=== PATIENT | female | born 1960 | race Caucasian/White ===

== ENCOUNTER 2017-10-10 13:52 | Emergency (ER) | payer OTHER, SELFPAY ==
[2017-10-10 13:53] VITALS: BP 174/110; PULSE 125; RESP 18; TEMP 36.8; O2SAT 98; BMI 30.2
--- NOTE | 2017-10-10 14:25 | RAD_ITS ---
STUDY: X-RAY CHEST REASON FOR EXAM: Female, 57 years old. Cough and chest pain. TECHNIQUE: Single AP portable view. COMPARISON: None available. FINDINGS: EKG wires overlie upper chest. The lungs appear well ventilated but show patchy ill-defined opacity in the right lung base, atelectasis versus pneumonia. Mild elevation right diaphragm seen. There is no demonstrated pleural abnormality. No large gross pneumothorax suggested. Normal size heart. Trachea near midline. Normal mediastinum and ladonna. Normal visualized pulmonary arteries. Normal visualized aortic arch and descending thoracic aorta. Normal visualized thoracic spine, ribs, clavicles and shoulders. There is no demonstrated abnormality of the visualized soft tissue structures of the upper abdomen. No subdiaphragmatic free air seen grossly. RAD/Chest 1 View (Portable) IMPRESSION: Right lung base heterogeneous opacity, atelectasis versus pneumonia. Clinical correlation follow-up recommended with repeat chest in 4-6 weeks after treatment to demonstrate complete clearing to exclude low probability neoplasm. Electronically Signed: Javed Aquino, at 15:48 EDT Tel , Service support ,
[2017-10-10] MEDS: LORazepam 2 MG/ML Syringe IV (14:34)
[2017-10-10] MEDS: 0.9% Normal Saline 1,000 ML 1000 ML IV (14:34)
[2017-10-10 14:41] LABS: Amphetamine Urine VISTA NEGATIVE (<1000 ng/mL); Barbiturate Urine VISTA NEGATIVE (< 200 ng/mL); Benzodiazepine Urine VISTA NEGATIVE (< 200 ng/mL); Cocaine Urine VISTA NEGATIVE (< 300 ng/mL); Ecstacy Urine VISTA NEGATIVE (< 500 ng/mL); Methadone Urine VISTA NEGATIVE (< 300 ng/mL); PCP Urine VISTA NEGATIVE (< 25 ng/mL); THC Urine VISTA NEGATIVE (< 50 ng/mL); Vista UDS pH Range 5
[2017-10-10 14:46] LABS: BUN 23 mg/dL (7-18); Creatinine, Serum 1.05 mg/dL (0.55-1.02); Glucose 93 mg/dL (74-106)
[2017-10-10 14:47] LABS: ALB/GLOB Ratio 1.1 RATIO (0.9-2.4); AST(SGOT) 37 U/L (15-37); Alanine Aminotransfer ALT/SGPT 39 U/L (13-56); Albumin, Serum 4.8 g/dL (3.2-5.0); Alkaline Phosphatase 77 U/L (45-117); Anion Gap 18 (5-15); BUN/Creat Ratio 21.9 RATIO (10-20); Calcium,Total 9.7 mg/dL (8.5-10.1); Chloride 103 mmol/L (98-107); EST Glomerular Filtration Rate 57 mL/min (>60); Est Glom Filt Rate - Afr Amer 69 mL/min (>60); Estimated Creatinine Clearance 46.19 ml/min; Globulin 4.3 g/dL (2.2-4.2); Lipase 220 U/L (73-393); Potassium 4.2 mmol/L (3.5-5.1); Protein, Total 9.1 g/dL (6.4-8.2); Sodium Level 138 mmol/L (136-145)
--- NOTE | 2017-10-10 15:39 | ED.DCSUM_ITS ---
- ER Visit Summary Date of Service: 10/10/17 Chief Complaint: [alcohol abuse] History of Present Illness: The patient is a 57 F [that presents following drinking for the last 4 days. She states she drinks a pint of vodka a day. Initially she stated she drank every day and then she later stated she does not drink every day. Her last drink was last evening. She does not appear intoxicated. She is mildly tachycardic. She does not appear altered or delirious. She is not currently having any hallucinations or tremors. She appears well and nontoxic. She has no other complaints.] Physical Examination: [General: The patient appears well and in no apparent distress. Patient is resting comfortably on cart. Skin: Warm, dry, no pallor noted. No rash. Head: Normocephalic, atraumatic Neck: Supple, nontender. Eye: PERRLA, EOMI ENT: Moist mucus membranes, pharynx within normal limits. Cardiovascular: Tachycardic rate and regular rhythm, no gallups or rubs Respiratory: Patient is in no distress, no accessory muscle use, lungs are clear to auscultation, no wheezing, rales or rhonchi Musculoskeletal: normal ROM, no deformity, no tenderness, no swelling. 2+ radial and DP pulses symmetric. GI: No tenderness to palpation, no masses appreciated. No rebound, guarding, or rigidity noted. Neurological: A&O, normal strength and sensation. GCS 15 Psychiatric: Cooperative] Test Results: [CMP within normal limits other than CO2 of 17. Liver enzymes and lipase within normal limits. Alcohol level was 89. Urine drug screen was negative. Chest x-ray shows no acute process in my evaluation.] Emergency Department Course and Treatment: [She was given IV fluids and IV Ativan with improvement of symptoms. On reevaluation at 1530 her vitals are stable, heart rate in the 90s and blood pressure is improved. She feels overall improved. She was given 50 mg of p.o. Librium. Initially I requested to admit the patient to the hospitalist for further treatment. Dr. Crowley evaluated the patient in the emergency department and does not feel she requires admission at this time. I spoke with patient again and at this time she is requesting discharge. Patient has changed her initial story somewhat now stating that she does not drink every day. She has no symptoms of DTs at this time. She will be given follow-up with the counseling center. She does not currently want detox. She understands to return with any new or worsening symptoms. Patient discharged home in improved condition.] Treatment Plan: [see above] Disposition: [discharge home, stable condition] Impression: [Alcohol Abuse] This note was generated with [employer] dictation software. It may contain incorrect words, spelling, and punctuation that were not noted in review of the chart prior to signing ED Disposition - Plan for ED Patient: Disposition: Home or Assisted Living Chief Complaint: Substance Abuse Instructions: ED Alcohol Abuse Referrals: Juan Jose Calix MD [STAFF PHYSICIAN] - Counseling,Center [GROUP OF PHYSICIANS] -
[2017-10-10] MEDS: chlordiazePOXIDE 25 MG Capsule 50 MG PO (15:50)
[2017-10-10 15:55] VITALS: BP 144/83; PULSE 100; RESP 17; O2SAT 100
--- NOTE | 2017-10-10 16:03 | PCM.CONS.GEN ---
Problem List (1) Alcohol abuse Status: Acute Reason for Consult Date of Consultation: 10/10/17 Reason for Consultation: alcohol abuse History of Present Illness: The patient is a 57 year old F who has been drinking a pint of vodka daily for the past 4 days. Patient states that she normally drinks 2 or 3 times per week. Patient states that days that she typically does not drink she feels okay. Patient has been sober in the past for about a month without any issues. Patient was just concerned because she drank for those 4 consecutive days and sought to seek treatment. Patient did receive Ativan in the emergency room the patient for potential admission. [] Past Medical History Medical History: Medical History (Last Updated 10/10/17 @ 16:05 by Jose Crowley DO) CAD (coronary artery disease) I25.10 Depression F32.9 HTN (hypertension) I10 Allergies sulfamethoxazole [From Bactrim] Allergy (Verified 10/10/17 13:55) Rash trimethoprim [From Bactrim] Allergy (Verified 10/10/17 13:55) Rash Home Medications: Ambulatory Orders Medication Instructions Recorded Atorvastatin Calcium [Atorvastatin 80 mg PO QHS 10/10/17 Calcium] Clopidogrel Bisulfate [Plavix] 75 mg PO DAILY 10/10/17 Lisinopril [Lisinopril] 20 mg PO DAILY 10/10/17 Sertraline HCl [Zoloft] 100 mg PO DAILY 10/10/17 Lives: Alone Smoking Status: Heavy Smoker (>10/day) Tobacco Use: Cigarettes Alcohol: Heavy Drugs: None - *Family History Maternal History Items: - - no CAD Review of Systems Constitutional: Denies: Chills, Fever, Weight Change Eyes: Reports: - - Sees spots but has been ongoing long time according the patient.. Denies: Blurred vision, Double vision HEENT: Denies: Head Aches, Sinus Congestion, Sinus Drainage Cardiovascular: Denies: Chest Pain, Palpitations Respiratory: Denies: Cough, Shortness of breath at rest, Sputum production Gastrointestinal: Denies: Abdominal Pain, Nausea, Vomiting Genitourinary: Denies: Dysuria Musculoskeletal: Denies: Joint Pain, Joint Tenderness Skin: Denies: Rash, Wounds Neurological: Denies: Numbness, Tingling, Focal weakness Psychiatric: Reports: Depression. Denies: Anxiety Hematologic/ Lymphatic: Denies: Easy Bruising, Easy Bleeding, Hx of blood clot Comment: All review of systems are negative except as mentioned in the history of present illness and the other review of systems. - Physical Exam General: Alert, Cooperative, No apparent distress HEENT: Atraumatic, Normocephalic Oral: Moist Mucosa, No Gingival or Mucosal Lesions/ Ulcerations Neck: No Nodes, Thyroid Normal Size and Texture Lungs: Clear to auscultation, Normal air movement, No rhonchi, No wheeze Cardiovascular: Regular rate, Regular Rhythm, Normal S1, Normal S2 Abdomen: Bowel Sounds Present, Soft, Non Tender, Non-Distended Extremities: No edema, No Calf Tenderness Skin: No rashes, No breakdown Psych/Mental Status: Normal Affect, Appropriate Vital Signs Temp Pulse Resp BP Pulse Ox 36.8 C 100 17 144/83 H 100 10/10/17 13:53 10/10/17 15:55 10/10/17 15:55 10/10/17 15:55 10/10/17 15:55 Oxygen Delivery Method Room Air Weight: 74.843 kg Body Mass Index (BMI) 30.2 Laboratory Tests Past 24 Hrs 10/10/17 10/10/17 10/10/17 14:20 14:20 14:20 Sodium 138 Potassium 4.2 Chloride 103 Carbon Dioxide 17.0 L Anion Gap 18 H BUN 23 H Creatinine 1.05 H Estim Creat Clear Calc 46.19 Est GFR (MDRD) Af Amer 69 Est GFR (MDRD) Non-Af 57 L BUN/Creatinine Ratio 21.9 H Glucose 93 Calcium 9.7 Total Bilirubin 0.40 AST 37 ALT 39 Alkaline Phosphatase 77 Total Protein 9.1 H Albumin 4.8 Globulin 4.3 H Albumin/Globulin Ratio 1.1 Lipase 220 Urine Opiates Screen NEGATIVE Urine Methadone Screen NEGATIVE Ur Barbiturates Screen NEGATIVE Ur Phencyclidine Scrn NEGATIVE Ur Amphetamines Screen NEGATIVE U Methamphetamin-MDMA NEGATIVE U Benzodiazepines Scrn NEGATIVE Urine Cocaine Screen NEGATIVE U Cannabinoids Screen NEGATIVE Ur Drug Screen Comment Ethyl Alcohol 89.0 Assessment/Plan All Active Problems Alcohol abuse (Acute) 1. Alcohol abuse Patient's last drink was last night Current calculated CIWA is 5 and therefore does not require inpatient treatment at this time. The patient did receive Ativan before this. Additionally make my decision with exception of these past 4 days. I do not feel that an of itself is a requirement for the patient be admitted for acute alcohol withdrawal Certainly the patient's symptoms were to get worse and she concerned for admission. Patient is not telling us in the truth about her actual alcohol consumption but I did ask the patient on several occasions that and had her clarify that she only drinks 2-3 times per week usually. Patient already has outpatient establishment with the counselors as well as AA. Patient encouraged to continue with those or restart this at her earliest convenience. Overall, the patient is stable and does not require inpatient hospitalization at this time. Thank you for the consult. Code Visit Office Visits / Consults: [id number] OP Consult L4
--- NOTE | 2017-10-10 16:09 | CON.PCM_ITS ---
Problem List (1) Alcohol abuse Status: Acute Reason for Consult Date of Consultation: 10/10/17 Reason for Consultation: alcohol abuse History of Present Illness: The patient is a 57 year old F who has been drinking a pint of vodka daily for the past 4 days. Patient states that she normally drinks 2 or 3 times per week. Patient states that days that she typically does not drink she feels okay. Patient has been sober in the past for about a month without any issues. Patient was just concerned because she drank for those 4 consecutive days and sought to seek treatment. Patient did receive Ativan in the emergency room the patient for potential admission. [] Past Medical History Medical History: Medical History (Last Updated 10/10/17 @ 16:05 by Jose Crowley DO) CAD (coronary artery disease) I25.10 Depression F32.9 HTN (hypertension) I10 Allergies sulfamethoxazole [From Bactrim] Allergy (Verified 10/10/17 13:55) Rash trimethoprim [From Bactrim] Allergy (Verified 10/10/17 13:55) Rash Home Medications: Ambulatory Orders Medication Instructions Recorded Atorvastatin Calcium [Atorvastatin 80 mg PO QHS 10/10/17 Calcium] Clopidogrel Bisulfate [Plavix] 75 mg PO DAILY 10/10/17 Lisinopril [Lisinopril] 20 mg PO DAILY 10/10/17 Sertraline HCl [Zoloft] 100 mg PO DAILY 10/10/17 Lives: Alone Smoking Status: Heavy Smoker (>10/day) Tobacco Use: Cigarettes Alcohol: Heavy Drugs: None - *Family History Maternal History Items: - - no CAD Review of Systems Constitutional: Denies: Chills, Fever, Weight Change Eyes: Reports: - - Sees spots but has been ongoing long time according the patient.. Denies: Blurred vision, Double vision HEENT: Denies: Head Aches, Sinus Congestion, Sinus Drainage Cardiovascular: Denies: Chest Pain, Palpitations Respiratory: Denies: Cough, Shortness of breath at rest, Sputum production Gastrointestinal: Denies: Abdominal Pain, Nausea, Vomiting Genitourinary: Denies: Dysuria Musculoskeletal: Denies: Joint Pain, Joint Tenderness Skin: Denies: Rash, Wounds Neurological: Denies: Numbness, Tingling, Focal weakness Psychiatric: Reports: Depression. Denies: Anxiety Hematologic/ Lymphatic: Denies: Easy Bruising, Easy Bleeding, Hx of blood clot Comment: All review of systems are negative except as mentioned in the history of present illness and the other review of systems. - Physical Exam General: Alert, Cooperative, No apparent distress HEENT: Atraumatic, Normocephalic Oral: Moist Mucosa, No Gingival or Mucosal Lesions/ Ulcerations Neck: No Nodes, Thyroid Normal Size and Texture Lungs: Clear to auscultation, Normal air movement, No rhonchi, No wheeze Cardiovascular: Regular rate, Regular Rhythm, Normal S1, Normal S2 Abdomen: Bowel Sounds Present, Soft, Non Tender, Non-Distended Extremities: No edema, No Calf Tenderness Skin: No rashes, No breakdown Psych/Mental Status: Normal Affect, Appropriate Vital Signs Temp Pulse Resp BP Pulse Ox 36.8 C 100 17 144/83 H 100 10/10/17 13:53 10/10/17 15:55 10/10/17 15:55 10/10/17 15:55 10/10/17 15:55 Oxygen Delivery Method Room Air Weight: 74.843 kg Body Mass Index (BMI) 30.2 Laboratory Tests Past 24 Hrs 10/10/17 10/10/17 10/10/17 14:20 14:20 14:20 Sodium 138 Potassium 4.2 Chloride 103 Carbon Dioxide 17.0 L Anion Gap 18 H BUN 23 H Creatinine 1.05 H Estim Creat Clear Calc 46.19 Est GFR (MDRD) Af Amer 69 Est GFR (MDRD) Non-Af 57 L BUN/Creatinine Ratio 21.9 H Glucose 93 Calcium 9.7 Total Bilirubin 0.40 AST 37 ALT 39 Alkaline Phosphatase 77 Total Protein 9.1 H Albumin 4.8 Globulin 4.3 H Albumin/Globulin Ratio 1.1 Lipase 220 Urine Opiates Screen NEGATIVE Urine Methadone Screen NEGATIVE Ur Barbiturates Screen NEGATIVE Ur Phencyclidine Scrn NEGATIVE Ur Amphetamines Screen NEGATIVE U Methamphetamin-MDMA NEGATIVE U Benzodiazepines Scrn NEGATIVE Urine Cocaine Screen NEGATIVE U Cannabinoids Screen NEGATIVE Ur Drug Screen Comment Ethyl Alcohol 89.0 Assessment/Plan All Active Problems Alcohol abuse (Acute) 1. Alcohol abuse * Patient's last drink was last night * Current calculated CIWA is 5 and therefore does not require inpatient treatment at this time. The patient did receive Ativan before this. Additionally make my decision with exception of these past 4 days. I do not feel that an of itself is a requirement for the patient be admitted for acute alcohol withdrawal * Certainly the patient's symptoms were to get worse and she concerned for admission. Patient is not telling us in the truth about her actual alcohol consumption but I did ask the patient on several occasions that and had her clarify that she only drinks 2-3 times per week usually. * Patient already has outpatient establishment with the counselors as well as AA. Patient encouraged to continue with those or restart this at her earliest convenience. Overall, the patient is stable and does not require inpatient hospitalization at this time. Thank you for the consult. Code Visit Office Visits / Consults: [id number] OP Consult L4
== END 2017-10-10 15:56 | disposition home or self-care (01) ==
PROVIDERS: Emergency Provider Emergency Medicine
DX: F10.10 Alcohol abuse, uncomplicated (principal); Y90.4 Blood alcohol level of 80-99 mg/100 ml; I25.10 Atherosclerotic heart disease of native coronary artery without angina pectoris; I10 Essential (primary) hypertension; F17.210 Nicotine dependence, cigarettes, uncomplicated; F32.9 Major depressive disorder, single episode, unspecified; I25.2 Old myocardial infarction; Z79.02 Long term (current) use of antithrombotics/antiplatelets; Z79.899 Other long term (current) drug therapy
CPT/HCPCS: 71045; 80053; 80307; 80320; 83690; 93005; 96361; 96374; 99285; J7030; A4216; G0480

== ENCOUNTER 2017-10-11 11:51 | Emergency (ER) | payer OTHER, SELFPAY ==
[2017-10-11 11:51] VITALS: BP 125/99; PULSE 120; RESP 20; TEMP 37.2; O2SAT 96; BMI 30.3
[2017-10-11 12:30] LABS: Absolute Lymphocyte Count 1.17 X10^3/ul (0.83-4.51); Absolute Neutrophil Count 4.9 X10^3/uL (2.0-7.7); Basophil# 0.04 X10^3/uL; Basophil% 0.6 % (0-1); Eosinophil# 0.05 X10^3/uL; Eosinophils% 0.8 % (0-5); Hematocrit 36.4 % (37-47); Hemoglobin 12.1 g/dl (12.0-15.0); Lymphocyte # 1.17 X10^3/ul (4.0); Lymphocyte % 18.2 % (19-41); Mean Corp Hgb Conc 33.2 g/gl (32-36); Mean Corpuscular Hgb 32.1 pg (27.0-32.0); Mean Corpuscular Volume 96.6 fL (81-99); Monocyte# 0.26 X10^3/uL; Neutrophil % 76.1 % (47-70); Platelet Count 141 K/mm3 (150-450); RBC Distribution Width CV 15.1 % (11.6-14.6); RBC Distribution Width SD 53.6 fl (35.1-43.9); Red Blood Count 3.77 M/mm3 (4.2-5.4); White Blood Count 6.4 K/mm3 (4.4-11.0)
[2017-10-11 12:31] LABS: POSITIVE COUNT NO; POSITIVE DIFFERENTIAL NO; POSITIVE MORPHOLOGY NO
[2017-10-11 12:47] LABS: Anion Gap 8 (5-15); BUN 16 mg/dL (7-18); BUN/Creat Ratio 21.8 RATIO (10-20); Chloride 105 mmol/L (98-107); Creatinine, Serum 0.73 mg/dL (0.55-1.02); EST Glomerular Filtration Rate 87 mL/min (>60); Est Glom Filt Rate - Afr Amer 105 mL/min (>60); Estimated Creatinine Clearance 66.44 ml/min; Glucose 147 mg/dL (74-106); Potassium 3.3 mmol/L (3.5-5.1); Sodium Level 139 mmol/L (136-145)
--- NOTE | 2017-10-11 13:15 | ED.VISSUMM ---
- ER Visit Summary Date of Service: 10/11/17 Chief Complaint: Palpitations, alcohol withdrawal History of Present Illness: The patient is a 57 F who presents with the above symptoms. She was seen here last night requesting alcohol withdrawal detoxification and admission to the hospital. She met no criteria last night. She comes back today with similar symptoms. She feels like her heart is racing. No chest pain. She did not drink anything last night. She states that she was drinking about a pint of liquor per day. Her last drink was 2 days ago. Physical Examination: Vital signs reviewed. HEENT exam unremarkable. Heart is tachycardic and regular rhythm without murmurs. Lungs are clear to auscultation. Abdomen is soft and nontender. Extremities reveal no edema. Skin exam normal. Neurologic exam normal. Test Results: EKG is sinus rhythm with rate of 107. No ST changes. Labs reveal platelet count of 141, potassium 3.3, glucose 147. Troponin normal Emergency Department Course and Treatment: Repeat heart rate of the patient is 85. Her heart rate is likely due to a little bit of withdrawal. I had [facility] come down and evaluate the patient. Her Ciwa score is a 4 which does not qualify her for admission. Patient will be discharged to manage as an outpatient. Treatment Plan: [] Disposition: Discharge Impression: Alcohol withdrawal This note was generated with [employer] dictation software. It may contain incorrect words, spelling, and punctuation that were not noted in review of the chart prior to signing ED Disposition - Plan for ED Patient: Chief Complaint: Chest Pain Referrals: Care Physician,No Primary [Primary Care Provider] -
--- NOTE | 2017-10-11 13:17 | ED.DEP ---
ED Disposition - Plan for ED Patient: Disposition: Home or Assisted Living Chief Complaint: Chest Pain Instructions: ED Withdrawal Alcohol Referrals: Care Physician,No Primary [Primary Care Provider] -
[2017-10-11 13:23] VITALS: BP 152/83; PULSE 108; RESP 21; O2SAT 96
[2017-10-11] MEDS: 0.9% Normal Saline 1,000 ML 1000 ML IV (13:23)
[2017-10-11 13:26] VITALS: BP 152/83; PULSE 97; RESP 13; O2SAT 97
== END 2017-10-11 13:36 | disposition home or self-care (01) ==
PROVIDERS: Emergency Provider Emergency Medicine
DX: F10.239 Alcohol dependence with withdrawal, unspecified (principal); I25.10 Atherosclerotic heart disease of native coronary artery without angina pectoris; Z79.02 Long term (current) use of antithrombotics/antiplatelets; Z79.899 Other long term (current) drug therapy; Z95.5 Presence of coronary angioplasty implant and graft
CPT/HCPCS: 80048; 84484; 85025; 93005; 99284; J7030

== ENCOUNTER 2018-01-30 22:55 | Emergency (ER) | payer OTHER, SELFPAY ==
[2018-01-30 22:57] VITALS: BP 143/74; PULSE 110; RESP 17; TEMP 35.8; O2SAT 94; BMI 39.6
--- NOTE | 2018-01-30 23:19 | EKG12_ITS ---
Test Reason : [facility] [place] Blood Pressure : / mmHG Vent. Rate : 094 BPM Atrial Rate : 094 BPM P-R Int : 160 ms QRS Dur : 086 ms QT Int : 402 ms P-R-T Axes : 036 078 082 degrees QTc Int : 502 ms Normal sinus rhythm Possible Inferior infarct , age undetermined Cannot rule out Anterior infarct , age undetermined Prolonged QT Abnormal ECG Confirmed by SALLY CARSON, JAE ([id number]), medical editor ABIMAEL CLARK ([id number]) on 02/04/2018 3:42:26 PM Referred By: MARY Confirmed By:JAE ZAVALA MD
--- NOTE | 2018-01-30 23:30 | ED.RN ---
bedside one on one observation started.
[2018-01-30 23:39] LABS: Absolute Lymphocyte Count 3.08 X10^3/ul (0.83-4.51); Absolute Neutrophil Count 3.1 X10^3/uL (2.0-7.7); Basophil# 0.11 X10^3/uL; Basophil% 1.6 % (0-1); Eosinophil# 0.22 X10^3/uL; Eosinophils% 3.1 % (0-5); Hematocrit 39.6 % (37-47); Hemoglobin 12.2 g/dl (12.0-15.0); Lymphocyte # 3.08 X10^3/ul (4.0); Lymphocyte % 43.6 % (19-41); Mean Corp Hgb Conc 30.8 g/gl (32-36); Mean Corpuscular Hgb 25.8 pg (27.0-32.0); Mean Corpuscular Volume 83.9 fL (81-99); Mean Platelet Vol. 9.1 fl (6.2-12.0); Monocyte# 0.52 X10^3/uL; Monocyte% 7.4 % (0-10); Neutrophil # 3.08 X10^3/uL (2.7-7.7); Neutrophil % 43.6 % (47-70); Platelet Count 297 K/mm3 (150-450); RBC Distribution Width SD 51.9 fl (35.1-43.9); Red Blood Count 4.72 M/mm3 (4.2-5.4); White Blood Count 7.1 K/mm3 (4.4-11.0)
[2018-01-30 23:40] LABS: POSITIVE COUNT NO; POSITIVE DIFFERENTIAL NO; POSITIVE MORPHOLOGY NO
[2018-01-30 23:56] LABS: ALB/GLOB Ratio 0.8 RATIO (0.9-2.4); AST(SGOT) 24 U/L (15-37); Alanine Aminotransfer ALT/SGPT 25 U/L (13-56); Albumin, Serum 3.8 g/dL (3.2-5.0); Alkaline Phosphatase 121 U/L (45-117); Anion Gap 10 (5-15); BUN 19 mg/dL (7-18); BUN/Creat Ratio 25.2 RATIO (10-20); Calcium,Total 8.6 mg/dL (8.5-10.1); Chloride 109 mmol/L (98-107); Creatinine, Serum 0.76 mg/dL (0.55-1.02); EST Glomerular Filtration Rate 84 mL/min (>60); Est Glom Filt Rate - Afr Amer 101 mL/min (>60); Estimated Creatinine Clearance 63.82 ml/min; Globulin 4.5 g/dL (2.2-4.2); Glucose 114 mg/dL (74-106); Potassium 3.6 mmol/L (3.5-5.1); Protein, Total 8.3 g/dL (6.4-8.2); Sodium Level 143 mmol/L (136-145)
[2018-01-31] VITALS (9 sets, daily range): BP systolic 106–154; BP diastolic 63–79; PULSE 78–100; RESP 15–19; O2SAT 88–95
--- NOTE | 2018-01-31 00:21 | ED.RN ---
CRITICAL ETOH OF [address] HERNANDEZ NOTIFIED. NO NEW ORDERS.
[2018-01-31] MEDS: LORazepam 1 MG Tablet PO (00:30)
--- NOTE | 2018-01-31 00:30 | ED.RN ---
PATIENT VERY ANXIOUS AND DEPRESSED. 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 PT ASKING TO LEAVE AND ALLOW STAFF TO LET HER . PT CONTINOUSLY STATES SHE WANTS TO AND IS VERY TEARFUL. PT AT DESK FOR 15MIN AND EVENTUALLY AGREED TO GO BACK INTO ROOM AFTER THERAPEUTIC CONVERSATION AND LISTENING TO HER. PT REMAINED VERY TEARFUL, UPSET, AND ANXIOUS BUT DID TAKE ATIVAN PO.
--- NOTE | 2018-01-31 01:30 | ED.RN ---
PATIENT APPEARS TO BE SLEEPING AND IS RESTING QUIETLY. SITTER AT BEDSIDE
--- NOTE | 2018-01-31 03:18 | ED.DCSUM_ITS ---
- ER Visit Summary Date of Service: 01/31/18 Chief Complaint: Suicidal ideation History of Present Illness: The patient is a 57 F who presents stating that she does not want to live anymore. No suicidal plan. She states her brother killed himself earlier this year in October via a gunshot wound. No recent medical illness such as fever chest pain shortness of breath vomiting diarrhea. She is intoxicated on alcohol. Physical Examination: Heart rate 110 vitals otherwise unremarkable Patient tearful and admits to suicidal thoughts and not wanting to live Heart regular rhythm tachycardia Lungs are clear Abdomen soft Alert Test Results: EKG shows normal sinus rhythm at a rate of 94. Labs essentially unremarkable except alcohol 321. Urine drug screen pending. Emergency Department Course and Treatment: Patient was given Ativan here. Laboratory workup as above. Urine drug screen pending. Patient will be evaluated by crisis this morning once clinically sober for final disposition. Treatment Plan: [] Disposition: Pending crisis evaluation Impression: Suicidal ideation Depression This note was generated with [employer] dictation software. It may contain incorrect words, spelling, and punctuation that were not noted in review of the chart prior to signing ED Disposition - Plan for ED Patient: Chief Complaint: Suicidal Referrals: Care Physician,No Primary [Primary Care Provider] -
[2018-01-31 04:46] LABS: Amphetamine Urine VISTA NEGATIVE (<1000 ng/mL); Barbiturate Urine VISTA NEGATIVE (< 200 ng/mL); Benzodiazepine Urine VISTA NEGATIVE (< 200 ng/mL); Cocaine Urine VISTA NEGATIVE (< 300 ng/mL); Ecstacy Urine VISTA NEGATIVE (< 500 ng/mL); Methadone Urine VISTA NEGATIVE (< 300 ng/mL); PCP Urine VISTA NEGATIVE (< 25 ng/mL); THC Urine VISTA NEGATIVE (< 50 ng/mL); Vista UDS pH Range 5
--- NOTE | 2018-01-31 04:47 | ED.RN ---
PATIENT AWAKE AND SITTING AT BEDSIDE AFTER GOING TO THE BR TO URINATE. PT COOPERATIVE AT THIS TIME.
[2018-01-31] MEDS: Clopidogrel Bisulfate 75 MG Tablet PO (09:55)
[2018-01-31] MEDS: Lisinopril 20 MG Tablet PO (09:55)
--- NOTE | 2018-01-31 10:18 | NURSING ---
CALLED CRISIS. LEFT MESSAGE WITH ZAC VAZQUEZ.
--- NOTE | 2018-01-31 10:35 | NURSING ---
POLO, CRISIS, CALLED BACK. HE WILL BE OVER
[2018-01-31] MEDS: FLUoxetine 20 MG Capsule 40 MG PO (10:36)
--- NOTE | 2018-01-31 11:31 | NURSING ---
POLO, CRISIS, HERE
--- NOTE | 2018-01-31 14:07 | ED.RN ---
suicide precautions d/c'd. belongings returned.
--- NOTE | 2018-01-31 14:10 | ED.DEP ---
ED Disposition - Plan for ED Patient: Disposition: Home or Assisted Living Chief Complaint: Suicidal Instructions: ED Depression, ED Alcohol Intoxication Referrals: Counseling,Center [GROUP OF PHYSICIANS] - As soon as possible Additional Instructions: Follow-up with a counseling center. Follow-up with alcohol counseling in your area.
--- OUTSIDE RECORDS SUMMARY | 2018-03-28 00:07 | XMS RPT_ITS ---
:1960 Author Organization [facility] Support Name Relationship Address Phone [facility] Unavailable [address] + [place] [address] ОЛЬГА FIELDS Unavailable Unavailable + [facility] Unavailable [address] + [place] [address] ОЛЬГА FIELDS Unavailable Unavailable + White, Toyin Unavailable Unavailable + White, Toyin Unavailable Unavailable + White, Toyin Unavailable Unavailable + White, Toyin Unavailable Unavailable + White, Toyin Unavailable Unavailable + White, Toyin Unavailable Unavailable + White, Toyin Unavailable Unavailable + White, Toyin Unavailable Unavailable + White, Toyin Unavailable Unavailable + White, Toyin Unavailable Unavailable + White, Toyin Unavailable Unavailable + White, Toyin Unavailable Unavailable + White, Toyin Unavailable Unavailable + White, Toyin Unavailable Unavailable + [facility] Unavailable [address] + [place] [address] ОЛЬГА FIELDS Unavailable Unavailable + [facility] Unavailable [address] + [place] [address] ОЛЬГА FIELDS Unavailable Unavailable + [facility] Unavailable . +[place] [address] ОЛЬГА FIELDS Unavailable Unavailable + White, Toyin Unavailable Unavailable + White, Toyin Unavailable Unavailable + White, Toyin Unavailable Unavailable + White, Toyin Unavailable Unavailable + White, Toyin Unavailable Unavailable + Care Team Providers Name Role Phone Primay Care Physicia, No Primary Care Unavailable Gilberto Greene Attending Unavailable SUMMER BARNEY Primary Care Unavailable Chapin Hogan Attending Unavailable Jose Crowley Attending Unavailable SUMMER BARNEY Primary Care Unavailable Gilberto Greene Attending Unavailable Primay Care Physicia, No Primary Care Unavailable Primay Care Physicia, No Primary Care Unavailable Carlos Celestin Attending Unavailable Nasima Borrego Attending Unavailable PROVIDER, UNKNOWN Referring Unavailable Mahogany, Sonya Primary Care Unavailable Lefty Souza Attending Unavailable PROVIDER, UNKNOWN Referring Unavailable Mahogany, Sonya Primary Care Unavailable Al Zavala Attending Unavailable PROVIDER, UNKNOWN Referring Unavailable Mahogany, Sonya Primary Care Unavailable Kishor Lowry Attending Unavailable PROVIDER, UNKNOWN Referring Unavailable Mahogany, Sonya Primary Care Unavailable Kishor Lowry Attending Unavailable PROVIDER, UNKNOWN Referring Unavailable Mahogany, Sonya Primary Care Unavailable Kishor Lowry Attending Unavailable PROVIDER, UNKNOWN Referring Unavailable Mahogany, Sonya Primary Care Unavailable DE BARKER Attending Unavailable PROVIDER, UNKNOWN Referring Unavailable Mahogany, Sonya Primary Care Unavailable Chace Wahl Attending Unavailable PROVIDER, UNKNOWN Referring Unavailable Mahogany, Sonya Primary Care Unavailable PROVIDER, UNKNOWN Referring Unavailable Mahogany, Sonya Primary Care Unavailable Al Zavala Attending Unavailable Chace Wahl Attending Unavailable PROVIDER, UNKNOWN Referring Unavailable Mahogany, Sonya Primary Care Unavailable PROVIDER, UNKNOWN Referring Unavailable Mahogany, Sonya Primary Care Unavailable Kishor Lowry Attending Unavailable Kishor Lowry Attending Unavailable PROVIDER, UNKNOWN Referring Unavailable Mahogany, Sonya Primary Care Unavailable Lefty Souza Attending Unavailable PROVIDER, UNKNOWN Referring Unavailable Mahogany, Sonya Primary Care Unavailable Nasima Borrego Attending Unavailable PROVIDER, UNKNOWN Referring Unavailable Mahogany, Sonya Primary Care Unavailable [place], Imola Attending Unavailable PROVIDER, UNKNOWN Referring Unavailable Mahogany, Sonya Primary Care Unavailable [place], Imola Attending Unavailable PROVIDER, UNKNOWN Referring Unavailable Mahogany, Sonya Primary Care Unavailable PROVIDER, UNKNOWN Referring Unavailable Mahogany, Sonya Primary Care Unavailable AlishaAnnemarient Attending Unavailable PROVIDER, UNKNOWN Referring Unavailable Mahogany, Sonya Primary Care Unavailable PROVIDER, UNKNOWN Attending Unavailable Chace Wahl Attending Unavailable PROVIDER, UNKNOWN Referring Unavailable Mahogany, Sonya Primary Care Unavailable Jim Celeste Attending Unavailable PROBLEMS PROBLEMS DATE TYPE CONDITION / CODE ATTENDING STATUS SOURCE Admitting Major depressive Alisha Jadiel [employer] 8 Diagnosis disorder, single System episode, unspecified Repository / F32.9(ICD-10) Admitting Anxiety disorder, El[place] [facility] 8 Diagnosis unspecified / System F41.9(ICD-10) Repository Admitting Essential (primary) Alisha [facility] 8 Diagnosis hypertension / System I10(ICD-10) Repository Admitting Nicotine dependence, [place], Jadiel [employer] 8 Diagnosis unspecified, System uncomplicated / Repository F17.200(ICD-10) Admitting rn integrity (current) Alisha Jadiel [employer] 8 Diagnosis use of aspirin / System Z79.82(ICD-10) Repository Admitting Other psychoactive Alisha Jadiel [employer] 8 Diagnosis substance abuse, in System remission / Repository F19.11(ICD-10) Admitting Anemia, unspecified / Alisha Jadiel [employer] 8 Diagnosis D64.9(ICD-10) System Repository Admitting Hemorrhage of anus Alisha, Jadiel [employer] 8 Diagnosis and rectum / System K62.5(ICD-10) Repository Admitting Psoriasis, Alisha, Jadiel [employer] 8 Diagnosis unspecified / System L40.9(ICD-10) Repository Admitting Acquired absence of [place], [facility] 8 Diagnosis both cervix and System uterus / Repository Z90.710(ICD-10) Admitting Allergy status to Jadiel Brito [facility] 8 Diagnosis sulfonamides status / System Z88.2(ICD-10) Repository Admitting Nicotine dependence, Unknown [facility] 8 Diagnosis cigarettes, System uncomplicated / Repository F17.210(ICD-10) Admitting Unsp fracture of unsp Unknown [facility] 8 Diagnosis thoracic vertebra, System init for clos fx / Repository S22.009A(ICD-10) Admitting Pain in thoracic Unknown [facility] 8 Diagnosis spine / M54.6(ICD-10) System Repository Admitting Other spondylosis, Unknown [facility] 8 Diagnosis lumbar region / System M47.896(ICD-10) Repository Admitting Overexertion from Unknown [facility] 8 Diagnosis strenuous movement or System load, init / Repository X50.0XXA(ICD-10) Admitting Dorsalgia, Unknown [facility] 8 Diagnosis unspecified / System M54.9(ICD-10) Repository Admitting Acute upper Zavala, [facility] 8 Diagnosis respiratory Al System infection, Repository unspecified / J06.9(ICD-10) Admitting Acute sinusitis, Zavala, [facility] 8 Diagnosis unspecified / Al System J01.90(ICD-10) Repository Admitting Athscl heart disease [place], [facility] 8 Diagnosis of [place] Al System unsp ang pctrs / Repository I25.119(ICD-10) Admitting Melena / Zavala, [facility] 8 Diagnosis K92.1(ICD-10) Al System Repository Admitting Hemorrhagic disord Zavala, [facility] 8 Diagnosis d/t extrinsic Al System circulating Repository anticoagulants / D68.32(ICD-10) Admitting Gastrointestinal Zavala, [facility] 8 Diagnosis hemorrhage, Al System unspecified / Repository K92.2(ICD-10) Admitting Iron deficiency Zavala, [facility] 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) Repository / D50.0(ICD-10) Admitting Diaphragmatic hernia Lucas [employer] 8 Diagnosis without obstruction [employer] [facility] or gangrene / Repository K44.9(ICD-10) Admitting Angiodysplasia of Lucas [employer] 8 Diagnosis stomach and duodenum [employer] [facility] without bleeding / Repository K31.819(ICD-10) Admitting rn integrity (current) Lucas [employer] 8 Diagnosis use of [employer] [facility] antithrombotics/antip Repository latelets / Z79.02(ICD-10) Admitting Presence of coronary Lucas [employer] 8 Diagnosis angioplasty implant [employer] [facility] and graft / Repository Z95.5(ICD-10) Admitting Gastro-esophageal Lucas [employer] 8 Diagnosis reflux disease with [employer] [facility] esophagitis / Repository K21.0(ICD-10) Admitting Obesity, unspecified Lucas [employer] 8 Diagnosis / E66.9(ICD-10) [facility] [employer] [facility] Repository Admitting Body mass index (BMI) [facility] [employer] 8 Diagnosis 30.0-30.9, adult / [employer] [facility] Z68.30(ICD-10) Repository Admitting Adverse effect of Lucas [employer] 8 Diagnosis antithrombotic drugs, [employer] [facility] initial encounter / Repository T45.525A(ICD-10) Admitting Right upper quadrant Chace Wahl [employer] 8 Diagnosis pain / R10.11(ICD-10) System Repository Admitting Acute posthemorrhagic Chace Wahl [employer] 8 Diagnosis anemia / D62(ICD-10) System Repository Admitting Unknown / Jim Celeste [employer] [facility] 8 diagnosis UNK(Unknown) [facility] [place] Repository Admitting Personal history of Nasima Borrego [employer] 8 Diagnosis pneumonia (recurrent) System / Z87.01(ICD-10) Repository Admitting Insomnia, unspecified Nasima Borrego [employer] 8 Diagnosis / G47.00(ICD-10) System Repository Admitting Other nonspecific Nasima Borrego [facility] 8 Diagnosis abnormal finding of System lung field / Repository R91.8(ICD-10) Unknown F10.10 - Alcohol [place], [place] [address] abuse, uncomplicated [facility] / F10.10(ICD-10) Hospital Repository Admitting Major depressive [facility] [employer] 8 Diagnosis disorder, recurrent, Kishor System moderate / Repository F33.1(ICD-10) Admitting Alcohol abuse, in [facility] [employer] 8 Diagnosis remission / Kishor System F10.11(ICD-10) Repository Admitting Oth bacterial agents [facility] [employer] Diagnosis as the cause of Kishor System diseases classd Repository elswhr / B96.89(ICD-10) Admitting Panic disorder Vish Chace [facility] [employer] 7 Diagnosis [episodic paroxysmal System anxiety] / Repository F41.0(ICD-10) PROCEDURES PROCEDURES No Procedure Records FoundRESULTS RESULTS EMERGENCY DEPARTMENT Observed: 02/18/2018 Status: C Source: [place]OLA SUMMARY 7:30 AM [facility] REPOSITORY [facility] Medical Records Department [address] [place] [address] Emergency Department Summary 02/17/18 1539 MR#: [id number] Acct: [id number] Name: ROBYN FIELDS Rep #: [id number] : 1960 57 From: Gilberto Greene MD PCP: Care Physician, No Primary Status: REG ER ADDENDUM by Dwaine Noriega MD on 02/18/18 at 0730 Patient's case and care was turned over to me at 0700. We received a call last evening that the psychiatrist at [facility] was concerned choice would experience alcohol withdrawal. Requested observation for 24 hours. Patient has been cooperative. Morning meds and breakfast was ordered. History of alcohol use for 2 days. Binging is not known or associated with alcohol withdrawal and reason prophylactic treatment was not initiated. Date Dwaine Noriega MD cc: No Primary Care Physician * Addendum ADDENDUM by Hunter Eaton DO on 02/18/18 at 0432 Patient was seen by crisis the patient has been accepted to [facility] under pink slip that I filled out. Unfortunately the psychiatrist that has accepted her once the patient to be in the emergency room for the next 24 hours at a concerns that she may develop delirium tremens. Per crisis [facility] is the only facility that can take her. Date Hunter Eaton DO cc: No Primary Care Physician * Addendum - ER Visit Summary Date of Service: 02/17/18 Chief Complaint: Alcohol intoxication/suicidal ideation History of Present Illness: The patient is a 57 F who presents with alcohol intoxication and then she tells us that she does not want to live anymore. She states that she has been drinking a pint of vodka per day for the past 2 days. She states that she does not want to live. Her brother committed suicide in October. She states that since the holidays are starting to come around she has been feeling more depressed. She has never tried to hurt herself in the past. She has never been admitted to a psychiatric facility previously. She states that she has not had any problems with drinking alcohol prior to the past couple of days. Physical Examination: Vital signs reviewed. HEENT exam unremarkable. Heart is tachycardic and regular rhythm without murmurs. Lungs are clear to auscultation. Abdomen is soft and nontender. Extremities reveal no edema. Skin exam normal. Neurologic exam normal. The patient does smell of alcohol. She does admit to being suicidal. She does appear depressed and tearful. Test Results: Screening laboratory examinations will be performed. Emergency Department Course and Treatment: Patient will be medically cleared. Her alcohol level likely will be elevated. She will be observed until clinically sober. I did give her Ativan to help calm her down as she was trying to leave the emergency department. Patient will then be evaluated by crisis. Treatment Plan: [] Disposition: Pending Impression: Suicidal ideation, alcohol intoxication This note was generated with [employer] software. It may contain incorrect words, spelling, and punctuation that were not noted in review of the chart prior to signing ED Disposition - Plan for ED Patient: Chief Complaint: Suicidal Referrals: Care Physician,No Primary [Primary Care Provider] - What to do if you have Problems For any increased pain, shortness of breath, bleeding, nausea or vomiting, chest pain, or any unexpected problems, contact your Primary Care Provider. Call [facility] ([phone]) or report to the closest Emergency Room. Call 911 if necessary. 02/17/18 1614 <Electronically signed by Gilberto Greene MD> Date Gilberto Greene MD Cosigner Signature (If Indicated): Date CC: No Primary Care Physician ALCOHOL, BLOOD Collected: 02/17/2018 Status: F Source: MEGA (MEDICAL)-SERUM 9:50 PM [facility] REPOSITORY TYPE CODE TESTS RESULT OUT OF RANGE REFERENCE UNITS LAB L501.9100 mg/dL Normal SERUM 72.0 ETOH Result Comment: The serum:whole blood ethanol ratio is approximately 1.14 and varies slightly with hematocrit. Medical Alcohol reference interval and critical value in non-tolerant individuals; 50 - 100 Impairment 100 Intoxication 100 - 250 Severe Poisoning 250 - 400 Deep/possible fatal coma Performed By: #### L501.9100 #### [facility] [address] [place], [address] URINE DRUG SCREEN Collected: 02/17/2018 Status: F Source: MEGA (VISTA) 4:00 PM [facility] REPOSITORY TYPE CODE TESTS RESULT OUT OF RANGE REFERENCE UNITS LAB L505.0075 TO BE Normal CONFIRMED Result Comment: CONFIRMATORY TESTING FOR ALL POSITIVE URINE DRUG SCREEN RESULTS WILL ONLY BE SENT OUT UPON PHYSICIAN ORDER. VISTA Urine Drug Screen methods provide only preliminary analytical test results. A more specific alternate chemical method must be used in order to obtain a confirmed analytical result. Gas chromatography/mass spectrometery (GC/MS) is the preferred confirmatory method. Clinical consideration and professional judgement should be applied to any drug of abuse test result, particularly when preliminary positive results are used. URINE TCA TESTING MUST BE ORDERED SEPARATELY. USE TEST MNEMONIC: [facility] LAB L505.5005 VISTA UDS PH 7 Normal LAB L505.5015 <1000 ng/mL AMPHETAMINES Normal NEGATIVE LAB L505.5025 < 200 ng/mL BARBITIURATES Normal NEGATIVE LAB L505.5035 < 200 ng/mL BENZODIAZIPINE Normal NEGATIVE LAB L505.5045 < 300 ng/mL COCAINE Normal NEGATIVE LAB L505.5055 < 500 ng/mL ECSTACY Normal NEGATIVE LAB L505.5065 < 300 ng/mL METHADONE Normal NEGATIVE LAB L505.5075 < 300 ng/mL OPIATES Normal NEGATIVE LAB L505.5085 < 25 ng/mL PCP Normal NEGATIVE LAB L505.5095 < 50 ng/mL THC Normal NEGATIVE Performed By: #### L505.5000 #### [facility] [address] [place], [place], [address] URINALYSIS, COMPLETE Collected: 02/17/2018 Status: F Source: ENOLA 4:00 PM [facility] REPOSITORY Order Comment: Order Date: 02/18/18 How was Urine Obtained? CLEAN CATCH TYPE CODE TESTS RESULT OUT OF RANGE REFERENCE UNITS LAB L400.3000 Yellow COLOR Normal Yellow LAB L400.3050 Clear Sl Normal CLARITY Cldy LAB L400.3200 Normal mg/dl Normal GLUCOSE, UR Normal LAB L400.3300 Negative mg/dL Normal BILIRUBIN URINE Negative LAB L400.3400 Negative mg/dl Normal KETONE UR Negative LAB L400.3465 1.002-1.030 Normal SP.GR. DIPSTX 1.020 LAB L400.3550 5.0 - 8.0 pH UR Normal 6.0 LAB L400.3600 Negative mg/dl High PROT 30 DIPSTX LAB L400.3700 Normal mg/dl Normal UROBILI Normal LAB L400.3750 Negative Normal NITRITE UR Negative LAB L400.3780 Negative /ul High 25 OCCULT BLOOD-UR LAB L400.3800 Negative /ul LEUK Normal ESTERASE Negative LAB L400.4050 0-5 /hpf WBC 0 Normal SEEN LAB L400.4100 0-5 /hpf Normal RBC-UA 0-5 SEEN LAB L400.4150 5-10 /hpf SQUAM Normal EPI 0-5 SEEN LAB L400.4300 None Seen /hpf 0 Normal BACTERIA SEEN LAB L400.4350 <or=2+ /hpf 0 Normal MUCUS, URINE SEEN LAB L400.4900 1+ Normal AMORPHOUS Performed By: #### L400.0001 #### [facility] [address] [place], [address] CBC W/DIFF, AUTOMATED Collected: 02/17/2018 Status: F Source: ENOLA 3:50 PM [facility] REPOSITORY TYPE CODE TESTS RESULT OUT OF RANGE REFERENCE UNITS LAB L100.1000 4.4-11.0 K/mm3 Normal WBC 10.4 LAB L100.1200 4.2-5.4 M/mm3 Normal RBC 5.20 LAB L100.1300 12.0-15.0 g/dl Normal HGB 13.2 LAB L100.1400 37-47 % Normal HCT 43.0 LAB L100.1500 81-99 fL Normal MCV 82.7 LAB L100.1600 27.0-32.0 pg Low MCH 25.4 LAB L100.1700 32-36 g/gl Low MCHC 30.7 LAB L100.1810 11.6-14.6 % High RDW CV 17.3 LAB L100.1820 35.1-43.9 fl High RDW SD 52.9 LAB L100.1900 150-450 K/mm3 Normal PLT 334 LAB L100.2000 6.2-12.0 fl Normal MPV 8.9 LAB L100.2100 47-70 % Normal NEUT% 57.7 LAB L100.2200 19-41 % Normal LY% 34.9 LAB L100.2300 0-10 % Normal MONO% 4.8 LAB L100.2400 0-5 % Normal EO% 1.2 LAB L100.2500 0-1 % Normal BASO% 1.0 LAB L100.2550 0.0-0.9 % Normal IM GRAN % 0.400 Result Comment: IG% - Immature Granulocytes (promyelocytes, myelocytes and metamyelocytes) > 1% indicates that a LEFT SHIFT is Present. LAB L100.2620 2.0-7.7 X10 3/uL Normal Absolute Neut 6.0 LAB L100.2720 0.83-4.51 X10 3/ul Normal Absolute Lymph 3.62 Performed By: #### L100.0100 #### [facility] [place], [address] COMPREHENSIVE METABOLIC Collected: 02/17/2018 Status: F Source: MEGA LOVE 3:50 PM [facility] REPOSITORY TYPE CODE TESTS RESULT OUT OF RANGE REFERENCE UNITS LAB L501.0100 74-106 mg/dL Normal GLU 79 Result Comment: Please note revised GLUCOSE reference range effective 2017. LAB L501.1000 7-18 mg/dL Normal BUN 18 LAB L501.1100 0.55-1.02 mg/dL Normal CREAT,SERUM 0.83 Result Comment: The validity of the calculated GFR AND GFRAA in patients over 70 years has not been determined. Clinical correlation is essential. LAB L501.1110 >60 mL/min Normal EST GFR 75 Result Comment: Non- GFR Calc LAB L501.1115 >60 mL/min Normal EST GFR - AA 90 Result Comment: GFR Calc LAB L501.1255 ml/min Normal Estimated CRCL 58.43 LAB L501.1300 10-20 RATIO High BUN/CRE 21.6 LAB L501.1500 6.4-8. g/dL High 2 T PROT 9.2 LAB L501.1800 3.2-5. g/dL Normal 0 ALB 4.4 LAB L501.1950 2.2-4. g/dL High 2 GLOB 4.8 LAB L501.2000 0.9-2. RATIO Normal 4 A/G 0.9 LAB L501.2200 8.5-10 mg/dL Normal .1 CA 8.7 LAB L501.4100 15-37 U/L Normal AST 27 LAB L501.4305 45-117 U/L Normal ALK P 113 LAB L501.4405 13-56 U/L Normal ALT 28 LAB L501.4600 0.20-1 mg/dL Normal .00 T BILI 0.40 LAB L501.5300 136-14 mmol/L Normal 5 NA 140 LAB L501.5600 3.5-5. mmol/L Normal 1 K 3.8 LAB L501.5900 98-107 mmol/L Normal CL 105 LAB L501.6100 21.0-3 mmol/L Low 2.0 CO2 18.0 LAB L501.6200 5-15 High GAP 17 Performed By: #### L500.4050 #### [facility] [address] [place], [address] ALCOHOL, BLOOD Collected: 02/17/2018 Status: F Source: ENOLA (MEDICAL)-SERUM 3:50 PM [facility] REPOSITORY TYPE CODE TESTS RESULT OUT OF RANGE REFERENCE UNITS LAB L501.9100 mg/dL Normal SERUM 299.0 ETOH Result Comment: The serum:whole blood ethanol ratio is approximately 1.14 and varies slightly with hematocrit. Medical Alcohol reference interval and critical value in non-tolerant individuals; 50 - 100 Impairment 100 Intoxication 100 - 250 Severe Poisoning 250 - 400 Deep/possible fatal coma Performed By: #### L501.9100 #### [facility] [address] [place], [address] 12 LEAD ELECTROCARDIOGRAM Observed: 02/04/2018 Status: F Source: ENOLA 3:43 PM [facility] REPOSITORY [facility] Cardiovascular Services [address] [place] [address] 12 Lead EKG 01/30/18 2338 MR#: [id number] Acct: [id number] Name: ROBYN FIELDS Rep #: [id number] : 1960 57 From: Chace Zavala MD Attending Dr: Status: DEP ER Ordering Dr: Carlos Celestin MD Date: 01/30/18 Location: ED Sex: F C Admitted: Test Reason : [facility] [place] Pressure : / mmHG Vent. Rate : 094 BPM Atrial Rate : 094 BPM P-R Int : 160 ms QRS Dur : 086 ms QT Int : 402 ms P-R-T Axes : 036 078 082 degrees QTc Int : 502 ms Normal sinus rhythm Possible Inferior infarct , age undetermined Cannot rule out Anterior infarct , age undetermined Prolonged QT Abnormal ECG Confirmed by SALLY CARSON, CHACE ([id number]), fan mail editor ABIMAEL CLARK ([id number]) on 02/04/2018 3:42:26 PM Referred By: MARY Confirmed By:CHACE ZAVALA MD 02/04/18 9252 Date Chace Zavala MD CC: No Primary Care Physician; Carlos Ceelstin MD Signed DISCHARGE INSTRUCTION Observed: 01/31/2018 Status: F Source: MEGA 4:17 PM [facility] REPOSITORY [facility] Medical Records Department [address] [place] [address] Discharge Instruction 01/31/18 1410 MR#: [id number] Acct: [id number] Name: ROBYN FIELDS Rep #: [id number] : 1960 57 From: Yunior Glass MD PCP: Care Physician, No Primary Status: DEP ER ED Disposition - Plan for ED Patient: Disposition: Home or Assisted Living Chief Complaint: Suicidal Instructions: ED Depression, ED Alcohol Intoxication Referrals: Counseling,Center [GROUP OF PHYSICIANS] - As soon as possible Additional Instructions: Follow-up with a counseling center. Follow-up with alcohol counseling in your area. What to do if you have Problems For any increased pain, shortness of breath, bleeding, nausea or vomiting, chest pain, or any unexpected problems, contact your Primary Care Provider. Call [facility] ([phone]) or report to the closest Emergency Room. Call 911 if necessary. 01/31/18 1617 <Electronically signed by Yunior Glass MD> Date Yunior Glass MD Cosigner Signature (If Indicated): Date CC: No Primary Care Physician EMERGENCY DEPARTMENT Observed: 01/31/2018 Status: C Source: MEGA SUMMARY 2:09 PM [facility] REPOSITORY [facility] Medical Records Department [address] [place] [address] Emergency Department Summary 01/31/18 0316 MR#: [id number] Acct: [id number] Name: ROBYN FIELDS Rep #: [id number] : 1960 57 From: Carlos Celestin MD PCP: Care Physician, No Primary Status: REG ER ADDENDUM by Yunior Glass MD on 01/31/18 at 1409 Patient doing well on repeat exam at 1408. I discussed her case with Jasper Daivs from [facility]. He is current with her being discharged home. She will follow-up with services near her home. And also for alcohol counseling. I discussed this with the patient and she is comfortable being discharged. Date Yunior Glass MD cc: No Primary Care Physician * Addendum - ER Visit Summary Date of Service: 01/31/18 Chief Complaint: Suicidal ideation History of Present Illness: The patient is a 57 F who presents stating that she does not want to live anymore. No suicidal plan. She states her brother killed himself earlier this year in October via a gunshot wound. No recent medical illness such as fever chest pain shortness of breath vomiting diarrhea. She is intoxicated on alcohol. Physical Examination: Heart rate 110 vitals otherwise unremarkable Patient tearful and admits to suicidal thoughts and not wanting to live Heart regular rhythm tachycardia Lungs are clear Abdomen soft Alert Test Results: EKG shows normal sinus rhythm at a rate of 94. Labs essentially unremarkable except alcohol 321. Urine drug screen pending. Emergency Department Course and Treatment: Patient was given Ativan here. Laboratory workup as above. Urine drug screen pending. Patient will be evaluated by crisis this morning once clinically sober for final disposition. Treatment Plan: [] Disposition: Pending crisis evaluation Impression: Suicidal ideation Depression This note was generated with [employer] dictation software. It may contain incorrect words, spelling, and punctuation that were not noted in review of the chart prior to signing ED Disposition - Plan for ED Patient: Chief Complaint: Suicidal Referrals: Care Physician,No Primary [Primary Care Provider] - What to do if you have Problems For any increased pain, shortness of breath, bleeding, nausea or vomiting, chest pain, or any unexpected problems, contact your Primary Care Provider. Call [facility] ([phone]) or report to the closest Emergency Room. Call 911 if necessary. 01/31/18 0318 <Electronically signed by Carlos Celestin MD> Date Carlos Celestin MD Cosigner Signature (If Indicated): Date CC: No Primary Care Physician URINE DRUG SCREEN Collected: 01/31/2018 Status: F Source: MEGA (PRAVIN) 4:10 AM [facility] REPOSITORY TYPE CODE TESTS RESULT OUT OF RANGE REFERENCE UNITS LAB L505.0075 TO BE Normal CONFIRMED Result Comment: CONFIRMATORY TESTING FOR ALL POSITIVE URINE DRUG SCREEN RESULTS WILL ONLY BE SENT OUT UPON PHYSICIAN ORDER. VISTA Urine Drug Screen methods provide only preliminary analytical test results. A more specific alternate chemical method must be used in order to obtain a confirmed analytical result. Gas chromatography/mass spectrometery (GC/MS) is the preferred confirmatory method. Clinical consideration and professional judgement should be applied to any drug of abuse test result, particularly when preliminary positive results are used. URINE TCA TESTING MUST BE ORDERED SEPARATELY. USE TEST MNEMONIC: UTCA LAB L505.5005 VISTA UDS PH 5 Normal LAB L505.5015 <1000 ng/mL AMPHETAMINES Normal NEGATIVE LAB L505.5025 < 200 ng/mL BARBITIURATES Normal NEGATIVE LAB L505.5035 < 200 ng/mL BENZODIAZIPINE Normal NEGATIVE LAB L505.5045 < 300 ng/mL COCAINE Normal NEGATIVE LAB L505.5055 < 500 ng/mL ECSTACY Normal NEGATIVE LAB L505.5065 < 300 ng/mL METHADONE Normal NEGATIVE LAB L505.5075 < 300 ng/mL OPIATES Normal NEGATIVE LAB L505.5085 < 25 ng/mL PCP Normal NEGATIVE LAB L505.5095 < 50 ng/mL THC Normal NEGATIVE Performed By: #### L505.5000 #### [facility] [address] [place], [address] CBC W/DIFF, AUTOMATED Collected: 01/30/2018 Status: F Source: ENOLA 11:30 PM [facility] REPOSITORY TYPE CODE TESTS RESULT OUT OF RANGE REFERENCE UNITS LAB L100.1000 4.4-11.0 K/mm3 Normal WBC 7.1 LAB L100.1200 4.2-5.4 M/mm3 Normal RBC 4.72 LAB L100.1300 12.0-15.0 g/dl Normal HGB 12.2 LAB L100.1400 37-47 % Normal HCT 39.6 LAB L100.1500 81-99 fL Normal MCV 83.9 LAB L100.1600 27.0-32.0 pg Low MCH 25.8 LAB L100.1700 32-36 g/gl Low MCHC 30.8 LAB L100.1810 11.6-14.6 % High RDW CV 17.0 LAB L100.1820 35.1-43.9 fl High RDW SD 51.9 LAB L100.1900 150-450 K/mm3 Normal PLT 297 LAB L100.2000 6.2-12.0 fl Normal MPV 9.1 LAB L100.2100 47-70 % Low NEUT% 43.6 LAB L100.2200 19-41 % High LY% 43.6 LAB L100.2300 0-10 % Normal MONO% 7.4 LAB L100.2400 0-5 % Normal EO% 3.1 LAB L100.2500 0-1 % High BASO% 1.6 LAB L100.2550 0.0-0.9 % Normal IM GRAN % 0.700 Result Comment: IG% - Immature Granulocytes (promyelocytes, myelocytes and metamyelocytes) > 1% indicates that a LEFT SHIFT is Present. LAB L100.2620 2.0-7.7 X10 3/uL Normal Absolute Neut 3.1 LAB L100.2720 0.83-4.51 X10 3/ul Normal Absolute Lymph 3.08 Performed By: #### L100.0100 #### [facility] [place], [address] COMPREHENSIVE METABOLIC Collected: 01/30/2018 Status: F [facility] REPOSITORY TYPE CODE TESTS RESULT OUT OF RANGE REFERENCE UNITS LAB L501.0100 74-106 mg/dL High GLU 114 Result Comment: Fasting Glucose result from 100 to 125 mg/dL suggests IMPAIRED HOMEOSTASIS per A.D.A. criteria. Please note revised GLUCOSE reference range effective 2017. LAB L501.1000 7-18 mg/dL High BUN 19 LAB L501.1100 0.55-1.02 mg/dL Normal CREAT,SERUM 0.76 Result Comment: The validity of the calculated GFR AND GFRAA in patients over 70 years has not been determined. Clinical correlation is essential. LAB L501.1110 >60 mL/min Normal EST GFR 84 Result Comment: Non- GFR Calc LAB L501.1115 >60 mL/min Normal EST GFR - AA 101 Result Comment: GFR Calc LAB L501.1255 ml/min Normal Estimated CRCL 63.82 LAB L501.1300 10-20 RATIO High BUN/CRE 25.2 LAB L501.1500 6.4-8. g/dL High 2 T PROT 8.3 LAB L501.1800 3.2-5. g/dL Normal 0 ALB 3.8 LAB L501.1950 2.2-4. g/dL High 2 GLOB 4.5 LAB L501.2000 0.9-2. RATIO Low 4 A/G 0.8 LAB L501.2200 8.5-10 mg/dL Normal .1 CA 8.6 LAB L501.4100 15-37 U/L Normal AST 24 LAB L501.4305 45-117 U/L High ALK P 121 LAB L501.4405 13-56 U/L Normal ALT 25 LAB L501.4600 0.20-1 mg/dL Normal .00 T BILI 0.20 LAB L501.5300 136-14 mmol/L Normal 5 NA 143 LAB L501.5600 3.5-5. mmol/L Normal 1 K 3.6 LAB L501.5900 98-107 mmol/L High CL 109 LAB L501.6100 21.0-3 mmol/L Normal 2.0 CO2 24.0 LAB L501.6200 5-15 Normal GAP 10 Performed By: #### L500.4050 #### [facility] [place], [address] ALCOHOL, BLOOD Collected: 01/30/2018 Status: F Source: ENOLA (MEDICAL)-SERUM 11:30 PM [facility] REPOSITORY TYPE CODE TESTS RESULT OUT OF RANGE REFERENCE UNITS LAB L501.9100 mg/dL High alert SERUM 321.0 ETOH Result Comment: Critical Result(s) Called at: 00:22:22 01/31/2018 by: RUTHIE espinoza in ed The serum:whole blood ethanol ratio is approximately 1.14 and varies slightly with hematocrit. Medical Alcohol reference interval and critical value in non-tolerant individuals; 50 - 100 Impairment 100 Intoxication 100 - 250 Severe Poisoning 250 - 400 Deep/possible fatal coma Performed By: #### L501.9100 #### [facility] [address] [place], [address] FECAL OCCULT,STOOL Collected: 01/06/2018 Status: F Source: [facility] SINGLE SPEC 11:09 AM SYSTEM REPOSITORY TYPE CODE TESTS RESULT OUT OF REFERENCE UNITS RANGE LAB FOCC Negative NA Fecal POSITIVE Occult,Stool Single Spec Performed By: #### FOCC #### [facility] [address] [place] [address] HEMOGRAM W/ AUTODIFF Collected: 01/06/2018 Status: F Source: [facility] 11:09 AM SYSTEM REPOSITORY TYPE CODE TESTS RESULT OUT OF REFERENCE UNITS RANGE LAB IWBC 3.6-10.7 10*3/uL WBC Normal 5.8 LAB RBC 3.80-5.20 10*6/uL Low RBC 3.75 LAB HGB 11.7-16.0 g/dL Low Hemoglobin 10.1 LAB HCT 35.0-47.0 % Low Hematocrit 30.8 LAB MCV 79.0-98.0 fL MCV Normal 82.1 LAB MCH 26.0-34.0 pg MCH Normal 27.0 LAB MCHC 32.0-36.0 % MCHC Normal 32.9 LAB RDW 11.5-14.5 % RDW High 18.1 LAB PLT 140-440 10*3/uL Platelet Normal 213 LAB MPV 7.4-10.4 fL MPV Normal 8.1 LAB GRAN% 40.0-80.0 % Granulocytes Normal 66.4 LAB LYMP% 20.0-40.0 % Lymphocytes Normal 21.3 LAB MONO% 2.0-10.0 % Monocytes Normal 8.0 LAB EOS% 1.0-6.0 % Eosinophils Normal 3.6 LAB BAS% 0.0-2.0 % Basophils Normal 0.7 LAB ANC 1.8-7.0 10*3/uL Abs Normal Neutrophile Cnt 3.8 LAB ALC 1.0-4.3 10*3/uL Abs Lymph Cnt Normal 1.2 LAB AMC 0.0-0.8 10*3/uL Abs Monocyte Normal Cnt 0.5 LAB AEC 0.0-0.5 10*3/uL Abs Eosin Cnt Normal 0.2 LAB ABC 0.0-0.2 10*3/uL Abs Baso Cnt Normal 0.0 Performed By: #### TIESHA BMP3 #### [facility] [address] [place] [address] BASIC METABOLIC PANEL Collected: 01/06/2018 Status: F Source: [facility] 11:09 AM SYSTEM REPOSITORY TYPE CODE TESTS RESULT OUT OF RANGE REFERENCE UNITS LAB NA3 137-145 mmol/L Sodium Normal 140 LAB K3 3.5-5.1 mmol/L Normal Potassium 4.2 LAB CL3 98-107 mmol/L High Chloride 108 LAB CO23 22-30 mmol/L Carbon Normal Dioxide 26 LAB ANIN3 NA Anion Gap 6 LAB GLUC3 70-100 mg/dL High Glucose 102 LAB BUN3 7-20 mg/dL Urea Normal Nitrogen 15 LAB CRET3 0.52-1.25 mg/dL Normal Creatinine 0.85 LAB GF3BR >60 mL/min eGFR > 60.0 LAB GF3WR >60 mL/min eGFR OTHER > 60.0 Result Comment: Source- MDRD equation with creatinine calibration to IDMS(NKDEP) eGFR not recommended for drug dose adjustment LAB CA3 8.4-10.4 mg/dL Normal Calcium 8.9 Performed By: #### HEMSTEFFANIE, BMP3 #### [facility] [address] [place] [address] ED PROVIDER NOTE Observed: 01/06/2018 Status: F Source: [facility] 10:01 AM SYSTEM REPOSITORY [facility] ED eMERGENCY dEPARTMENT eNCOUnter Pt Name: Robyn Fields Birthdate 1960 Date of evaluation: 01/06/2018 Provider: Hugo Kothari APRN [facility] Patient seen in conjunction with Dr. Brito CHIEF COMPLAINT Chief Complaint Patient presents with ? Rectal Bleeding HISTORY OF PRESENT ILLNESS (Location/Symptom, Timing/Onset,Context/Setting, Quality, Duration, Modifying Factors, Severity) Note limiting factors. NATASHA Fields is a 57 y.o. female who presents to the emergency department With complaints of rectal bleeding. Patient states she had rectal bleeding that started this morning. She states it was blood streaked stool. She denies any constipation, diarrhea, abdominal pain, vomiting, fevers or chills. She was seen here for back pain and excessive acetaminophen use last week by myself. She was found to have a new compression fracture to the thoracic region. She still having some pain in the back but that is at her baseline. She has been taking acetaminophen, hydrocodone and Flexeril. She denies any NSAID use. She does take an aspirin daily. She has never had a colonoscopy. Nursing Notes were reviewed. REVIEW OFSYSTEMS (2+ for level 4; 10+ for level 5) Review of Systems Constitutional: Negative for chills, fatigue and fever. Respiratory: Negative for shortness of breath. Cardiovascular: Negative for chest pain. Gastrointestinal: Positive for blood in stool. Negative for abdominal pain, anal bleeding, constipation, diarrhea, nausea and vomiting. Musculoskeletal: Positive for back pain. Skin: Negative for color change and pallor. Neurological: Negative for dizziness, weakness and light-headedness. Hematological: Does not bruise/bleed easily. Psychiatric/Behavioral: Negative for confusion. PAST MEDICAL HISTORY Past Medical History: Diagnosis Date ? Anxiety ? Depression ? Hypertension ? Psoriasis ? Substance abuse (HCC) SURGICAL HISTORY Past Surgical History: Procedure Laterality Date ? CARDIAC CATHETERIZATION stent placement ? SECTION ? FRACTURE SURGERY right arm ? HYSTERECTOMY precancerous cells ? UPPER GASTROINTESTINAL ENDOSCOPY 12/27/2017 [facility] CURRENT MEDICATIONS Previous Medications ASPIRIN 81 MG CHEWABLE TABLET Take 1 tablet by mouth daily ATORVASTATIN (LIPITOR) 80 MG TABLET Take 1 tablet by mouth nightly CYCLOBENZAPRINE (FLEXERIL) 10 MG TABLET Take 1 tablet by mouth 3 times daily as needed for Muscle spasms DEXTROMETHORPHAN-GUAIFENESIN 20-400 MG TABS Take 1 tablet by mouth every 4 hours as needed (cough) FLUOXETINE (PROZAC) 40 MG CAPSULE TAKE ONE CAPSULE BY MOUTH EVERY DAY FLUTICASONE (FLONASE) 50 MCG/ACT NASAL SPRAY 1 spray by Nasal route daily HYDROCODONE-ACETAMINOPHEN (NORCO) 5-325 MG PER TABLET Take 1 tablet by mouth every 8 hours as needed for Pain for up to 7 days.. LIDOCAINE (LIDODERM) 5 % Place 1 patch onto the skin daily 12 hours on, 12 hours off. LISINOPRIL (PRINIVIL;ZESTRIL) 10 MG TABLET Take 10 mg by mouth daily LORATADINE (CLARITIN) 10 MG TABLET Take 1 tablet by mouth daily NICOTINE (NICODERM CQ) 14 MG/24HR Place 1 patch onto the skin every 24 hours NICOTINE POLACRILEX (NICOTINE MINI) 2 MG LOZENGE Take 1 lozenge by mouth as needed for Smoking cessation NITROGLYCERIN (NITROSTAT) 0.4 MG SL TABLET up to max of 3 total doses. If no relief after 3 dose, call 911. PANTOPRAZOLE (PROTONIX) 20 MG TABLET Take 2 tablets by mouth daily ALLERGIES Bactrim [sulfamethoxazole-trimethoprim] FAMILY HISTORY Family History Problem Relation Age of Onset ? Cancer Mother 72 breast ? High Blood Pressure Mother ? Heart Disease Father 56 at age 72 ? Depression Father ? High Blood Pressure Father ? Hearing Loss Father ? Heart Disease Brother 43 PCI ? Cancer Maternal Aunt lung ? Cancer Paternal Aunt 53 breast ? Heart Disease Paternal Grandmother 60 age 72 ? Depression Maternal Grandmother ? Heart Disease Maternal Grandfather ? High Blood Pressure Paternal Grandfather ? Substance Abuse Paternal Cousin ? Heart Disease Brother SOCIAL HISTORY Social History Social History ? Marital status: Spouse name: N/A ? Number of children: N/A ? Years of education: N/A Social History Main Topics ? Smoking status: Current Every Day Smoker Packs/day: 0.25 Years: 30.00 Start date: 10/10/1974 ? Smokeless tobacco: Never Used Comment: down to 1/2 eveline daily ? 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 Drug use: No ? Sexual activity: Not Asked Other Topics Concern ? None Social History Narrative ? None SCREENINGS PHYSICAL EXAM (up to 7 for level 4, 8 or more for level 5) ED Triage Vitals BP Temp Temp Source Pulse Resp SpO2 Height Weight 01/06/18 1005 01/06/18 1005 01/06/18 1005 01/06/18 1005 01/06/18 1005 01/06/18 1005 01/06/18 1006 01/06/18 1005 (!) 136/94 97.7 ?F (36.5 ?C) Temporal 101 16 96 % 5' 2 (1.575 m) 159 lb (72.1 kg) Physical Exam Constitutional: She is oriented to person, place, and time. She appears well-developed and well-nourished. Non-toxic appearance. No distress. HENT: Head: Normocephalic and atraumatic. Eyes: Conjunctivae are normal. Right eye exhibits no discharge. Left eye exhibits no discharge. Neck: Normal range of motion. Neck supple. Cardiovascular: Normal rate and intact distal pulses. Pulmonary/Chest: Effort normal and breath sounds normal. No respiratory distress. Abdominal: Soft. Bowel sounds are normal. She exhibits no distension and no mass. There is no tenderness. There is no rebound and no guarding. No hernia. Genitourinary: Rectal exam shows external hemorrhoid. Rectal exam shows no internal hemorrhoid, no fissure, no tenderness and anal tone normal. Genitourinary Comments: Rectal exam performed with female RN management psychologist at bedside, gail Musculoskeletal: Normal range of motion. She exhibits no deformity. Neurological: She is alert and oriented to person, place, and time. GCS eye subscore is 4. GCS verbal subscore is 5. GCS motor subscore is 6. Skin: Skin is warm and dry. Capillary refill takes less than 2 seconds. She is not diaphoretic. Psychiatric: She has a normal mood and affect. Her behavior is normal. Judgment and thought content normal. Nursing note and vitals reviewed. DIAGNOSTIC RESULTS EKG (Per Emergency Physician): RADIOLOGY (Per Emergency Physician): Interpretation per the Radiologist below, if available at the time ofthis note: No results found. ED BEDSIDE ULTRASOUND: Performed by ED Physician - none LABS: Labs Reviewed CBC WITH AUTO DIFFERENTIAL - Abnormal; Notable for the following: Result Value RBC 3.75 (*) Hemoglobin 10.1 (*) Hematocrit 30.8 (*) RDW 18.1 (*) All other components within normal limits Narrative: Test Performed by [facility] [employer] [facility], [address] [place], [place] [address] BASIC METABOLIC PANEL - Abnormal; Notable for the following: Chloride 108 (*) Glucose 102 (*) All other components within normal limits Narrative: Test Performed by [facility], [address] [place], [place] [address] BLOOD OCCULT STOOL SCREEN #1 Narrative: Test Performed by [facility], [address] [place], [place] [address] All other labs were within normal range or not returned as of this dictation. EMERGENCY DEPARTMENT COURSE and DIFFERENTIAL DIAGNOSIS/MDM: Vitals: Vitals: 01/06/18 1005 01/06/18 1006 01/06/18 1223 BP: (!) 136/94 (!) 155/79 Pulse: 101 89 Resp: Temp: 97.7 ?F (36.5 ?C) TempSrc: Temporal SpO2: 96% 99% Weight: 72.1 kg (159 lb) 72.1 kg (159 lb) Height: 5' 2 (1.575 m) Medications sodium chloride flush 0.9 % injection 3 mL (3 mLs Intravenous Given 01/06/18 1119) 0.9 % sodium chloride bolus (1,000 mLs Intravenous New Bag 01/06/18 1119) pantoprazole (PROTONIX) injection 80 mg (not administered) MDM. Patient is a 49-year-old female here with complaints of rectal bleeding. This started today. She does have a history of anemia, required a blood transfusion about 10 days ago in the hospital at endoscopy done but never had a colonoscopy. He did recommend observation hospital for repeat H&H, GI consult but she declined, stating she cannot stay in the hospital due to her work schedule. Give her 80 mg Protonix here, he is advised to continue taking her Protonix at home. She will follow up with Dr. 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 She is advised to return here with any worsening symptoms, worsening bleeding. She is agreeable to this plan. REVAL: 1250: Spoke with Dr. Bashir of the [facility] service, I advised the patient's presenting symptoms and clinical findings. We recommended observation the patient declined, patient will contact her to arrange outpatient follow-up as well as GI. CRITICAL CARE TIME Total Critical Care time was 0 minutes, excluding separately reportable procedures. There was a high probability of clinically significant/life threatening deteriorationin the patient's condition which required my urgent intervention. CONSULTS: None PROCEDURES: Unless otherwise noted below, none Procedures FINAL IMPRESSION 1. Rectal bleeding 2. Anemia, unspecified type DISPOSITION/PLAN DISPOSITION Decision To Discharge 01/06/2018 12:38:35 PM PATIENT REFERRED TO: Sonya Vides MD [address] [place] [id number] Call in 1 day DISCHARGE MEDICATIONS: New Prescriptions No medications on file (Please note: Portions of this note were completed with a voice recognition program. Efforts were made to edit the dictations but occasionally words and phrases are mis-transcribed.) Form [id number] Hugo Kothari APRN - LANODN (electronically signed) Emergency Medicine Provider CHETNA Somers CNP 01/06/18 1241 CHETNA Somers CNP 01/06/18 1253 ED PROVIDER NOTE Observed: 01/06/2018 Status: F Source: [facility] 10:01 AM SYSTEM REPOSITORY Emergency Department Encounter [facility] ED Patient: Robyn Fields : 1960 Date of Evaluation: 01/06/2018 ED Supervising Physician: Jadiel Brito DO I independently examined and evaluated Robyn Fields. In brief, Robyn Fields is a 57 y.o. female that presents with rectal bleeding. Started this morning. Denies abdominal pain. She denies nonsteroidal anti-inflammatory drugs. She does take daily aspirin. Has never had a colonoscopy. She has previously recently had blood transfusion for acute anemia and was told it was chronic anemia at that time. Focused exam: Nontoxic appearing, abdomen soft nontender, initial vitals tachycardic Brief ED course/MDM: Patient presented with less than 1 day of rectal bleeding. She is Hemoccult positive, she is only taking aspirin. Concern is the fact she is just recently had blood transfusion for suspected chronic anemia, she has never had a colonoscopy, she is on antiplatelet and is slightly tachycardic labs show hemoglobin 10.1 which is down more than 1 g from just 5 days ago, she just required blood transfusion for hemoglobin of 6 on December 27. I concern is that she may have a underlying gastrointestinal bleed that may have contributed to her previous unstable anemia. She is on antiplatelet, she has dropped her hemoglobin more than 1 g since the and is slightly tachycardic although she is very well-appearing overall. I do believe admission for further management is appropriate, she is given a bolus dose of Protonix. Reevaluation no longer tachycardic, admitted at this time All diagnostic, treatment, and disposition decisions were made by myself in conjunction with the SURAJ/Resident. For all further details of the patient's emergency department visit, please see their documentation. (Please note that portions of this note may have been completed with a voice recognition program. Efforts were made to edit the dictations but occasionally words are mis-transcribed.) Jadiel Brito, DO [employer] Jadiel Brito DO 01/06/182127 URINALYSIS,MACRO Collected: 12/31/2017 Status: F Source: [facility] 4:34 PM SYSTEM REPOSITORY TYPE CODE TESTS RESULT OUT OF REFERENCE UNITS RANGE LAB APPUR Clear NA Appearance CLEAR LAB COLUR Lt. Yellow NA Color YELLOW LAB USG 1.005-1.030 NA Specific Normal [place],Urine 1.014 LAB UPH 5.0-8.0 NA pH,Urine Normal 6.5 LAB ULUK Negative NA Leukocytes NEG LAB UNIT Negative NA Nitrites NEG LAB UPRO Negative mg/dL Total Protein,Urine NEG LAB UGLU Negative mg/dL Glucose,Urine NEG LAB UKET Negative mg/dL Ketone,Urine NEG LAB UURO 0-1 mg/dL Urobilinogen 0.2 LAB UBIL Negative NA Bilirubin,Ur NEG LAB UBLD Negative {RBC}/uL Occult Blood,Ur NEG Performed By: #### UAMAC #### [facility] [address] [place] [address] CR SPINE LUMBOSACRAL 2 Observed: 12/31/2017 Status: F Source: [facility] OR 3 VIEWS 4:19 PM SYSTEM REPOSITORY Patient Name: ROBYN FIELDS Diagnostic Radiology Exam Date/Time 12/31/2017 15:41:59 EDT Exam CR Spine Lumbosacral 2 or 3 Views Ordering Physician JULISSA KOTHARI RYAN Accession Number [id number] CPT4 Codes 94555 () Reason For Exam pain Report EXAMINATION: Lumbar spine CLINICAL INDICATION: Low back pain COMPARISON: None TECHNIQUE: Three views of the lumbar spine FINDINGS: AP, lateral, and cone-down lateral views of the lumbosacral spine were provided. There are 5 normal lumbar type vertebra. The lumbar spine is in normal anatomic alignment. There is no evidence of loss of the body height. Mild multilevel degenerative changes are present. This includes facet arthropathy at L4-5 and L5-S1. Mild intervertebral disc space narrowing at L5-S1. The sacroiliac joints are intact without evidence of erosion or widening. Note is made of atheromatous vascular calcifications. IMPRESSION: 1.\X09\No radiographic evidence of acute abnormality of lumbar spine. 2.\X09\Mild multilevel degenerative changes. Report Dictated on Final Dictating Physician: MD NASCIMENTO JASON Signed Date and Time: 12/31/2017 4:20 pm Signed by: MD NASCIMENTO JASON Transcribed Date and Time: 12/31/2017 4:21 CR SPINE THORACIC 3 Observed: 12/31/2017 Status: F Source: [facility] 4:00 PM SYSTEM REPOSITORY Patient Name: ROBYN FIELDS Diagnostic Radiology Exam Date/Time 12/31/2017 15:41:59 EDT Exam CR Spine Thoracic 3 Views Ordering Physician JULISSA KOTHARI RYAN Accession Number [id number] CPT4 Codes 14798 () Reason For Exam thoracic pain Report Thoracic spine: 12/31/2017. Clinical Information: Pain Findings: AP, swimmer's and lateral views of the thoracic spine were compared to a lateral chest x-ray 11/27/2017. There is now loss of height of a lower dorsal vertebral body new from the prior study. The heights of the thoracic vertebral bodies and intervertebral disc spaces are otherwise maintained. No paraspinal soft tissue masses are seen. IMPRESSION: New compression deformity as described above. Report Dictated on Workstation: [id number]-[id number] Final Dictating Physician: MD THURMAN RISA Signed Date and Time: 12/31/2017 4:02 pm Signed by: MD THURMAN RISA Transcribed Date and Time: 12/31/2017 4:03 HEMOGRAM W/ AUTODIFF Collected: 12/31/2017 Status: F Source: [facility] 3:45 PM SYSTEM REPOSITORY TYPE CODE TESTS RESULT OUT OF REFERENCE UNITS RANGE LAB IWBC 3.6-10.7 10*3/uL WBC Normal 7.8 LAB RBC 3.80-5.20 10*6/uL RBC Normal 4.01 LAB HGB 11.7-16.0 g/dL Low Hemoglobin 11.3 LAB HCT 35.0-47.0 % Low Hematocrit 33.5 LAB MCV 79.0-98.0 fL MCV Normal 83.4 LAB MCH 26.0-34.0 pg MCH Normal 28.2 LAB MCHC 32.0-36.0 % MCHC Normal 33.8 LAB RDW 11.5-14.5 % RDW High 18.4 LAB PLT 140-440 10*3/uL Platelet Normal 381 LAB MPV 7.4-10.4 fL MPV Normal 7.9 LAB GRAN% 40.0-80.0 % Granulocytes Normal 60.7 LAB LYMP% 20.0-40.0 % Lymphocytes Normal 28.5 LAB MONO% 2.0-10.0 % Monocytes Normal 6.3 LAB EOS% 1.0-6.0 % Eosinophils Normal 3.7 LAB BAS% 0.0-2.0 % Basophils Normal 0.8 LAB ANC 1.8-7.0 10*3/uL Abs Normal Neutrophile Cnt 4.7 LAB ALC 1.0-4.3 10*3/uL Abs Lymph Cnt Normal 2.2 LAB AMC 0.0-0.8 10*3/uL Abs Monocyte Normal Cnt 0.5 LAB AEC 0.0-0.5 10*3/uL Abs Eosin Cnt Normal 0.3 LAB ABC 0.0-0.2 10*3/uL Abs Baso Cnt Normal 0.1 Performed By: #### HEMDF, ACET4, CMP3 #### [facility] [address] [place] [address] ACETAMINOPHEN Collected: 12/31/2017 Status: F Source: [facility] 3:45 PM SYSTEM REPOSITORY TYPE CODE TESTS RESULT OUT OF REFERENCE UNITS RANGE LAB ACET3 10.0-30.0 ug/mL Acetaminophen Normal < 10.0 Performed By: #### HEMDF, ACET4, CMP3 #### [facility] [address] [place] [address] COMP METABOLIC PANEL Collected: 12/31/2017 Status: F Source: [facility] 3:45 PM SYSTEM REPOSITORY TYPE CODE TESTS RESULT OUT OF RANGE REFERENCE UNITS LAB NA3 137-145 mmol/L Sodium Normal 137 LAB K3 3.5-5.1 mmol/L Normal Potassium 4.5 LAB CL3 98-107 mmol/L Chloride Normal 104 LAB CO23 22-30 mmol/L Carbon Normal Dioxide 26 LAB ANIN3 NA Anion Gap 7 LAB GLUC3 70-100 mg/dL Glucose Normal 87 LAB BUN3 7-20 mg/dL Urea Normal Nitrogen 11 LAB CRET3 0.52-1.25 mg/dL Normal Creatinine 0.56 LAB GF3BR >60 mL/min eGFR > 60.0 LAB GF3WR >60 mL/min eGFR OTHER > 60.0 Result Comment: Source- MDRD equation with creatinine calibration to IDMS(NKDEP) eGFR not recommended for drug dose adjustment LAB CA3 8.4-10.4 mg/dL Calcium Normal 9.1 LAB ALB3 3.5-5.0 g/dL Albumin, Serum Normal 4.5 LAB TP3 6.3-8.2 g/dL High Total Protein 8.3 LAB BILT3 0.2-1.3 mg/dL Normal Bilirubin,Total 0.8 LAB ALKP3 38-126 U/L Alkaline Normal Phosphatase 102 LAB ALT3 13-69 U/L ALT (SGPT) Normal 31 LAB AST3 15-46 U/L AST (SGOT) Normal 29 Performed By: #### HEMDF, ACET4, CMP3 #### [facility] [address] [place] [address] ED PROVIDER NOTE Observed: 12/31/2017 Status: F Source: [facility] 2:57 PM SYSTEM REPOSITORY Attestation signed by Kamilah Smith MD at 12/31/2017 9:53 PM I was not consulted regarding the management and/or disposition of this patient. My signature serves to simply satisfy an administrative requirement. [facility]ACHEL ED eMERGENCY dEPARTMENT eNCOUnter Pt Name: Robyn Fields Birthdate 1960 Date of evaluation: 12/31/2017 Provider: Hugo Kothari APRN - [place] I have evaluated this patient on my own, per my scope of practice with attending phjysician available for consultation CHIEF COMPLAINT Chief Complaint Patient presents with ? Back Pain ? Other HISTORY OF PRESENT ILLNESS (Location/Symptom, Timing/Onset,Context/Setting, Quality, Duration, Modifying Factors, Severity) Note limiting factors. HPI Robyn Fields is a 57 y.o. female who presents to the emergency department Complaining of mid back pain. Patient was sent to the ED as referral from the primary care provider. She saw Dr. Montano and SAY if this mid and lower back pain that has been present for the past 2 weeks. She tells me that the pain started after having a coughing spell, she states she feels like she pulled a muscle. She has been taking acetaminophen daily 4. She states initially his hematocrit was helping her now does not. She has been taking more more each day. PCP was concerned about possible acetaminophen toxicity, he estimates that she has been taking proximally 10 g a day. The patient tells me that she takes about 2 g every 4-6 hours. She still complains of a 9/10 pain. Pain is aggravated by bending, twisting or moving. She initially did have a cough, just finishing her buttocks and feels improved. She denies any fevers, chills, saddle anesthesias, incontinence or retention of urine or stool, difficulty ambulating, flank pain, abdominal pain, urinary changes, nausea, vomiting, constipation or diarrhea. Nursing Notes were reviewed. REVIEW OFSYSTEMS (2+ for level 4; 10+ for level 5) Review of Systems Constitutional: Negative for chills, fatigue and fever. HENT: Negative for congestion and sore throat. Eyes: Negative for redness. Respiratory: Negative for cough and shortness of breath. Cardiovascular: Negative for chest pain. Gastrointestinal: Negative for abdominal pain, nausea and vomiting. Genitourinary: Negative for dysuria, flank pain, hematuria and urgency. Musculoskeletal: Positive for back pain. Negative for arthralgias and myalgias. Skin: Negative for rash. Allergic/Immunologic: Negative for environmental allergies. Neurological: Negative for weakness. Psychiatric/Behavioral: Negative for hallucinations. PAST MEDICAL HISTORY Past Medical History: Diagnosis Date ? Anxiety ? Depression ? Hypertension ? Psoriasis ? Substance abuse (HCC) SURGICAL HISTORY Past Surgical History: Procedure Laterality Date ? CARDIAC CATHETERIZATION stent placement ? SECTION ? FRACTURE SURGERY right arm ? HYSTERECTOMY precancerous cells ? UPPER GASTROINTESTINAL ENDOSCOPY 12/27/2017 Dr Addie Rich [facility] CURRENT MEDICATIONS Discharge Medication List as of 12/31/2017 4:50 PM CONTINUE these medications which have NOT CHANGED Details pantoprazole (PROTONIX) 20 MG tablet Take 2 tablets by mouth daily, Disp-30 tablet, R-0Normal lisinopril (PRINIVIL;ZESTRIL) 10 MG tablet Take 10 mg by mouth dailyHistorical Med fluticasone (FLONASE) 50 MCG/ACT nasal spray 1 spray by Nasal route daily, Disp-1 Bottle, R-3Normal loratadine (CLARITIN) 10 MG tablet Take 1 tablet by mouth daily, Disp-30 tablet, R-0Normal dextromethorphan-guaiFENesin 20-400 MG TABS Take 1 tablet by mouth every 4 hours as needed (cough), Disp-60 tablet, R-0Normal atorvastatin (LIPITOR) 80 MG tablet Take 1 tablet by mouth nightly, Disp-30 tablet, R-3Normal FLUoxetine (PROZAC) 40 MG capsule TAKE ONE CAPSULE BY MOUTH EVERY DAY, Disp-30 capsule, R-0Normal nicotine (NICODERM CQ) 14 MG/24HR Place 1 patch onto the skin every 24 hours, Disp-42 patch, R-0Normal nicotine polacrilex (NICOTINE MINI) 2 MG lozenge Take 1 lozenge by mouth as needed for Smoking cessation, Disp-100 each, R-1Normal aspirin 81 MG chewable tablet Take 1 tablet by mouth daily, Disp-30 tablet, R-3Normal nitroGLYCERIN (NITROSTAT) 0.4 MG SL tablet up to max of 3 total doses. If no relief after 3 dose, call 911., Disp-25 tablet, R-3Normal ALLERGIES Bactrim [sulfamethoxazole-trimethoprim] FAMILY HISTORY Family History Problem Relation Age of Onset ? Cancer Mother 72 breast ? High Blood Pressure Mother ? Heart Disease Father 56 at age 72 ? Depression Father ? High Blood Pressure Father ? Hearing Loss Father ? Heart Disease Brother 43 PCI ? Cancer Maternal Aunt lung ? Cancer Paternal Aunt 53 breast ? Heart Disease Paternal Grandmother 60 age 72 ? Depression Maternal Grandmother ? Heart Disease Maternal Grandfather ? High Blood Pressure Paternal Grandfather ? Substance Abuse Paternal Cousin ? Heart Disease Brother SOCIAL HISTORY Social History Social History ? Marital status: Spouse name: N/A ? Number of children: N/A ? Years of education: N/A Social History Main Topics ? Smoking status: Current Every Day Smoker Packs/day: 0.25 Years: 30.00 Start date: 10/10/1974 ? Smokeless tobacco: Never Used Comment: down to 1/2 eveline daily ? 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 Drug use: No ? Sexual activity: Not Asked Other Topics Concern ? None Social History Narrative ? None SCREENINGS Nirav Coma Scale Eye Opening: Spontaneous Best Verbal Response: Oriented Best Motor Response: Obeys commands [place] Coma Scale Score: 15 PHYSICAL EXAM (up to 7 for level 4, 8 or more for level 5) ED Triage Vitals [12/31/17 1500] BP Temp Temp src Pulse Resp SpO2 Height Weight 132/64 98 ?F (36.7 ?C) -- 76 18 100 % 5' 2 (1.575 m) 158 lb (71.7 kg) Physical Exam Constitutional: She is oriented to person, place, and time. She appears well-developed and well-nourished. Non-toxic appearance. No distress. HENT: Head: Normocephalic and atraumatic. Eyes: Conjunctivae are normal. Right eye exhibits no discharge. Left eye exhibits no discharge. No scleral icterus. Neck: Normal range of motion. Neck supple. Cardiovascular: Normal rate, regular rhythm, normal heart sounds and intact distal pulses. Pulmonary/Chest: Effort normal and breath sounds normal. No respiratory distress. Abdominal: Soft. Bowel sounds are normal. She exhibits no distension and no mass. There is no tenderness. There is no rebound and no guarding. No hernia. Musculoskeletal: Normal range of motion. She exhibits no deformity. Back: There is no midline spinous tenderness. There is tenderness to the RIGHT midback without erythema, ecchymosis. No rashes or lesions. Neurological: She is alert and oriented to person, place, and time. GCS eye subscore is 4. GCS verbal subscore is 5. GCS motor subscore is 6. Skin: Skin is warm and dry. She is not diaphoretic. Psychiatric: She has a normal mood and affect. Her behavior is normal. Judgment and thought content normal. Nursing note and vitals reviewed. DIAGNOSTIC RESULTS EKG (Per Emergency Physician): RADIOLOGY (Per Emergency Physician): Interpretation per the Radiologist below, if available at the time ofthis note: Xr Lumbar Spine (2-3 Views) Result Date: 12/31/2017 Patient Name: ROBYN FIELDS ---Diagnostic Radiology--- Exam Date/Time 12/31/2017 15:41:59 EDT Exam CR Spine Lumbosacral 2 or 3 Views Ordering Physician JULISSA KOTHARI RYAN Accession Number [id number] CPT4 Codes 27055 () Reason For Exam pain Report EXAMINATION: Lumbar spine CLINICAL INDICATION: Low back pain COMPARISON: None TECHNIQUE: Three views of the lumbar spine FINDINGS: AP, lateral, and cone-down lateral views of the lumbosacral spine were provided. There are 5 normal lumbar type vertebra. The lumbar spine is in normal anatomic alignment. There is no evidence of loss of the body height. Mild multilevel degenerative changes are present. This includes facet arthropathy at L4-5 and L5-S1. Mild intervertebral disc space narrowing atL5-S1. The sacroiliac joints are intact without evidence of erosion or widening. Note is made of atheromatous vascular calcifications. IMPRESSION: 1.No radiographic evidence of acute abnormality of lumbar spine. 2.Mild multilevel degenerative changes. Report Dictated on --- Final --- Dictating Physician: MD NASCIMENTO JASON Signed Date and Time: 12/31/2017 4:20 pm Signed by: MD NASCIMENTO JASON Transcribed Date and Time: 12/31/2017 4:21 Xr Spine Thoracic 3 Vw Result Date: 12/31/2017 Patient Name: ROBYN FIELDS ---Diagnostic Radiology--- Exam Date/Time 12/31/2017 15:41:59 EDT Exam CR Spine Thoracic 3 Views Ordering Physician JULISSA KOTHARI RYAN Accession Number [id number] CPT4 Codes 76253 () Reason For Exam thoracic pain Report Thoracic spine: 12/31/2017. Clinical Information: Pain Findings: AP, swimmer's and lateral views of the thoracic spine were compared to a lateral chest x-ray 11/27/2017. There is now loss of height of a lower dorsal vertebral body new from the prior study. The heights of the thoracic vertebral bodies and intervertebral disc spaces are otherwise maintained. No paraspinal soft tissue masses are seen. IMPRESSION: New compression deformity as described above. Report Dictated on Workstation: [facility] --- Final --- Dictating Physician: MD THURMAN RISA Signed Date and Time: 12/31/2017 4:02 pm Signed by: MD THURMAN RISA Transcribed Date and Time: 12/31/2017 4:03 ED BEDSIDE ULTRASOUND: Performed by ED Physician - none LABS: Labs Reviewed CBC WITH AUTO DIFFERENTIAL - Abnormal; Notable for the following: Result Value Hemoglobin 11.3 (*) Hematocrit 33.5 (*) RDW 18.4 (*) All other components within normal limits Narrative: Test Performed by [facility] [address] [place] [address] COMPREHENSIVE METABOLIC PANEL - Abnormal; Notable for the following: Total Protein 8.3 (*) All other components within normal limits Narrative: Test Performed by [facility] [address] [place] [address] URINALYSIS Narrative: Test Performed by [facility] [address] [place] [address] ACETAMINOPHEN LEVEL Narrative: Test Performed by [facility] [address] [place] [address] All other labs were within normal range or not returned as of this dictation. EMERGENCY DEPARTMENT COURSE and DIFFERENTIAL DIAGNOSIS/MDM: Vitals: Vitals: 12/31/17 1500 BP: 132/64 Pulse: 76 Resp: 18 Temp: 98 ?F (36.7 ?C) SpO2: 100% Weight: 71.7 kg (158 lb) Height: 5' 2 (1.575 m) Medications sodium chloride flush 0.9 % injection 3 mL (not administered) morphine injection 4 mg (not administered) 0.9 % sodium chloride bolus (0 mLs Intravenous Stopped 12/31/17 1708) cyclobenzaprine (FLEXERIL) tablet 10 mg (10 mg Oral Given 12/31/17 1630) MDM. Patient is a referral from the PCP is P's office for possible Tylenol toxicity. We will obtain labs, acetaminophen level and x-rays of the thoracic and lumbar spine per PCP's request. Screening labs obtained and essentially normal. H&H improved 11.3 and 33, platelets normal. Acetaminophen level normal. X-ray of the thoracic spine shows no compression deformity. X-ray lumbar spine shows degenerative changes but no acute abnormality. I did discuss these findings with patient. Clinically, she does not have any midline tenderness and describes more of a muscle strain. However with his new deformity, likely could be causing the symptoms. Patient will avoid NSAID use at this time due to recent episode of anemia. We will prescribe a small quantity of [place], Flexeril and Lidoderm patches. She will follow-up with her PCP in next 2-3 days. She will return with any new or worsening symptoms. She is agreeable plan. REVAL: CRITICAL CARE TIME Total Critical Care time was 0 minutes, excluding separately reportable procedures. There was a high probability of clinically significant/life threatening deteriorationin the patient's condition which required my urgent intervention. CONSULTS: None PROCEDURES: Unless otherwise noted below, none Procedures FINAL IMPRESSION 1. Acute right-sided thoracic back pain 2. Closed compression fracture of thoracic vertebra, initial encounter ([facility]) DISPOSITION/PLAN DISPOSITION Decision To Discharge 12/31/2017 04:58:49 PM PATIENT REFERRED TO: Sonya Vides MD [address] [place] [id number] Call in 3 days DISCHARGE MEDICATIONS: Discharge Medication List as of 12/31/2017 4:50 PM START taking these medications Details HYDROcodone-acetaminophen (NORCO) 5-325 MG per tablet Take 1 tablet by mouth every 8 hours as needed for Pain for up to 7 days.., Disp- 15 tablet, R-0Print cyclobenzaprine (FLEXERIL) 10 MG tablet Take 1 tablet by mouth 3 times daily as needed for Muscle spasms, Disp-30 tablet, R-0Print lidocaine (LIDODERM) 5 % Place 1 patch onto the skin daily 12 hours on, 12 hours off., Disp-15 patch, R-0Print (Please note: Portions of this note were completed with a voice recognition program. Efforts were made to edit the dictations but occasionally words and phrases are mis-transcribed.) Form [id number] CHETNA Somers CNP (electronically signed) Emergency Medicine Provider CHETNA Somers CNP 12/31/17 1713 HEMOGLOBIN AND Collected: 12/27/2017 Status: F Source: [facility] HEMATOCRIT 4:38 PM SYSTEM REPOSITORY TYPE CODE TESTS RESULT OUT OF REFERENCE UNITS RANGE LAB HGB 11.7-16.0 g/dL Low Hemoglobin 9.7 Result Comment: Post transfusion. LAB HCT 35.0-47.0 % Hematocrit Low 28.8 Performed By: #### HGHCT #### [facility] [address] [place] [address] DISCHARGE SUMMARY Observed: 12/27/2017 Status: F Source: [facility] 2:30 PM SYSTEM REPOSITORY Physician Discharge Summary Dictating Resident: Christina Marie Patient ID: Patient: Robyn Fields Date of : 1960 Age: 57 y.o. Sex: female Acct: [id number] Code Status full code Admit Date: 12/26/2017 Discharge date: 12/27/17 Service, Admitting Physician: [facility] Teaching Service, Dr. Wahl Admission Diagnoses: Melena [K92.1] Initial H&P: The patient is a 57 y.o. female pmhx signifcant CAD with Stent (2016), HTN present with concern of Anemia. Patient is a direct admit from Dr. Wahl. Patient reports blood in stools (melena) last Saturday. She admits to having diarrhea of black stools and 30 mins later she had a bowel movement of liquid red blood. Admits to a small amount of red streak of blood in stool ~1 month ago. She denies hx of colonoscopy or EGD. Patient endoses vomiting 2 days ago. Patient reported been sent for blood work during a [facility] office visit for cold symptoms and prescribed (Augmentin, protonix, claritin, flonase ). Hgb was found to be 7.8.( 12/23). 12/25 Hgb 7.0. (US of abd no acute process). She admits currently to cough, sob with exertion. She denies n, v, d today. ? Significant labs/imaging: hgb 7.0 hct 21.5 Hospital Course: Patient presented with Anemia 2/2 to GI bleed (upper vs lower). Patient on PPI and scheduled for EGD in the AM. H/H q6. Patient plavix and ASA held. No blood in stools during hospital stay. EGD showed erythema with few erosions at GE junction, few AVM. Biopsy during procedure. See report below. GI recommended continue PPI and follow up with pathology. Patient disharged on Protonix and Plavix stopped. Follow-up with GI in a month and PCP within next week The plan of care (including instructions for proper medication use, follow up, and indications for returning to the hospital) was explained to the patient in layman's terms. Patient verbalized an understanding and was comfortable with the disposition. Patient was clinically and hemodynamically stable at the time of discharge. ? Diagnostic Studies: endoscopy: gastroscopy: Pre-operative Diagnosis: anemia, dark stool ? Post-operative Diagnosis: 1. Grade A esophagitis 2. Small Hiatal Hernia 3. Duodenal avm's(few) - not bleeding Procedure: EGD and bx ? Anesthesia: MAC Surgeons/Assistants: YVETTE VALENCIA MD Estimated Blood Loss: less than 50 Complications: None Specimens: Was Obtained: 1. Duodenum - r/o sprue 2. GE junction ? Findings: see above. Erythema with a few erosions at GE junction - bx. bx sb for sprue. avm's few, and small without srh. continue PPI, f/u path ? Us Abdomen Complete Result Date: 12/24/2017 Patient Name: ROBYN FIELDS ---Ultrasound--- Exam Date/Time 12/24/2017 17:41:00 EDT Exam US Abdomen Complete Ordering Physician MD CELESTE, KISHOR YOUNG Accession Number [id number] CPT4 Codes 35246 () Reason For Exam R10.11 RUQ pain Report COMPLETE ULTRASOUND OF THE ABDOMEN CLINICAL INDICATION: R10.11 RUQ pain TECHNIQUE: Real-time ultrasound of the abdomen. COMPARISON: None FINDINGS: Atherosclerotic changes in a nonaneurysmal aorta. IVC appears grossly unremarkable. No focal hepatic lesion. No biliary tree dilatation. Normal gallbladder without stones. Negative Gipson sign. Common bile duct is normal measuring 4 mm. Pancreatic tail is obscured by bowel gas. Pancreas otherwise unremarkable. Right kidney measures 9.3 x 5.5 x 4.9 cm. Left kidney measures 10.5 x 5.7 x 4.9 cm. Kidneys appear normal. Normal appearance of the spleen measuring 10.1 cm in maximal length. IMPRESSION: 1. No acute abnormality. Report Dictated on --- Final --- Dictating Physician: MD MCLEOD JOHN R Signed Date and Time: 12/24/2017 7:14 pm Signed by: MD MCLEOD JOHN R Transcribed Date and Time: 12/24/2017 7:15 Treatments: IV hydration Consults: GI Discharge Condition: stable Primary Discharge Diagnosis: Iron deficiency anemia due to chronic blood loss Secondary Diagnoses: Active Hospital Problems Diagnosis Date Noted ? Class 1 obesity due to excess calories in adult [E66.09] 01/30/2018 ? Iron deficiency anemia due to chronic blood loss [D50.0] 12/26/2017 ? Presence of stent in coronary artery in patient with coronary artery disease [I25.10, Z95.5] 12/26/2017 ? Gastroesophageal reflux disease without esophagitis [K21.9] 12/26/2017 ? Pure hypercholesterolemia [E78.00] 12/26/2017 ? URI with cough and congestion [J06.9] 12/26/2017 ? Melena [K92.1] 12/26/2017 ? Tobacco abuse [Z72.0] 10/15/2016 ? Essential hypertension [I10] 10/18/2015 ? Depression [F32.9] 10/18/2015 Anemia related to Plavix use Disposition: Home will be followed by Dr. Wahl. Patient Instructions: Activity: activity as tolerated Diet: cardiac diet Follow-up: in 1 month. Tests needed as outpatient: colonoscopy Medications: Medication List CHANGE how you take these medications dextromethorphan-guaiFENesin 20-400 MG Tabs Take 1 tablet by mouth every 4 hours as needed (cough) What changed: how much to take lisinopril 10 MG tablet Commonly known as: PRINIVIL;ZESTRIL What changed: Another medication with the same name was removed. Continue taking this medication, and follow the directions you see here. pantoprazole 20 MG tablet Commonly known as: PROTONIX Take 2 tablets by mouth daily What changed: how much to take CONTINUE taking these medications aspirin 81 MG chewable tablet Take 1 tablet by mouth daily atorvastatin 80 MG tablet Commonly known as: LIPITOR Take 1 tablet by mouth nightly fluticasone 50 MCG/ACT nasal spray Commonly known as: FLONASE 1 spray by Nasal route daily loratadine 10 MG tablet Commonly known as: CLARITIN Take 1 tablet by mouth daily nicotine 14 MG/24HR Commonly known as: NICODERM CQ Place 1 patch onto the skin every 24 hours nicotine polacrilex 2 MG lozenge Commonly known as: NICOTINE MINI Take 1 lozenge by mouth as needed for Smoking cessation nitroGLYCERIN 0.4 MG SL tablet Commonly known as: NITROSTAT up to max of 3 total doses. If no relief after 3 dose, call 911. STOP taking these medications clopidogrel 75 MG tablet Commonly known as: PLAVIX ASK your doctor about these medications amoxicillin-clavulanate 875-125 MG per tablet Commonly known as: AUGMENTIN Take 1 tablet by mouth 2 times daily for 7 days Ask about: Should I take this medication? Where to Get Your Medications These medications were sent to [address] [phone] - F [phone] [place] [id number] ? pantoprazole 20 MG tablet Safety Check List Clinical Stability: Vital signs and pulse oximetry stable: Yes Clinical condition stable: Yes Patient is at cognitive baseline: Yes Patient is at functional baseline: Yes Patient has baseline oral intake x 24 hours: Yes Patient is on all oral medication: Yes Patient is on home insulin regimen (no SSI): No Patient has a urinary catheter: No Patient has a PICC line: No Does patient need home oxygen: No Does patient need home PT: No Does patient need home jail: No If so, does it need to be within 24 hours: No Does patient have any new medications: No Prior auth needed: No Available at discharge: NA Home IV meds: NA Signed: Christina Marie PGY- 2 Pager # [phone] 01/30/2018 BASIC METABOLIC PANEL Collected: 12/27/2017 Status: F Source: [facility] 10:31 AM SYSTEM REPOSITORY TYPE CODE TESTS RESULT OUT OF RANGE REFERENCE UNITS LAB NA3 137-145 mmol/L Sodium Normal 139 LAB K3 3.5-5.1 mmol/L Normal Potassium 4.4 LAB CL3 98-107 mmol/L Chloride Normal 106 LAB CO23 22-30 mmol/L Carbon Normal Dioxide 27 LAB ANIN3 NA Anion Gap 7 LAB GLUC3 70-100 mg/dL Glucose Normal 86 LAB BUN3 7-20 mg/dL Low Urea Nitrogen 5 LAB CRET3 0.52-1.25 mg/dL Normal Creatinine 0.57 LAB GF3BR >60 mL/min eGFR > 60.0 LAB GF3WR >60 mL/min eGFR OTHER > 60.0 Result Comment: Source- MDRD equation with creatinine calibration to IDMS(NKDEP) eGFR not recommended for drug dose adjustment LAB CA3 8.4-10.4 mg/dL Normal Calcium 9.2 Performed By: #### BMP3M, HEMOG #### [facility] [address] [place] [address] HEMOGRAM Collected: 12/27/2017 Status: F Source: [facility] 10:31 AM SYSTEM REPOSITORY TYPE CODE TESTS RESULT OUT OF RANGE REFERENCE UNITS LAB IWBC 3.6-10.7 10*3/uL WBC Normal 8.6 LAB RBC 3.80-5.20 10*6/uL Low RBC 3.77 LAB HGB 11.7-16.0 g/dL Low Hemoglobin 10.3 LAB HCT 35.0-47.0 % Low Hematocrit 31.2 LAB MCV 79.0-98.0 fL MCV Normal 82.6 LAB MCH 26.0-34.0 pg MCH Normal 27.4 LAB MCHC 32.0-36.0 % MCHC Normal 33.2 LAB RDW 11.5-14.5 % High RDW 17.4 LAB PLT 140-440 10*3/uL Platelet Normal 420 LAB MPV 7.4-10.4 fL MPV Normal 8.0 Performed By: #### BMP3M, HEMOG #### [facility] [address] [place] [address] Observed: 12/27/2017 Status: F Source: [facility] 9:50 AM SYSTEM REPOSITORY [id number] [facility] PATHOLOGY AND LABORATORY MEDICINE [address] [place] [address] Fax - FINAL SURGICAL PATHOLOGY REPORT NAME: ROBYN FIELDS : 1960 57 Y F BILLING NO.: [id number] LOCATION: [place] [address] PROCEDURE 12/27/2017 DATE: SURGEON: YVETTE VALENCIA M.D. RECEIVED 12/27/2017 DATE: ATTENDING: CHACE WAHL MD REPORT DATE: 12/30/2017 COPIES TO: DIAGNOSIS: A. SMALL INTESTINE, BIOPSY - SMALL BOWEL MUCOSA WITH NO SIGNIFICANT PATHOLOGICAL ABNORMALITIES. COMMENT: The specimen demonstrates an unremarkable villous architecture without significantly increased intraepithelial lymphocytes. Whipple's disease is not identified. Parasites are not identified. B. 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 NO EVIDENCE OF DYSPLASIA OR MALIGNANCY. 0SS/0SS <Sign Out Dr. Eddy> CHASE VO MD CLINICAL INFORMATION: Iron deficiency anemia secondary to chronic blood loss SPECIMEN: (A) SMALL INTESTINE, BIOPSY (B) ESOPHAGO-GASTRIC JUNCTION, BIOPSY GROSS DESCRIPTION: A. Small bowel biopsy Received in formalin are two segments of glaser tissue 0.1 and 0.4 cm. Submitted in toto. (1 ns, 1) B. Gastroesophageal junction biopsy Received in formalin are two segments of rascon tissue 0.2 and 0.4 cm. Submitted in toto. (2 ns, 1) JCK/JAF Disclaimer: The following statement applies to all immunohistochemistry, in situ hybridization, molecular studies, and immunofluorescence testing. The use of one or more reagents in the above tests is regulated as an analyte specific reagent (ASR). These tests were developed and their performance characteristics determined by the clinical laboratories of [facility] [employer] [facility]. They have not been cleared by the US Food and Drug Administration (FDA). The FDA has determined that such clearance or approval is not necessary. All the above immunostains were performed on paraffin embedded tissue. Appropriate positive and negative controls (where applicable) were run in parallel with the patient's specimen; these controls showed expected staining pattern, with acceptable intensity of staining. Immunohistochemical assays have not been validated on decalcified tissues. Results should be interpreted with caution given the raised possibility of false negativity on decalcified specimens. Case reviewed at [place] [address] [place] [address]. DEPARTMENT OF PATHOLOGY AND LABORATORY MEDICINE [place], [place] [address] HEMOGLOBIN AND Collected: 12/27/2017 Status: F Source: [facility] HEMATOCRIT 12:07 AM SYSTEM REPOSITORY TYPE CODE TESTS RESULT OUT OF REFERENCE UNITS RANGE LAB HGB 11.7-16.0 g/dL Low Alert Hemoglobin 6.7 LAB HCT 35.0-47.0 % Low Hematocrit 20.9 Performed By: #### HGHCT #### [facility] [address] [place] [address] HEMOGLOBIN AND Collected: 12/26/2017 Status: F Source: [facility] HEMATOCRIT 5:19 PM SYSTEM REPOSITORY TYPE CODE TESTS RESULT OUT OF REFERENCE UNITS RANGE LAB HGB 11.7-16.0 g/dL Low Hemoglobin 7.2 LAB HCT 35.0-47.0 % Low Hematocrit 22.2 Performed By: #### HGHCT, PT #### [address] [place] [address] PROTHROMBIN TIME Collected: 12/26/2017 Status: F Source: [facility] 5:19 PM SYSTEM REPOSITORY TYPE CODE TESTS RESULT OUT OF REFERENCE UNITS RANGE LAB PROTM 9.0-12.0 s Prothrombin Normal Time 9.7 Result Comment: . LAB INR 0.9-1.1 NA Normal INR 0.9 Result Comment: Recommended Anticoagulant Therapy: SEE BELOW ----- INR of 2.0 - 3.0 : - Prophylaxis of Venous Thrombosis (high-risk surgery) - Treatment of Venous Thrombosis - Treatment of Pulmonary Embolism (Includes tissue heart valves, Acute Myocardial Infarction to prevent systemic embolism, Valvular Heart Disease, and Atrial Fibrillation) ----- INR of 2.5 - 3.5 : - Mechanical Prosthetic Valves (high risk) - If oral anticoagulant therapy is used to prevent Myocardial Infarction Performed By: #### HGHCT, PT #### [address] [place] [address] Observed: 12/26/2017 Status: F Source: [facility] TS GEL 11:48 AM SYSTEM REPOSITORY ABO Group: O Rh, Gel: POS Antibody Screen Gel: NEG Performed By: #### TSGL #### [address] [place] [address] #### LRC #### [address] [address] Observed: 12/26/2017 Status: F Source: [facility] LEUKODEPLETED RED CELLS 11:48 AM SYSTEM REPOSITORY Leukodepleted Red Cells: [id number] transfused 12/27/17 01:29 TR1 Unit Blood Type: O Unit Blood Rh: POS Blood Product Code: AS3 Unit Number: [id number] Unit Status: transfused Barcoded Unit Number: =[id number] Barcoded Product Code: =<K3905Q19 Barcoded ABO/Rh: =%5100 Unit Expiration: Unit Volume Transfused: 300 Unit Transfusion Start Date/Time: [id number] Leukodepleted Red Cells: [id number] transfused 12/27/17 05:01 TR1 Unit Blood Type: O Unit Blood Rh: POS Blood Product Code: CP1 Unit Number: [id number] Unit Status: transfused Barcoded Unit Number: =[id number] Barcoded Product Code: =<D7671G06 Barcoded ABO/Rh: =%5100 Unit Expiration: Unit Volume Transfused: 250 Unit Transfusion Start Date/Time: Performed By: #### TSGL #### [facility] [address] [place] [address] #### LR #### [facility] [address] [place] [address] HEMOGRAM W/ AUTODIFF Collected: 12/26/2017 Status: F Source: [facility] 11:48 AM SYSTEM REPOSITORY TYPE CODE TESTS RESULT OUT OF RANGE REFERENCE UNITS LAB IWBC 3.6-10.7 10*3/uL WBC Normal 9.6 LAB RBC 3.80-5.20 10*6/uL Low RBC 2.69 LAB HGB 11.7-16.0 g/dL Low Hemoglobin 7.4 LAB HCT 35.0-47.0 % Low Hematocrit 22.0 LAB MCV 79.0-98.0 fL MCV Normal 81.9 LAB MCH 26.0-34.0 pg MCH Normal 27.4 LAB MCHC 32.0-36.0 % MCHC Normal 33.4 LAB RDW 11.5-14.5 % High RDW 18.3 LAB PLT 140-440 10*3/uL Platelet Normal 344 LAB MPV 7.4-10.4 fL MPV Normal 8.2 Performed By: #### HEMDF, MDIFF #### [facility] [address] [facility] [place] [address] MANUAL DIFF Collected: 12/26/2017 Status: F Source: [facility] Socratic 11:48 AM SYSTEM REPOSITORY TYPE CODE TESTS RESULT OUT OF REFERENCE UNITS RANGE LAB NEUTR 40-80 % Seg High Neutrophils 82 LAB BANDS 0-3 % Bands Normal 1 LAB LYMPH 20-40 % Low Lymphocytes 12 LAB MONOC 2-10 % Monocytes Normal 3 LAB EO 1-6 % Eosinophils Normal 1 LAB BASO 0-2 % Basophils Normal 1 LAB ANCM 2.2-8.2 10*3/uL Abs Normal Neutrophile Cnt 8.0 LAB ALCM 1.1-4.5 10*3/uL Abs Lymph Cnt Normal 1.2 LAB AMCM 0.2-1.1 10*3/uL Abs Monocyte Normal Cnt 0.3 LAB AECM 0.0-0.5 10*3/uL Abs Eosin Cnt Normal 0.1 LAB ABCM 0.0-0.2 10*3/uL Abs Baso Cnt Normal 0.1 LAB RBMOR NA RBC Morphology ABNORMAL LAB ANISO NA Anisocytosis MODERATE LAB HYPOC NA Hypochromia SLIGHT LAB POLYC NA Polychromasia SLIGHT LAB STOMA NA Stomatocytes SLIGHT LAB LIMIT NA Cells counted 100 LAB DIFCM NA Comment: SLIDE SCANNED Performed By: #### MD TIESHAIFF #### [facility] [address] [place] [address] US ABDOMEN COMPLETE Observed: 12/24/2017 Status: F Source: [facility] 7:07 PM SYSTEM REPOSITORY Patient Name: ROBYN FIELDS Ultrasound Exam Date/Time 12/24/2017 17:41:00 EDT Exam US Abdomen Complete Ordering Physician MD CELESTE, KISHOR YOUNG Accession Number [id number] CPT4 Codes 06085 () Reason For Exam R10.11 RUQ pain Report COMPLETE ULTRASOUND OF THE ABDOMEN CLINICAL INDICATION: R10.11 RUQ pain TECHNIQUE: Real-time ultrasound of the abdomen. COMPARISON: None FINDINGS: Atherosclerotic changes in a nonaneurysmal aorta. IVC appears grossly unremarkable. No focal hepatic lesion. No biliary tree dilatation. Normal gallbladder without stones. Negative Gipson sign. Common bile duct is normal measuring 4 mm. Pancreatic tail is obscured by bowel gas. Pancreas otherwise unremarkable. Right kidney measures 9.3 x 5.5 x 4.9 cm. Left kidney measures 10.5 x 5.7 x 4.9 cm. Kidneys appear normal. Normal appearance of the spleen measuring 10.1 cm in maximal length. IMPRESSION: 1. No acute abnormality. Report Dictated on Final Dictating Physician: MD SHANI, REJI Ritchie Signed Date and Time: 12/24/2017 7:14 pm Signed by: MD MCLEOD JOHN R Transcribed Date and Time: 12/24/2017 7:15 CR CHEST PA/LAT Observed: 12/02/2017 Status: F Source: [facility] 8:47 AM SYSTEM REPOSITORY Patient Name: ROBYN FIELDS Diagnostic Radiology Exam Date/Time 11/27/2017 10:22:47 EDT Exam CR Chest PA/LAT Ordering Physician MD MUNSON KATHERINE A. Accession Number [id number] CPT4 Codes 46045 () Reason For Exam Follow-up film for 4-6 weeks (found infiltrate vs. atelesctasis vs. neoplasm) Report Indication: Follow-up pneumonia. Frontal and lateral views of the chest are compared to the study from an outside institution dated 10/10/2017. The heart is not enlarged. The mediastinum and pulmonary vascularity are within normal limits. There is mild diffuse bilateral interstitial lung prominence which is similar to the prior study and probably chronic in nature. No focal airspace infiltrates are visualized. The previously seen subtle right lower lung infiltrate is no longer visualized. There are degenerative changes of the thoracic spine and shoulders. IMPRESSION: 1. No active intrathoracic disease. The previously seen subtle right lower lung infiltrate is no longer visualized. Mild bilateral interstitial lung prominence which is probably chronic in nature. Report Dictated on Final Dictating Physician: DO PLUNKETT ANTHONY Signed Date and Time: 12/02/2017 8:49 am Signed by: DO PLUNKETT ANTHONY Transcribed Date and Time: 12/02/2017 8:50 12 LEAD ELECTROCARDIOGRAM Observed: 10/14/2017 Status: F Source: [place] 3:20 PM [facility] REPOSITORY [facility] Cardiovascular Services [address] [place] [address] 12 Lead EKG 10/11/17 1209 MR#: [id number] Acct: [id number] Name: ROBYN FIELDS Rep #: [id number] : 1960 57 From: Dennis Tariq MD Attending Dr: Status: DEP ER Ordering Dr: Gilberto Greene MD Date: 10/11/17 Location: ED Sex: F C Admitted: Test Reason : CP Blood Pressure : / mmHG Vent. Rate : 107 BPM Atrial Rate : 107 BPM P-R Int : 148 ms QRS Dur : 088 ms QT Int : 358 ms P-R-T Axes : 038 059 080 degrees QTc Int : 477 ms Sinus tachycardia Inferior infarct , age undetermined Abnormal ECG Confirmed by DENNIS TARIQ MD ([id number]), fan mail editor ABIMAEL CLARK ([id number]) on 10/14/2017 3:19:52 PM Referred By: ER Confirmed By:DENNIS TARIQ MD 10/14/17 7962 Date Dennis Tariq MD CC: No Primary Care Physician; Gilberto Greene MD Signed 12 LEAD ELECTROCARDIOGRAM Observed: 10/14/2017 Status: F Source: EN[place] 3:14 PM [facility] REPOSITORY [facility] Cardiovascular Services [address] [place] [address] 12 Lead EKG 10/10/17 1423 MR#: [id number] Acct: [id number] Name: ROBYN FIELDS Rep #: [id number] : 1960 57 From: Dennis Tariq MD Attending Dr: Status: DEP ER Ordering Dr: Cuong Hogan MD Date: 10/10/17 Location: ED Sex: F C Admitted: Test Reason : SUBSTANCE ABUSE Blood Pressure : / mmHG Vent. Rate : 107 BPM Atrial Rate : 107 BPM P-R Int : 160 ms QRS Dur : 086 ms QT Int : 352 ms P-R-T Axes : 060 073 084 degrees QTc Int : 469 ms Sinus tachycardia Otherwise normal ECG Confirmed by DENNIS TARIQ MD ([id number]), fan mail editor ABIMAEL CLARK ([id number]) on 10/14/2017 3:14:21 PM Referred By: CF Confirmed By:DENNIS TARIQ MD 10/14/17 1562 Date Dennis Tariq MD CC: Chapin Hogan MD; OUT OF TOWN DOCTOR Signed DISCHARGE INSTRUCTION Observed: 10/11/2017 Status: F Source: MEGA 1:18 PM [facility] REPOSITORY [facility] Medical Records Department [address] [place] [address] Discharge Instruction 10/11/177 MR#: [id number] Acct: [id number] Name: MAHSA,ROBYN A Rep #: [id number] : 1960 57 From: Gilberto Greene MD PCP: Joleen Physician, No Primary Status: REG ER ED Disposition - Plan for ED Patient: Disposition: Home or Assisted Living Chief Complaint: Chest Pain Instructions: ED Withdrawal Alcohol Referrals: Care Physician,No Primary [Primary Care Provider] - What to do if you have Problems For any increased pain, shortness of breath, bleeding, nausea or vomiting, chest pain, or any unexpected problems, contact your Primary Care Provider. Call [facility] ([phone]) or report to the closest Emergency Room. Call 911 if necessary. 10/11/17 1318 <Electronically signed by Gilberto Greene MD> Date Gilberto Greene MD Cosigner Signature (If Indicated): Date CC: No Primary Care Physician EMERGENCY DEPARTMENT Observed: 10/11/2017 Status: F Source: MEGA SUMMARY 1:17 PM [facility] REPOSITORY [facility] Medical Records Department [address] [place] [address] Emergency Department Summary 10/11/17 1315 MR#: [id number] Acct: [id number] Name: MAHSAROBYN Stan Rep #: [id number] : 1960 57 From: Gilberto Greene MD PCP: Joleen Physician, No Primary Status: REG ER - ER Visit Summary Date of Service: 10/11/17 Chief Complaint: Palpitations, alcohol withdrawal History of Present Illness: The patient is a 57 F who presents with the above symptoms. She was seen here last night requesting alcohol withdrawal detoxification and admission to the hospital. She met no criteria last night. She comes back today with similar symptoms. She feels like her heart is racing. No chest pain. She did not drink anything last night. She states that she was drinking about a pint of liquor per day. Her last drink was 2 days ago. Physical Examination: Vital signs reviewed. HEENT exam unremarkable. Heart is tachycardic and regular rhythm without murmurs. Lungs are clear to auscultation. Abdomen is soft and nontender. Extremities reveal no edema. Skin exam normal. Neurologic exam normal. Test Results: EKG is sinus rhythm with rate of 107. No ST changes. Labs reveal platelet count of 141, potassium 3.3, glucose 147. Troponin normal Emergency Department Course and Treatment: Repeat heart rate of the patient is 85. Her heart rate is likely due to a little bit of withdrawal. I had [facility] come down and evaluate the patient. Her Ciwa score is a 4 which does not qualify her for admission. Patient will be discharged to manage as an outpatient. Treatment Plan: [] Disposition: Discharge Impression: Alcohol withdrawal This note was generated with [employer] dictation software. It may contain incorrect words, spelling, and punctuation that were not noted in review of the chart prior to signing ED Disposition - Plan for ED Patient: Chief Complaint: Chest Pain Referrals: Care Physician,No Primary [Primary Care Provider] - What to do if you have Problems For any increased pain, shortness of breath, bleeding, nausea or vomiting, chest pain, or any unexpected problems, contact your Primary Care Provider. Call [facility] ([phone]) or report to the closest Emergency Room. Call 911 if necessary. 10/11/17 1317 <Electronically signed by Gilberto Greene MD> Date Gilberto Greene MD Cosigner Signature (If Indicated): Date CC: No Primary Care Physician CBC W/DIFF, AUTOMATED Collected: 10/11/2017 Status: F Source: MEGA 12:16 PM [facility] REPOSITORY TYPE CODE TESTS RESULT OUT OF RANGE REFERENCE UNITS LAB L100.1000 4.4-11.0 K/mm3 Normal WBC 6.4 LAB L100.1200 4.2-5.4 M/mm3 Low RBC 3.77 LAB L100.1300 12.0-15.0 g/dl Normal HGB 12.1 LAB L100.1400 37-47 % Low HCT 36.4 LAB L100.1500 81-99 fL Normal MCV 96.6 LAB L100.1600 27.0-32.0 pg High MCH 32.1 LAB L100.1700 32-36 g/gl Normal MCHC 33.2 LAB L100.1810 11.6-14.6 % High RDW CV 15.1 LAB L100.1820 35.1-43.9 fl High RDW SD 53.6 LAB L100.1900 150-450 K/mm3 Low PLT 141 LAB L100.2000 6.2-12.0 fl Normal MPV 10.0 LAB L100.2100 47-70 % High NEUT% 76.1 LAB L100.2200 19-41 % Low LY% 18.2 LAB L100.2300 0-10 % Normal MONO% 4.0 LAB L100.2400 0-5 % Normal EO% 0.8 LAB L100.2500 0-1 % Normal BASO% 0.6 LAB L100.2550 0.0-0.9 % Normal IM GRAN % 0.300 Result Comment: IG% - Immature Granulocytes (promyelocytes, myelocytes and metamyelocytes) > 1% indicates that a LEFT SHIFT is Present. LAB L100.2620 2.0-7.7 X10 3/uL Normal Absolute Neut 4.9 LAB L100.2720 0.83-4.51 X10 3/ul Normal Absolute Lymph 1.17 Performed By: #### L100.0100 #### [facility] [place], [address] BASIC METABOLIC Collected: 10/11/2017 Status: F Source: [place] PROFILE (BMP) 12:16 PM [facility] REPOSITORY TYPE CODE TESTS RESULT OUT OF RANGE REFERENCE UNITS LAB L501.0100 74-106 mg/dL High GLU 147 Result Comment: Fasting Glucose result greater than or equal to 126 mg/dL suggests DIABETES MELLITUS per A.D.A. criteria. Please note revised GLUCOSE reference range effective 2017. LAB L501.1000 7-18 mg/dL Normal BUN 16 LAB L501.1100 0.55-1.02 mg/dL Normal CREAT,SERUM 0.73 Result Comment: The validity of the calculated GFR AND GFRAA in patients over 70 years has not been determined. Clinical correlation is essential. LAB L501.1110 >60 mL/min Normal EST GFR 87 Result Comment: Non- GFR Calc LAB L501.1115 >60 mL/min Normal EST GFR - AA 105 Result Comment: GFR Calc LAB L501.1255 ml/min Normal Estimated CRCL 66.44 LAB L501.1300 10-20 RATIO High BUN/CRE 21.8 LAB L501.2200 8.5-10 mg/dL Normal .1 CA 9.0 LAB L501.5300 136-14 mmol/L Normal 5 NA 139 LAB L501.5600 3.5-5. mmol/L Low 1 K 3.3 LAB L501.5900 98-107 mmol/L Normal CL 105 LAB L501.6100 21.0-3 mmol/L Normal 2.0 CO2 26.0 LAB L501.6200 5-15 Normal GAP 8 Performed By: #### L500.2500, L501.4010 #### [facility] Laboratory [facility] [place], [address] TROPONIN-I Collected: 10/11/2017 Status: F Source: ME[place] 12:16 PM [facility] REPOSITORY TYPE CODE TESTS RESULT OUT OF RANGE REFERENCE UNITS LAB L501.4010 <0.045 ng/mL Normal < 0.015 TROPONIN-I Result Comment: TROPONIN-I EXPECTED VALUES <0.045 Negative 0.045 - 0.590 Consistent with Cardiac Damage > OR = 0.600 Critical Value Not every elevated troponin is indicative of DC. These values should be used with clinical judgement in examining the patient's clinical picture for diagnosis. To establish a diagnosis of DC versus myocardial injury, there must be a demonstrated rise and/or fall in the troponin values, in addition to ischemic symptoms, EKG changes, new regional wall motion abnormality, and/or angiographical evidence. PLEASE NOTE: REFERENCE RANGES EDITED 17 Performed By: #### L500.2500, L501.4010 #### [facility] Laboratory [address] [place], [address] CONSULTATION Observed: 10/10/2017 Status: F Source: EN[place] 4:10 PM [facility] REPOSITORY [facility] Medical Records Department [address] [place] [address] Consultation 10/10/17 1603 MR#: [id number] Acct: [id number] Name: ROBYN FIELDS Rep #: [id number] : 1960 57 From: Jose Crowley DO PCP: OUT OF TOWN DOCTOR Status: DEP ER Y Location: ED Problem List (1) Alcohol abuse Status: Acute Reason for Consult Date of Consultation: 10/10/17 Reason for Consultation: alcohol abuse History of Present Illness: The patient is a 57 year old F who has been drinking a pint of vodka daily for the past 4 days. Patient states that she normally drinks 2 or 3 times per week. Patient states that days that she typically does not drink she feels okay. Patient has been sober in the past for about a month without any issues. Patient was just concerned because she drank for those 4 consecutive days and sought to seek treatment. Patient did receive Ativan in the emergency room the patient for potential admission. [] Past Medical History Medical History: Medical History (Last Updated 10/10/17 @ 16:05 by Jose Crowley DO) CAD (coronary artery disease) I25.10 Depression F32.9 HTN (hypertension) I10 Allergies sulfamethoxazole [From Bactrim] Allergy (Verified 10/10/17 13:55) Rash trimethoprim [From Bactrim] Allergy (Verified 10/10/17 13:55) Rash Home Medications: Ambulatory Orders Medication Instructions Recorded Atorvastatin Calcium [Atorvastatin 80 mg PO QHS 10/10/17 Lives: Alone Smoking Status: Heavy Smoker (>10/day) Tobacco Use: Cigarettes Alcohol: Heavy Drugs: None - *Family History Maternal History Items: - - no CAD Review of Systems Constitutional: Denies: Chills, Fever, Weight Change Eyes: Reports: - - Sees spots but has been ongoing long time according the patient.. Denies: Blurred vision, Double vision HEENT: Denies: Head Aches, Sinus Congestion, Sinus Drainage Cardiovascular: Denies: Chest Pain, Palpitations Respiratory: Denies: Cough, Shortness of breath at rest, Sputum production Gastrointestinal: Denies: Abdominal Pain, Nausea, Vomiting Genitourinary: Denies: Dysuria Musculoskeletal: Denies: Joint Pain, Joint Tenderness Skin: Denies: Rash, Wounds Neurological: Denies: Numbness, Tingling, Focal weakness Psychiatric: Reports: Depression. Denies: Anxiety Hematologic/ Lymphatic: Denies: Easy Bruising, Easy Bleeding, Hx of blood clot Comment: All review of systems are negative except as mentioned in the history of present illness and the other review of systems. - Physical Exam General: Alert, Cooperative, No apparent distress HEENT: Atraumatic, Normocephalic Oral: Moist Mucosa, No Gingival or Mucosal Lesions/ Ulcerations Neck: No Nodes, Thyroid Normal Size and Texture Lungs: Clear to auscultation, Normal air movement, No rhonchi, No wheeze Cardiovascular: Regular rate, Regular Rhythm, Normal S1, Normal S2 Abdomen: Bowel Sounds Present, Soft, Non Tender, Non-Distended Extremities: No edema, No Calf Tenderness Skin: No rashes, No breakdown Psych/Mental Status: Normal Affect, Appropriate Vital Signs Temp Pulse Resp BP Pulse Ox 36.8 C 100 17 144/83 H 100 10/10/17 13:53 10/10/17 15:55 10/10/17 15:55 10/10/17 15:55 10/10/17 15:55 Oxygen Delivery Method Room Air Weight: 74.843 kg Body Mass Index (BMI) 30.2 Laboratory Tests Past 24 Hrs Sodium 138 Potassium 4.2 Chloride 103 Carbon Dioxide 17.0 L Assessment/Plan All Active Problems Alcohol abuse (Acute) 1. Alcohol abuse * Patient's last drink was last night * Current calculated CIWA is 5 and therefore does not require inpatient treatment at this time. The patient did receive Ativan before this. Additionally make my decision with exception of these past 4 days. I do not feel that an of itself is a requirement for the patient be admitted for acute alcohol withdrawal * Certainly the patient's symptoms were to get worse and she concerned for admission. Patient is not telling us in the truth about her actual alcohol consumption but I did ask the patient on several occasions that and had her clarify that she only drinks 2-3 times per week usually. * Patient already has outpatient establishment with the counselors as well as AA. Patient encouraged to continue with those or restart this at her earliest convenience. Overall, the patient is stable and does not require inpatient hospitalization at this time. Thank you for the consult. Code Visit Office Visits / Consults: [id number] OP Consult L4 10/10/17 1610 <Electronically signed by Jose Crowley DO> Date Jose Crowley DO Cosigner Signature (if applicable): Date CC: OUT OF TOWN DOCTOR Signed EMERGENCY DEPARTMENT Observed: 10/10/2017 Status: F Source: [place] SUMMARY 3:52 PM [facility] REPOSITORY [facility] Medical Records Department [address] [place] [address] Emergency Department Summary 10/10/17 1535 MR#: [id number] Acct: [id number] Name: ROBYN FIELDS Rep #: [id number] : 1960 57 From: Cuong Hogan MD PCP: OUT OF TOWN DOCTOR Status: REG ER ADDENDUM by Chapin Hogan MD on 10/10/17 at 1552 CXR read by radiologist as atelectasis versus pneumonia. Patient denies any fever or cough with sputum production. I do not feel she requires treatment with antibiotics at this time. I advised her to follow-up with referred primary provider for repeat chest x-ray as recommended by radiology and return with any new or worsening symptoms. Patient verbalized understanding and is agreeable. Date Cuong Hogan MD cc: OUT OF TOWN DOCTOR * Signed - ER Visit Summary Date of Service: 10/10/17 Chief Complaint: [alcohol abuse] History of Present Illness: The patient is a 57 F [that presents following drinking for the last 4 days. She states she drinks a pint of vodka a day. Initially she stated she drank every day and then she later stated she does not drink every day. Her last drink was last evening. She does not appear intoxicated. She is mildly tachycardic. She does not appear altered or delirious. She is not currently having any hallucinations or tremors. She appears well and nontoxic. She has no other complaints.] Physical Examination: [General: The patient appears well and in no apparent distress. Patient is resting comfortably on cart. Skin: Warm, dry, no pallor noted. No rash. Head: Normocephalic, atraumatic Neck: Supple, nontender. Eye: PERRLA, EOMI ENT: Moist mucus membranes, pharynx within normal limits. Cardiovascular: Tachycardic rate and regular rhythm, no gallups or rubs Respiratory: Patient is in no distress, no accessory muscle use, lungs are clear to auscultation, no wheezing, rales or rhonchi Musculoskeletal: normal ROM, no deformity, no tenderness, no swelling. 2+ radial and DP pulses symmetric. GI: No tenderness to palpation, no masses appreciated. No rebound, guarding, or rigidity noted. Neurological: A AND O, normal strength and sensation. GCS 15 Psychiatric: Cooperative] Test Results: [CMP within normal limits other than CO2 of 17. Liver enzymes and lipase within normal limits. Alcohol level was 89. Urine drug screen was negative. Chest x-ray shows no acute process in my evaluation.] Emergency Department Course and Treatment: [She was given IV fluids and IV Ativan with improvement of symptoms. On reevaluation at 1530 her vitals are stable, heart rate in the 90s and blood pressure is improved. She feels overall improved. She was given 50 mg of p.o. Librium. Initially I requested to admit the patient to the hospitalist for further treatment. Dr. Crowley evaluated the patient in the emergency department and does not feel she requires admission at this time. I spoke with patient again and at this time she is requesting discharge. Patient has changed her initial story somewhat now stating that she does not drink every day. She has no symptoms of DTs at this time. She will be given follow-up with the counseling center. She does not currently want detox. She understands to return with any new or worsening symptoms. Patient discharged home in improved condition.] Treatment Plan: [see above] Disposition: [discharge home, stable condition] Impression: [Alcohol Abuse] This note was generated with [employer] software. It may contain incorrect words, spelling, and punctuation that were not noted in review of the chart prior to signing ED Disposition - Plan for ED Patient: Disposition: Home or Assisted Living Chief Complaint: Substance Abuse Instructions: ED Alcohol Abuse Referrals: Juan Jose Calix MD [STAFF PHYSICIAN] - Counseling,Center [GROUP OF PHYSICIANS] - What to do if you have Problems For any increased pain, shortness of breath, bleeding, nausea or vomiting, chest pain, or any unexpected problems, contact your Primary Care Provider. Call [facility] ([phone]) or report to the closest Emergency Room. Call 911 if necessary. 10/10/17 1541 <Electronically signed by Cuong Hogan MD> Date Cuong Hogan MD Cosigner Signature (If Indicated): Date CC: OUT OF TOWN DOCTOR URINE DRUG SCREEN Collected: 10/10/2017 Status: F Source: [place] (VISTA) 2:20 PM [facility] REPOSITORY TYPE CODE TESTS RESULT OUT OF RANGE REFERENCE UNITS LAB L505.0075 TO BE Normal CONFIRMED Result Comment: CONFIRMATORY TESTING FOR ALL POSITIVE URINE DRUG SCREEN RESULTS WILL ONLY BE SENT OUT UPON PHYSICIAN ORDER. VISTA Urine Drug Screen methods provide only preliminary analytical test results. A more specific alternate chemical method must be used in order to obtain a confirmed analytical result. Gas chromatography/mass spectrometery (GC/MS) is the preferred confirmatory method. Clinical consideration and professional judgement should be applied to any drug of abuse test result, particularly when preliminary positive results are used. URINE TCA TESTING MUST BE ORDERED SEPARATELY. USE TEST MNEMONIC: [facility] LAB L505.5005 VISTA UDS PH 5 Normal LAB L505.5015 <1000 ng/mL AMPHETAMINES Normal NEGATIVE LAB L505.5025 < 200 ng/mL BARBITIURATES Normal NEGATIVE LAB L505.5035 < 200 ng/mL BENZODIAZIPINE Normal NEGATIVE LAB L505.5045 < 300 ng/mL COCAINE Normal NEGATIVE LAB L505.5055 < 500 ng/mL ECSTACY Normal NEGATIVE LAB L505.5065 < 300 ng/mL METHADONE Normal NEGATIVE LAB L505.5075 < 300 ng/mL OPIATES Normal NEGATIVE LAB L505.5085 < 25 ng/mL PCP Normal NEGATIVE LAB L505.5095 < 50 ng/mL THC Normal NEGATIVE Performed By: #### L505.5000 #### [facility] [address] [place], [address] COMPREHENSIVE METABOLIC Collected: 10/10/2017 Status: F Source: [facility] 2:20 PM [facility] REPOSITORY TYPE CODE TESTS RESULT OUT OF RANGE REFERENCE UNITS LAB L501.0100 74-106 mg/dL Normal GLU 93 Result Comment: Please note revised GLUCOSE reference range effective 2017. LAB L501.1000 7-18 mg/dL High BUN 23 LAB L501.1100 0.55-1.02 mg/dL High CREAT,SERUM 1.05 Result Comment: The validity of the calculated GFR AND GFRAA in patients over 70 years has not been determined. Clinical correlation is essential. LAB L501.1110 >60 mL/min Low EST GFR 57 Result Comment: Non- GFR Calc LAB L501.1115 >60 mL/min Normal EST GFR - AA 69 Result Comment: GFR Calc LAB L501.1255 ml/min Normal Estimated CRCL 46.19 LAB L501.1300 10-20 RATIO High BUN/CRE 21.9 LAB L501.1500 6.4-8. g/dL High 2 T PROT 9.1 LAB L501.1800 3.2-5. g/dL Normal 0 ALB 4.8 LAB L501.1950 2.2-4. g/dL High 2 GLOB 4.3 LAB L501.2000 0.9-2. RATIO Normal 4 A/G 1.1 LAB L501.2200 8.5-10 mg/dL Normal .1 CA 9.7 LAB L501.4100 15-37 U/L Normal AST 37 LAB L501.4305 45-117 U/L Normal ALK P 77 LAB L501.4405 13-56 U/L Normal ALT 39 LAB L501.4600 0.20-1 mg/dL Normal .00 T BILI 0.40 LAB L501.5300 136-14 mmol/L Normal 5 NA 138 LAB L501.5600 3.5-5. mmol/L Normal 1 K 4.2 LAB L501.5900 98-107 mmol/L Normal CL 103 LAB L501.6100 21.0-3 mmol/L Low 2.0 CO2 17.0 LAB L501.6200 5-15 High GAP 18 Performed By: #### L500.4050, L501.2450 #### [facility] [address] [facility]. [place], [place], [id number] LIPASE Collected: 10/10/2017 Status: F Source: [place] 2:20 PM [facility] REPOSITORY TYPE CODE TESTS RESULT OUT OF RANGE REFERENCE UNITS LAB L501.2450 73-393 U/L Normal LIPASE 220 Performed By: #### L500.4050, L501.2450 #### [facility] [address] [place], [place], [id number] ALCOHOL, BLOOD Collected: 10/10/2017 Status: F Source: [facility] (MEDICAL)-SERUM 2:20 PM [facility] REPOSITORY TYPE CODE TESTS RESULT OUT OF RANGE REFERENCE UNITS LAB L501.9100 mg/dL Normal SERUM 89.0 ETOH Result Comment: The serum:whole blood ethanol ratio is approximately 1.14 and varies slightly with hematocrit. Medical Alcohol reference interval and critical value in non-tolerant individuals; 50 - 100 Impairment 100 Intoxication 100 - 250 Severe Poisoning 250 - 400 Deep/possible fatal coma Performed By: #### L501.9100 #### [facility] [address] [place], [place], [id number] CHEST 1 VIEW Observed: 10/10/2017 Status: F Source: [place] (PORTABLE) 2:14 PM [facility] REPOSITORY [facility] Imaging Services [address] [place] [address] Chest 1 View (Portable) MR#: [id number] Acct: [id number] Name: ROBYN FIELDS Rep #: [id number] : 1960 F 57 From: Javed Aquino MD PCP: OUT OF TOWN DOCTOR Status: REG ER Study: Chest 1 View (Portable) Date of Exam: 10/10/17 Exam# [id number] Ordering Dr: Cuong Hogan MD STUDY: X-RAY CHEST REASON FOR EXAM: Female, 57 years old. Cough and chest pain. TECHNIQUE: Single AP portable view. COMPARISON: None available. FINDINGS: EKG wires overlie upper chest. The lungs appear well ventilated but show patchy ill-defined opacity in the right lung base, atelectasis versus pneumonia. Mild elevation right diaphragm seen. There is no demonstrated pleural abnormality. No large gross pneumothorax suggested. Normal size heart. Trachea near midline. Normal mediastinum and ladonna. Normal visualized pulmonary arteries. Normal visualized aortic arch and descending thoracic aorta. Normal visualized thoracic spine, ribs, clavicles and shoulders. There is no demonstrated abnormality of the visualized soft tissue structures of the upper abdomen. No subdiaphragmatic free air seen grossly. RAD/Chest 1 View (Portable) IMPRESSION: Right lung base heterogeneous opacity, atelectasis versus pneumonia. Clinical correlation follow-up recommended with repeat chest in 4-6 weeks after treatment to demonstrate complete clearing to exclude low probability neoplasm. 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 ALLERGIES ALLERGIES DATE TYPE / CODE NAME / CODE REACTION SEVERITY SOURCE 02/17/2018 Drug sulfamethoxa Rash Unknown [facility]160 zole/[id number] Hospital 25254(SNOMED 827(RXNORM) Repository CT) 02/17/2018 Drug trimethoprim Rash Unknown [facility] Allergy/4160 /[id number]( Hospital 78409(SNOMED RXNORM) Repository CT) ENCOUNTERS ENCOUNTERS ADMIT/DISCHARGE ACCOUNT NUMBER ADMITTING ENCOUNTER LOCATION SOURCE CLASS 02/17/2018/02/19/20 [id number] Emergency [facility] ding:ED Repository 01/30/2018/02/01/20 [id number] Emergency [address] ding:ED Repository 01/07/2018 [id number] Ambulatory [facility] Repository 01/06/2018 [id number] Emergency [facility] EDRoom: 2A System 444Bed: Repository [id number] 12/31/2017 [id number] Emergency [facility] EDRoom: 2A System 444Bed: Repository [id number] 12/31/2017 [id number] [facility] 12/26/2017 [id number] Inpatient [facility] [employer] Encounter 2ERoom: System 8Y778Urt: Repository [id number] 12/26/2017 [id number] Ambulatory [facility] Repository 12/24/2017 [id number] Ambulatory [facility] Repository 12/24/2017 [id number] Ambulatory [facility] Repository 12/23/2017 [id number] Ambulatory [facility] Repository 12/22/2017 [id number] Ambulatory [facility] Repository ng:H.JK 12/19/2017 [id number] Ambulatory [facility] Repository 11/29/2017 [id number] Ambulatory [facility] Repository 11/27/2017 [id number] [facility] Rep[facility] 11/06/2017 [id number] [facility] Repository 10/15/2017 [id number] [facility] Repository 10/11/2017/10/12/19 [id number] Emergency [facility] ding:ED Repository 10/10/2017/10/11/19 [id number] Emergency [facility] [address] [facility] ding:ED Repository 10/10/2017 [id number] Ambulatory BMSBuilding: [facility] BMS.WIP [facility] Repository 09/03/2017 [id number] Ambulatory [facility] Repository 06/26/2017 [id number] Ambulatory [facility] Repository 05/02/2017 [id number] Ambulatory [facility] Repository 04/23/2017 [id number] Ambulatory [facility] Repository 02/20/2017 [id number] Ambulatory [facility] Repository PAYERS PAYERS ENCOUNTER GUARANTOR PAYER SUBSCRIBER SOURCE 02/17/2018 ROBYN A Primary ROBYN A [facility] [id number] Insurance:[facility]: [address] [id number], Number: Repository [place] [address]Nfq: [id number] Date:6858-12-20DF BOX () [address] [address]WP: 02/17/2018 Secondary NOT GIVENUNK [facility] Insurance:SELF PAY [facility] Number: Effective Repository Date:2018-02-17 01/30/2018 ROBYN A Primary ROBYN A [facility] [id number] Insurance:[facility]: [address] [id number] Hospitals Elyria Medical Center, Number: Repository [place] [address]Bub: [id number] Date:4589-07-45AF [address]OX () [address], [place] [address]HG: 01/30/2018 Secondary NOT GIVENUNK [facility] Insurance:SELF PAY [facility] Number: Effective Repository Date:2018-01-30 01/07/2018 Robyn A Primary Robyn A [facility]: System [id number] [facility] [id number] Repository [place] Number: [place], [place]: [place] [address]Jrn: (HP) 01/06/2018 Robyn A Primary Robyn A [facility] [employer] [place]: [facility] HealthcarePolicy [id number] Repository [place] Number: [place], Date: [place] [address]Koz: (HP) 12/31/2017 Robyn A Primary Robyn A [facility] [employer] [place]OB: Insurance[facility] HealthcarePolicy [id number] Repository [place] Number: [place] [address], Date: [place] [address]Gfz: (HP) 12/31/2017 Robyn A Primary Robyn A [facility] [employer] [place]OB: Insurance[facility] HealthcarePolicy [id number] Repository [place] Number: [place], Date: [place] [address]Ows: (HP) 12/26/2017 Robyn A Primary Insurance:Self Robyn A [employer] [place]OB: PayPolicy Number: [place]: System [id number] Effective Date: [id number] [place]ository [place], [place] [address]Pit: (HP) 12/26/2017 Robyn A Primary Robyn A [facility] [employer] [place]OB: Insurance[facility] HealthcarePolicy [id number] Repository [place] Number: [place] [address], Date: [place] [address]Sqo: (HP) 12/24/2017 Robyn A Primary Robyn A [facility] [employer] [place]OB: Insurance[facility] HealthcarePolicy [id number] Repository [place] Number: [place], [place]: [place] [address]Opo: (HP) 12/24/2017 Robyn A Primary [facility] [id number] Repository [place] Number: Effective [address], Date: [place] [address]Yie: () 12/23/2017 Robyn A Primary [facility] [id number] Repository [place] Number: Effective [place], [place]: [place] [address]Pgj: () 12/22/2017 ROBYN A Primary Insurance:[facility] ROBYN A [place] [id number] [facility] [place] Number: Repository [place], [id number] [address]Mli: Date:[address], [place] () [address]BS: 12/19/2017 Robyn A Primary Robyn A [facility] [employer] [place]OB: Insurance:[facility] System [facility] [id number] Repository [place] Number: [place], Date: [place] [address]Dsh: () 11/29/2017 Robyn A Primary [facility] [id number] Repository [place] Number: Effective [address], Date: [place] [address]Drj: () 11/27/2017 Robyn A Primary [facility] [id number] Repository [place] Number: Effective [address], Date: [place] [address]Oyq: () 11/06/2017 Robyn A Primary [facility] System [id number] [facility] [id number] Repository [place] Number: Effective [place], Date: [place] [address]Mxe: () 10/15/2017 Robyn A Primary [facility] System [id number] [facility] [id number] Repository [place] Number: Effective [place], Date: [place] [address]Ens: () 10/11/2017 ROBYN A Primary ROBYN A [facility] [id number] Insurance:[facility]: [facility] [address]Rxkyan [id number] Hospitals [facility], Number: Repository [place] [id number]: [id number] Date:0823-67-45SW BOX () [address]ETGYVSTEV[place] [phone]: 10/11/2017 Secondary NOT GIVENUNK [facility] Insurance:SELF PAY [facility] Number: Effective Repository Date:2017-10-11 10/10/2017 ROBYN A Primary ROBYN A [facility] [id number] Insurance:[facility]: [place] [id number] [id number] Hospitals [facility]ly[facility], Number: Repository [place] [id number]: [id number] Date:1858-85-06UX BOX () [address], [place] [address]QJ: 10/10/2017 Secondary NOT GIVENUNK [facility] Insurance:SELF PAY [facility] Number: Effective Repository Date:2017-10-10 10/10/2017 ROBYN A Primary ROBYN A Mega [id number] Insurance:[facility]: [address] [id number] [facility] [place] Number: Repository , [place] [address]Omc: [id number] Date:8206-83-83FM BOX () [place], [place] [address]JO: 10/10/2017 Secondary NOT GIVENUNK [facility] Insurance:SELF PAY [facility] Number: Effective Repository Date:2017-10-10 09/03/2017 Robyn A Primary Robyn A [employer] [place]OB: Insurance[facility] Center[facility]: [facility] Hospitalicy [id number] Repository [place] Number: [place], Date: [place] [address]Xwl: () 06/26/2017 Robyn A Primary Robyn A [employer] [place]OB: Insurance:[employer] [facility] Hospital[facility]: System HealthcarePolicy [id number] Repository [place] Number: [place], Date: [place] [address]Kgw: () 05/02/2017 Robyn A Primary Robyn A [employer] Health [place]DOB: Insurance:[employer] [facility] HospitalwoodD[facility]: System HealthcarePolicy [id number] Repository [place] Number: [place], Date: [place] [address]Rya: () 04/23/2017 Robyn A Primary Robyn A [employer] [facility] HospitalwoodD[facility]: Insurance:[employer] [facility] HospitalwoodD[facility]: System HealthcarePolicy [id number] Repository [place] Number: Effective [place], Date: [place] [address]Xbk: () 02/20/2017 Robyn A Primary Robyn A [employer] [place]OB: Insurance:[employer] [facility] HospitalwoodDOB: System HealthcarePolicy [id number] Repository [place] Number: Effective [place], Date: [place] [address]Lyn: ()
== END 2018-01-31 14:12 | disposition home or self-care (01) ==
PROVIDERS: Emergency Provider Emergency Medicine
DX: F32.9 Major depressive disorder, single episode, unspecified (principal); R45.851 Suicidal ideations; I10 Essential (primary) hypertension; E78.5 Hyperlipidemia, unspecified; Z79.899 Other long term (current) drug therapy
CPT/HCPCS: 36415; 80053; 80307; 80320; 85025; 93005; 99284; G0480

== ENCOUNTER 2018-02-17 15:28 | Emergency (ER) | payer OTHER, SELFPAY ==
[2018-02-17] VITALS (11 sets, daily range): BP systolic 113–166; BP diastolic 70–91; PULSE 90–117; RESP 12–20; TEMP 36.2–36.9; O2SAT 90–98; BMI 29.2
--- NOTE | 2018-02-17 15:45 | ED.DCSUM_ITS ---
- ER Visit Summary Date of Service: 02/17/18 Chief Complaint: Alcohol intoxication/suicidal ideation History of Present Illness: The patient is a 57 F who presents with alcohol intoxication and then she tells us that she does not want to live anymore. She states that she has been drinking a pint of vodka per day for the past 2 days. She states that she does not want to live. Her brother committed suicide in October. She states that since the holidays are starting to come around she has been feeling more depressed. She has never tried to hurt herself in the past. She has never been admitted to a psychiatric facility previously. She states that she has not had any problems with drinking alcohol prior to the past couple of days. Physical Examination: Vital signs reviewed. HEENT exam unremarkable. Heart is tachycardic and regular rhythm without murmurs. Lungs are clear to auscultation. Abdomen is soft and nontender. Extremities reveal no edema. Skin exam normal. Neurologic exam normal. The patient does smell of alcohol. She does admit to being suicidal. She does appear depressed and tearful. Test Results: Screening laboratory examinations will be performed. Emergency Department Course and Treatment: Patient will be medically cleared. Her alcohol level likely will be elevated. She will be observed until clinically sober. I did give her Ativan to help calm her down as she was trying to leave the emergency department. Patient will then be evaluated by crisis. Treatment Plan: [] Disposition: Pending Impression: Suicidal ideation, alcohol intoxication This note was generated with [employer] dictation software. It may contain incorrect words, spelling, and punctuation that were not noted in review of the chart prior to signing ED Disposition - Plan for ED Patient: Chief Complaint: Suicidal Referrals: Care Physician,No Primary [Primary Care Provider] -
[2018-02-17 16:03] LABS: Absolute Lymphocyte Count 3.62 X10^3/ul (0.83-4.51); Eosinophil# 0.12 X10^3/uL; Eosinophils% 1.2 % (0-5); Hemoglobin 13.2 g/dl (12.0-15.0); Lymphocyte # 3.62 X10^3/ul (4.0); Lymphocyte % 34.9 % (19-41); Mean Corp Hgb Conc 30.7 g/gl (32-36); Mean Corpuscular Hgb 25.4 pg (27.0-32.0); Mean Corpuscular Volume 82.7 fL (81-99); Mean Platelet Vol. 8.9 fl (6.2-12.0); Monocyte% 4.8 % (0-10); Neutrophil # 5.99 X10^3/uL (2.7-7.7); Neutrophil % 57.7 % (47-70); Platelet Count 334 K/mm3 (150-450); RBC Distribution Width CV 17.3 % (11.6-14.6); RBC Distribution Width SD 52.9 fl (35.1-43.9); White Blood Count 10.4 K/mm3 (4.4-11.0)
[2018-02-17 16:06] LABS: POSITIVE COUNT NO; POSITIVE DIFFERENTIAL NO; POSITIVE MORPHOLOGY NO
[2018-02-17] MEDS: LORazepam 1 MG Tablet PO (16:16)
[2018-02-17 16:18] LABS: ALB/GLOB Ratio 0.9 RATIO (0.9-2.4); AST(SGOT) 27 U/L (15-37); Alanine Aminotransfer ALT/SGPT 28 U/L (13-56); Albumin, Serum 4.4 g/dL (3.2-5.0); Alkaline Phosphatase 113 U/L (45-117); Anion Gap 17 (5-15); BUN 18 mg/dL (7-18); BUN/Creat Ratio 21.6 RATIO (10-20); Calcium,Total 8.7 mg/dL (8.5-10.1); Chloride 105 mmol/L (98-107); Creatinine, Serum 0.83 mg/dL (0.55-1.02); EST Glomerular Filtration Rate 75 mL/min (>60); Est Glom Filt Rate - Afr Amer 90 mL/min (>60); Estimated Creatinine Clearance 58.43 ml/min; Globulin 4.8 g/dL (2.2-4.2); Glucose 79 mg/dL (74-106); Potassium 3.8 mmol/L (3.5-5.1); Protein, Total 9.2 g/dL (6.4-8.2); Sodium Level 140 mmol/L (136-145)
[2018-02-17 16:20] LABS: Amphetamine Urine VISTA NEGATIVE (<1000 ng/mL); Barbiturate Urine VISTA NEGATIVE (< 200 ng/mL); Benzodiazepine Urine VISTA NEGATIVE (< 200 ng/mL); Cocaine Urine VISTA NEGATIVE (< 300 ng/mL); Ecstacy Urine VISTA NEGATIVE (< 500 ng/mL); Methadone Urine VISTA NEGATIVE (< 300 ng/mL); PCP Urine VISTA NEGATIVE (< 25 ng/mL); THC Urine VISTA NEGATIVE (< 50 ng/mL); Vista UDS pH Range 7
--- NOTE | 2018-02-17 16:20 | ED.RN ---
PT CALM, BUT AGITATED. ATTEMPTING TO LEAVE. REDIRECTING NOT EFFECTIVE. EMOTIONAL SUPPORT NOT EFFECTIVE. THIS NURSE AND 4 OTHER STAFF MEMBERS AND HRO WITH PT IN HALLWAY. PT STS WOULD STAY IN ROOM IF GIVEN SOMETHING TO CALM DOWN. GIVEN ATIVAN, AND PT ATTEMPTED TO ELOPE. RESTRAINTS APPLIED PER PHYSICIAN ORDER. WILL CONT TO MONITOR CLOSELY AND REMOVE RESTRAINTS ABLE.
--- NOTE | 2018-02-17 22:37 | ED.RN ---
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
[2018-02-18] VITALS (8 sets, daily range): BP systolic 116–154; BP diastolic 72–80; PULSE 69–91; RESP 12–18; O2SAT 95–100
--- NOTE | 2018-02-18 00:12 | ED.RN ---
STAFF MEMBER AT BEDSIDE FOR ONE ON ONE OBSERVATION. POLO FROM CRISIS IS HERE TO EVALUATE THE PT.
--- NOTE | 2018-02-18 00:23 | EKG12_ITS ---
Test Reason : [facility] [place] Blood Pressure : / mmHG Vent. Rate : 102 BPM Atrial Rate : 102 BPM P-R Int : 150 ms QRS Dur : 084 ms QT Int : 386 ms P-R-T Axes : 028 077 078 degrees QTc Int : 503 ms Sinus tachycardia with occasional Premature ventricular complexes Otherwise normal ECG Confirmed by DEEPTHI CARSON, RADHA ([id number]), manager editorial ABIMAEL CLARK ([id number]) on 02/21/2018 1:28:40 PM Referred By: KELLE Confirmed By:RADHA LACEY MD
[2018-02-18 01:48] LABS: Bacteria 0 SEEN /hpf (None Seen); Mucous, Urine 0 SEEN /hpf (<or=2+); White Blood Cells 0 SEEN /hpf (0-5)
[2018-02-18 04:04] LABS: Color, Urine Yellow (Yellow); Urine Bilirubin Dipstick Negative (Negative); Urine Clarity Sl Cldy (Clear)
[2018-02-18 04:05] LABS: Glucose, Dipstick Normal (Normal); Ketone-Dipstick Negative (Negative); Leukocyte Esterase-Dipstick Negative /ul (Negative); Nitrite-Dipstick Negative (Negative); Occult Blood-Urine 25 /ul (Negative); Protein-Dipstick 30 mg/dl (Negative); Red Blood Cells-Urine 0-5 SEEN /hpf (0-5); Squamous Epithelial Cells - UA 0-5 SEEN /hpf (5-10); Urine Urobilinogen Normal (Normal)
[2018-02-18 04:06] LABS: Amorphous Sediment 1+
[2018-02-18] MEDS: Clopidogrel Bisulfate 75 MG Tablet PO (08:38)
[2018-02-18] MEDS: FLUoxetine 20 MG Capsule 40 MG PO (08:39)
[2018-02-18] MEDS: Lisinopril 20 MG Tablet PO (08:39)
--- NOTE | 2018-02-18 11:25 | ED.RN ---
PT SITTING UP IN BED WATCHING TV, CUP OF TEA GIVEN PER REQUEST. PT DENIES FURTHER NEEDS, NO SIGNS OF DISTRESS. PT IS CALM AND COOPERATIVE.
--- NOTE | 2018-02-18 11:49 | NURSING ---
CALLED [facility]SEL[facility] TO LET THEM KNOW [facility] IS NOT ACCEPTING PATIENT. WAITING TO HEAR FROM DOMINICK
[2018-02-18] MEDS: Ondansetron ODT 4 MG Tablet PO (17:50)
[2018-02-18] MEDS: Atorvastatin Calcium 80 MG Tablet PO (21:34)
--- OUTSIDE RECORDS SUMMARY | 2018-05-22 09:45 | XMS RPT_ITS ---
:1960 Author Organization [facility] Support Name Relationship Address Phone [facility] Unavailable [address] + [place] [address] ОЛЬГА FIELDS Unavailable Unavailable + [facility] Unavailable [address] + [place] [address] ОЛЬГА FIELDS Unavailable Unavailable + White, Toyin [...] Unavailable Unavailable + [facility] Unavailable [address] + [facility] [place] [address] ОЛЬГА FIELDS Unavailable Unavailable + [facility] Unavailable [address] + [facility] [place] [address] ОЛЬГА FIELDS Unavailable Unavailable + [facility] Unavailable . +[place] [address] ОЛЬГА FIELDS Unavailable Unavailable + White, Toyin [...] Primary Care Unavailable Carlos Celestin Attending Unavailable DE BARKER Attending Unavailable PROVIDER, UNKNOWN Referring Unavailable Mahogany, Sonya Primary Care Unavailable Kishor Lowry Attending Unavailable PROVIDER, UNKNOWN Referring Unavailable Mahogany, Sonya Primary Care Unavailable Kishor Lowry Attending Unavailable PROVIDER, UNKNOWN Referring Unavailable Mahogany, Sonya Primary Care Unavailable Kishor Lowry Attending Unavailable PROVIDER, UNKNOWN Referring Unavailable Mahogany, Sonya Primary Care Unavailable OsapayEllaola Attending Unavailable PROVIDER, UNKNOWN Referring Unavailable Mahogany, Sonya Primary Care Unavailable Nasima Borrego Attending Unavailable PROVIDER, UNKNOWN Referring Unavailable Mahogany, Sonya Primary Care Unavailable Nasima Borrego Attending Unavailable PROVIDER, UNKNOWN Referring Unavailable Mahogany, Sonya Primary Care Unavailable Osapay Imola Attending Unavailable PROVIDER, UNKNOWN Referring Unavailable [...] Primary Care Unavailable Kishor Lowry Attending Unavailable Chace Wahl Attending Unavailable PROVIDER, UNKNOWN Referring Unavailable Mahogany, Sonya Primary Care Unavailable PROVIDER, UNKNOWN Referring Unavailable Mahogany, Sonya Primary Care Unavailable Al Zavala Attending Unavailable Chace Wahl Attending Unavailable PROVIDER, UNKNOWN Referring Unavailable Mahogany, Sonya Primary Care Unavailable PROVIDER, UNKNOWN Referring Unavailable Mahogany, Sonya Primary Care Unavailable PROVIDER, UNKNOWN Attending Unavailable PROVIDER, UNKNOWN Referring Unavailable Mahogany, Sonya Primary Care Unavailable ElAnnemarie medinant Attending Unavailable Lefty Souza Attending Unavailable PROVIDER, UNKNOWN Referring Unavailable Mahogany, Sonya Primary Care Unavailable Jim Celeste Attending Unavailable PROBLEMS PROBLEMS DATE TYPE CONDITION / CODE ATTENDING STATUS SOURCE Admitting Hemorrhage of anus Osaflori, Imola [facility] [employer] 8 Diagnosis and rectum / System K62.5(ICD-10) Repository Admitting Essential (primary) Alisha Jadiel [employer] 8 Diagnosis hypertension / System I10(ICD-10) Repository Admitting Nicotine dependence, Alisha, Jadiel [employer] 8 Diagnosis unspecified, System uncomplicated / Repository F17.200(ICD-10) Admitting Anxiety disorder, Alisha, Jadiel [employer] 8 Diagnosis unspecified / System F41.9(ICD-10) Repository Admitting Major depressive AlishaPrimo.iont [employer] 8 Diagnosis disorder, single System episode, unspecified Repository / F32.9(ICD-10) Admitting Anemia, unspecified / Meetmealsadam, Jadiel [place] [employer] 8 Diagnosis D64.9(ICD-10) System Repository Admitting nursing home (current) Annemarie Britont [employer] 8 Diagnosis use of aspirin / System Z79.82(ICD-10) Repository Admitting Other psychoactive Alisha Jadiel [place] [facility] 8 Diagnosis substance abuse, in System remission / Repository F19.11(ICD-10) Admitting Psoriasis, Alisha, Jadiel [place] [facility] 8 Diagnosis unspecified / System L40.9(ICD-10) Repository Admitting Acquired absence of [place], Jadiel [place] [employer] 8 Diagnosis both cervix and System uterus / Repository Z90.710(ICD-10) Admitting Allergy status to Meetmealsadam, Jadiel [place] [employer] 8 Diagnosis sulfonamides status / System Z88.2(ICD-10) Repository Admitting Nicotine dependence, Unknown Active [facility] 8 Diagnosis cigarettes, System uncomplicated / Repository F17.210(ICD-10) Admitting Unsp fracture of unsp Unknown Active [facility] 8 Diagnosis thoracic vertebra, System init for clos fx / Repository S22.009A(ICD-10) Admitting Pain in thoracic Unknown Active [facility] 8 Diagnosis spine / M54.6(ICD-10) System Repository Admitting Other spondylosis, Unknown Active [facility] 8 Diagnosis lumbar region / System M47.896(ICD-10) Repository Admitting Overexertion from Unknown [facility] 8 Diagnosis strenuous movement or System load, init / Repository X50.0XXA(ICD-10) Admitting Dorsalgia, Unknown [facility] 8 Diagnosis unspecified / System M54.9(ICD-10) Repository Admitting Acute sinusitis, Zavala, [facility] 8 Diagnosis unspecified / Al System J01.90(ICD-10) Repository Admitting Acute upper [place], [facility] 8 Diagnosis respiratory Al System infection, Repository unspecified / J06.9(ICD-10) Admitting Athscl heart disease [place] [address] Diagnosis of [place] cor art w Al System unsp ang pctrs / Repository I25.119(ICD-10) Admitting Melena / Zavala, [facility] 8 Diagnosis K92.1(ICD-10) Al System Repository Admitting Hemorrhagic disord [facility] 8 Diagnosis d/t extrinsic Al System circulating Repository anticoagulants / D68.32(ICD-10) Admitting Gastrointestinal [place], [facility] 8 Diagnosis hemorrhage, Al System unspecified / Repository K92.2(ICD-10) Admitting Iron deficiency 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 8 Diagnosis without obstruction Al System or gangrene / Repository K44.9(ICD-10) Admitting Angiodysplasia of Lucas [employer] 8 Diagnosis stomach and duodenum Al System without bleeding / Repository K31.819(ICD-10) Admitting nursing home (current) Lucas [employer] 8 Diagnosis use of Al System antithrombotics/antip Repository latelets / Z79.02(ICD-10) Admitting Presence of coronary Lucas [employer] 8 Diagnosis angioplasty implant In [employer] and graft / Repository Z95.5(ICD-10) Admitting Gastro-esophageal Lucas [employer] 8 Diagnosis reflux disease with Al System esophagitis / Repository K21.0(ICD-10) Admitting Obesity, unspecified Lucas [employer] 8 Diagnosis / E66.9(ICD-10) Al System Repository Admitting Body mass index (BMI) Lucas [employer] 8 Diagnosis 30.0-30.9, adult / Al System Z68.30(ICD-10) Repository Admitting Adverse effect of Zavala [employer] 8 Diagnosis antithrombotic drugs, In [employer] initial encounter / Repository T45.525A(ICD-10) Admitting Right upper quadrant Chace Wahl [employer] 8 Diagnosis pain / R10.11(ICD-10) System Repository Admitting Acute posthemorrhagic Chace Wahl [employer] 8 Diagnosis anemia / D62(ICD-10) System Repository Admitting Unknown / Jim Celeste [facility] [address] diagnosis UNK(Unknown) [facility] [place] Repository Admitting Personal history of Nasima Borrego [employer] 8 Diagnosis pneumonia (recurrent) System / Z87.01(ICD-10) Repository Admitting Insomnia, unspecified Nasima Borrego [employer] 8 Diagnosis / G47.00(ICD-10) System Repository Admitting Other nonspecific Nasima Borrego [employer] 8 Diagnosis abnormal finding of System lung field / Repository R91.8(ICD-10) Unknown F10.10 - Alcohol [place], Active [place] 8 abuse, uncomplicated [facility] / F10.10(ICD-10) Hospital Repository Admitting Major depressive [place] [address] Diagnosis disorder, recurrent, Kishor System moderate / Repository F33.1(ICD-10) Admitting Alcohol abuse, in [place] [address] Diagnosis remission / Kishor System F10.11(ICD-10) Repository Admitting Oth bacterial agents [place] [address] Diagnosis as the cause of Kishor System diseases classd Repository elswhr / B96.89(ICD-10) PROCEDURES PROCEDURES No Procedure Records FoundRESULTS RESULTS 12 LEAD ELECTROCARDIOGRAM Observed: 02/21/2018 Status: F Source: [place] 1:28 PM [facility] [place] [facility] Cardiovascular Services [address] [place] [address] 12 Lead EKG 02/18/18 0121 MR#: [id number] Acct: [id number] Name: ROBYN FIELDS Rep #: [id number] : 1960 57 From: Dennis Tariq MD Attending Dr: Status: DEP ER Ordering Dr: Kaitlin Morrissey MD Date: 02/18/18 Location: ED Sex: F C Admitted: Test Reason : MHC Blood Pressure : / mmHG Vent. Rate : 102 BPM Atrial Rate : 102 BPM P-R Int : 150 ms QRS Dur : 084 ms QT Int : 386 ms P-R-T Axes : 028 077 078 degrees QTc Int : 503 ms Sinus tachycardia with occasional Premature ventricular complexes Otherwise normal ECG Confirmed by DENNIS TARIQ MD ([id number]), book editor ABIMAEL CLARK ([id number]) on 02/21/2018 1:28:40 PM Referred By: KELLE Confirmed By:DENNIS TARIQ MD 02/21/18 1328 Date Dennis Tariq MD CC: No Primary Care Physician; Kaitlin Morrissey MD; Gilberto Greene MD Signed EMERGENCY DEPARTMENT Observed: 02/18/2018 Status: C Source: [place] SUMMARY 7:30 AM [facility] [place] [facility] Medical Records Department [address] [place] [address] Emergency Department Summary 02/17/18 1539 MR#: [id number] Acct: [id number] Name: ROBYN FIELDS Rep #: [id number] : 1960 57 From: Gilberto Greene MD PCP: Care Physician, No Primary Status: REG ER ADDENDUM by Dwaine Noriega MD on 02/18/18 at 0730 Patient's case and care was turned over to mt at 0700. We received a call last evening that the psychiatrist at [facility] was concerned choice would experience alcohol withdrawal. [...] crisis the patient has been accepted to [facility] under pink slip that I filled out. Unfortunately the psychiatrist that has accepted her once the patient to be in the emergency room for the next 24 hours at a concerns that she may develop delirium tremens. Per crisis [facility] is the only facility that can take [...] alcohol intoxication This note was generated with [employer] dictation software. It may contain incorrect words, [...] your Primary Care Provider. Call [facility] ([phone]) or report to the closest Emergency Room. Call 911 if necessary. 02/17/18 1430 <Electronically signed by Gilberto Greene MD> Date Gilberto Greene MD Cosigner Signature (If Indicated): Date CC: No Primary Care Physician ALCOHOL, BLOOD Collected: 02/17/2018 Status: F Source: [place] ([facility]ICAL[place] 9:50 PM [facility] [place] TYPE CODE TESTS RESULT OUT OF [...] fatal coma Performed By: #### L501.9100 #### [facility] [address] [facility] [place], [place], [id number] URINE DRUG SCREEN Collected: 02/17/2018 Status: F Source: [place] (VISTA) 4:00 PM [facility] [place] [facility] TYPE CODE TESTS RESULT OUT OF [...] Normal NEGATIVE Performed By: #### L505.5000 #### [facility] [address] [place], [address] URINALYSIS, COMPLETE Collected: 02/17/2018 Status: F Source: [place] 4:00 PM [facility] [place] [facility] Order Comment: Order Date: 02/18/18 How [...] Normal AMORPHOUS Performed By: #### L400.0001 #### [facility] [address] [place], [place], [address] CBC W/DIFF, AUTOMATED Collected: 02/17/2018 Status: F Source: [place] 3:50 PM [facility] [place] [facility] TYPE CODE TESTS RESULT OUT OF [...] Lymph 3.62 Performed By: #### L100.0100 #### [facility] [address] [place], [address] COMPREHENSIVE METABOLIC Collected: 02/17/2018 Status: F Source: [facility] 3:50 PM [facility] [place] TYPE CODE TESTS RESULT OUT OF [...] GAP 17 Performed By: #### L500.4050 #### [facility] [address] [place], [place], [address] ALCOHOL, BLOOD Collected: 02/17/2018 Status: F Source: [place] ([facility]ER[facility] 3:50 PM [facility] [place] TYPE CODE TESTS RESULT OUT OF [...] fatal coma Performed By: #### L501.9100 #### [facility] [address] [facility] [place], [place], [address] 12 LEAD ELECTROCARDIOGRAM Observed: 02/04/2018 Status: F Source: [place] 3:43 PM [facility] Cardiovascular Services [address] [place] [address] 12 Lead EKG 01/30/18 2338 MR#: [id number] Acct: [id number] Name: ROBYN FIELDS Rep #: [id number] : 1960 57 From: Chace Zavala MD Attending Dr: Status: DEP ER Ordering Dr: Carlos Celestin MD Date: 01/30/18 Location: ED Sex: F C Admitted: Test Reason : MHC Blood Pressure : / mmHG Vent. Rate [...] Abnormal ECG Confirmed by SALLY CARSON, CHACE ([id number]), book editor ABIMAEL CLARK ([id number]) on 02/04/2018 3:42:26 PM Referred By: MARY Confirmed By:CHACE ZAVALA MD 02/04/18 1542 Date Chace Zavala MD CC: No Primary Care Physician; Carlos Celestin MD Signed DISCHARGE INSTRUCTION Observed: 01/31/2018 Status: F Source: [place] 4:17 PM [facility] Medical Records Department [address] [place] [address] Discharge Instruction 01/31/18 1410 MR#: [id number] Acct: [id number] Name: ROBYN FIELDS Rep #: [id number] : 1960 57 From: Yunior Glass MD [...] your Primary Care Provider. Call [facility] ([phone]) or report to the closest Emergency Room. Call 911 if necessary. 01/31/18 1617 <Electronically signed by Yunior Glass MD> Date Yunior Glass MD Cosigner Signature (If Indicated): Date CC: No Primary Care Physician EMERGENCY DEPARTMENT Observed: 01/31/2018 Status: C Source: [place] SUMMARY 2:09 PM [facility] [place] [facility] Medical Records Department [address] [place] [address] Emergency Department Summary 01/31/18 0316 MR#: [id number] Acct: [id number] Name: ROBYN FIELDS Rep #: [id number] : 1960 57 From: Carlos Celestin MD PCP: Care Physician, No Primary Status: REG ER ADDENDUM by Yunior Glass MD on 01/31/18 at 1409 Patient doing well on repeat exam at 1408. I discussed her case with Jasper Davis from counseling center. He is current with her being discharged [...] ideation Depression This note was generated with [employer] dictation software. It may contain incorrect words, [...] your Primary Care Provider. Call [facility] ([phone]) or report to the closest Emergency Room. Call 911 if necessary. 01/31/18 0318 <Electronically signed by Carlos Celestin MD> Date Carlos Celestin MD Cosigner Signature (If Indicated): Date CC: No Primary Care Physician URINE DRUG SCREEN Collected: 01/31/2018 Status: F Source: [place] ([place]) 4:10 AM [facility] [place] [facility] TYPE CODE TESTS RESULT OUT OF [...] Normal NEGATIVE Performed By: #### L505.5000 #### [facility] [address] [place], [address] CBC W/DIFF, AUTOMATED Collected: 01/30/2018 Status: F Source: [place] 11:30 PM [facility] [place] [facility] TYPE CODE TESTS RESULT OUT OF [...] Lymph 3.08 Performed By: #### L100.0100 #### [facility] [address] [place], [address] COMPREHENSIVE METABOLIC Collected: 01/30/2018 Status: F Source: [facility] 11:30 PM [facility] [place] [facility] TYPE CODE TESTS RESULT OUT OF [...] GAP 10 Performed By: #### L500.4050 #### [facility] [address] [place], [place], [address] ALCOHOL, BLOOD Collected: 01/30/2018 Status: F Source: [place] ([facility] 11:30 PM [facility] [place] [facility] TYPE CODE TESTS RESULT OUT OF [...] fatal coma Performed By: #### L501.9100 #### [facility] [address] [place], [place], [address] FECAL OCCULT,STOOL Collected: 01/06/2018 Status: F Source: [facility] SINGLE SPEC 11:09 AM SYSTEM REPOSITORY TYPE CODE TESTS RESULT OUT OF REFERENCE UNITS RANGE LAB FOCC Negative NA Fecal POSITIVE Occult,Stool Single Spec Performed By: #### FOCC #### [facility] [address] [place] [facility] [address] [place] [address] HEMOGRAM W/ AUTODIFF Collected: 01/06/2018 Status: F Source: [facility] 11:09 AM SYSTEM REPOSITORY TYPE CODE TESTS [...] Baso Cnt Normal 0.0 Performed By: #### HEMDF, BMP3 #### [facility] [address] [place] [address] BASIC METABOLIC PANEL Collected: 01/06/2018 Status: F Source: [facility] 11:09 AM SYSTEM REPOSITORY TYPE CODE TESTS [...] mg/dL Normal Calcium 8.9 Performed By: #### HEMDF, BMP3 #### [facility] [address] [place] [address] ED PROVIDER NOTE Observed: 01/06/2018 Status: F Source: [facility] 10:01 AM SYSTEM REPOSITORY [facility] ED eMERGENCY dEPARTMENT eNCOUnter Pt Name: Robyn Fields Birthdate 1960 Date of evaluation: 01/06/2018 Provider: CHETNA Somers CNP Patient seen in conjunction with Dr. Brito [...] UPPER GASTROINTESTINAL ENDOSCOPY 12/27/2017 Dr Addie Rich [facility] CURRENT MEDICATIONS Previous Medications ASPIRIN 81 MG [...] Comments: Rectal exam performed with female RN streetcar operator at bedside, gail Musculoskeletal: Normal range of [...] within normal limits Narrative: Test Performed by [facility], [address] [place] [address] BASIC METABOLIC PANEL - Abnormal; Notable for the following: Chloride 108 (*) Glucose 102 (*) All other components within normal limits Narrative: [facility], [address] [place] [address] BLOOD OCCULT STOOL SCREEN #1 Narrative: Test Performed by [facility], [address] [place] [address] All other labs were within normal range or not returned as of this dictation. EMERGENCY DEPARTMENT COURSE and DIFFERENTIAL DIAGNOSIS/MDM: Vitals: Vitals: 01/06/18 1005 01/06/18 1006 01/06/18 1223 BP: (!) 136/94 (!) 155/79 Pulse: 101 89 Resp: 18 Temp: 97.7 ?F (36.5 ?C) TempSrc: Temporal [...] will follow up with Dr. Valencia her mobile nurse and also her PCP in one to [...] PM PATIENT REFERRED TO: Sonya Vides MD [address] [place] [id number] Call in 1 day DISCHARGE MEDICATIONS: New [...] PROVIDER NOTE Observed: 01/06/2018 Status: F Source: [facility] 10:01 AM SYSTEM REPOSITORY Emergency Department Encounter [facility] ED Patient: Robyn Fields : [...] dictations but occasionally words are mis-transcribed.) Jadiel Brito DO [employer] Jadiel Brito DO 01/06/188 URINALYSIS,MACRO Collected: 12/31/2017 Status: F Source: [facility] 4:34 PM SYSTEM REPOSITORY TYPE CODE TESTS RESULT OUT OF REFERENCE UNITS RANGE LAB APPUR Clear NA Appearance CLEAR LAB COLUR Lt. Yellow NA Color YELLOW LAB USG 1.005-1.030 NA Specific Normal [place],Urine 1.014 LAB UPH 5.0-8.0 NA pH,Urine Normal 6.5 LAB ULUK Negative NA Leukocytes NEG LAB UNIT Negative NA Nitrites NEG LAB UPRO Negative mg/dL Total Protein,Urine NEG LAB UGLU Negative mg/dL Glucose,Urine NEG LAB UKET Negative mg/dL Ketone,Urine NEG LAB UURO 0-1 mg/dL Urobilinogen 0.2 LAB UBIL Negative NA Bilirubin,Ur NEG LAB UBLD Negative {RBC}/uL Occult Blood,Ur NEG Performed By: #### UAMAC #### [facility] [address] [place] [address] CR SPINE LUMBOSACRAL 2 Observed: 12/31/2017 Status: F Source: [facility] OR 3 VIEWS 4:19 PM SYSTEM REPOSITORY Patient Name: ROBYN FIELDS Diagnostic Radiology Exam Date/Time 12/31/2017 15:41:59 EDT Exam CR Spine Lumbosacral 2 or 3 Views Ordering Physician JULISSA KOTHARI RYAN Accession Number [id number] CPT4 Codes 83629 () Reason For Exam pain Report EXAMINATION: [...] THORACIC 3 Observed: 12/31/2017 Status: F Source: [employer] 4:00 PM SYSTEM REPOSITORY Patient Name: ROBYN FIELDS Diagnostic Radiology Exam Date/Time 12/31/2017 15:41:59 EDT Exam CR Spine Thoracic 3 Views Ordering Physician JULISSA KOTHARI RYAN Accession Number [id number] CPT4 Codes 80862 () Reason For Exam thoracic pain Report [...] as described above. Report Dictated on Workstation: DUSTIN-Fluid Final Dictating Physician: MD THURMAN RISA Signed Date and Time: 12/31/2017 4:02 pm Signed by: MD THURMAN RISA Transcribed Date and Time: 12/31/2017 4:03 HEMOGRAM W/ AUTODIFF Collected: 12/31/2017 Status: F Source: [facility] 3:45 PM SYSTEM REPOSITORY TYPE CODE TESTS [...] Performed By: #### HEMDF, ACET4, CMP3 #### [facility] [address] [place] [address] ACETAMINOPHEN Collected: 12/31/2017 Status: F Source: [facility] 3:45 PM SYSTEM REPOSITORY TYPE CODE TESTS RESULT OUT OF REFERENCE UNITS RANGE LAB ACET3 10.0-30.0 ug/mL Acetaminophen Normal < 10.0 Performed By: #### HEMDF, ACET4, CMP3 #### [facility] [address] [place] [address] COMP METABOLIC PANEL Collected: 12/31/2017 Status: F Source: [facility] 3:45 PM SYSTEM REPOSITORY TYPE CODE TESTS [...] Performed By: #### HEMDF, ACET4, CMP3 #### [facility] [address] [place] [address] ED PROVIDER NOTE Observed: 12/31/2017 Status: F Source: [facility] 2:57 PM SYSTEM REPOSITORY Attestation signed by Kamilah Smith MD at 12/31/2017 9:53 PM I was not consulted regarding the management and/or disposition of this patient. My signature serves to simply satisfy an administrative requirement. [facility] ED eMERGENCY dEPARTMENT eNCOUnter Pt Name: Robyn Fields Birthdate 1960 Date of evaluation: 12/31/2017 Provider: CHETNA Somers CNP I have evaluated this patient on my [...] UPPER GASTROINTESTINAL ENDOSCOPY 12/27/2017 Dr Addie Rich [place] CURRENT MEDICATIONS Discharge Medication List as of [...] None Social History Narrative ? None SCREENINGS [place] Coma Scale Eye Opening: Spontaneous Best Verbal Response: Oriented Best Motor Response: Obeys commands [place] Coma Scale Score: 15 PHYSICAL EXAM (up [...] Ordering Physician JULISSA KOTHARI RYAN Accession Number [id number] CPT4 Codes 53764 () Reason For Exam pain Report EXAMINATION: [...] Ordering Physician JULISSA KOTHARI RYAN Accession Number [id number] CPT4 Codes 45568 () Reason For Exam thoracic pain Report [...] described above. Report Dictated on Workstation: DUSTIN-REMOTE --- Final --- Dictating Physician: MD THURMAN [...] within normal limits Narrative: Test Performed by [facility], [address] [place] [address] COMPREHENSIVE METABOLIC PANEL - Abnormal; Notable for the following: Total Protein 8.3 (*) All other components within normal limits Narrative: Test Performed by [facility], [address] [place] [address] URINALYSIS Narrative: Test Performed by [facility], [address] [place] [address] ACETAMINOPHEN LEVEL Narrative: Test Performed by [facility], [address] [place] [address] All other labs were within normal range [...] We will prescribe a small quantity of Temple, Flexeril and Lidoderm patches. She will follow-up [...] compression fracture of thoracic vertebra, initial encounter ([facility]) DISPOSITION/PLAN DISPOSITION Decision To Discharge 12/31/2017 04:58:49 PM PATIENT REFERRED TO: Sonya Vides MD [address] [place], [place] [id number] Call in 3 days DISCHARGE MEDICATIONS: Discharge [...] HEMOGLOBIN AND Collected: 12/27/2017 Status: F Source: [facility] HEMATOCRIT 4:38 PM SYSTEM REPOSITORY TYPE CODE TESTS RESULT OUT OF REFERENCE UNITS RANGE LAB HGB 11.7-16.0 g/dL Low Hemoglobin 9.7 Result Comment: Post transfusion. LAB HCT 35.0-47.0 % Hematocrit Low 28.8 Performed By: #### HGHCT #### [employer] [address] [place] [address] DISCHARGE SUMMARY Observed: 12/27/2017 Status: F Source: [facility] 2:30 PM SYSTEM REPOSITORY Physician Discharge Summary Dictating Resident: Christina Marie Patient ID: Patient: Robyn Fields Date of : 1960 Age: 57 y.o. Sex: female Acct: [id number] Code Status full code Admit Date: 12/26/2017 Discharge date: 12/27/17 Service, Admitting Physician: [facility] Service, Dr. Wahl Admission Diagnoses: Melena [K92.1] [...] been sent for blood work during a [facility] office visit for cold symptoms and [...] bleeding Procedure: EGD and bx ? Anesthesia: [facility] Surgeons/Assistants: YVETTE VALENCIA MD Estimated Blood Loss: [...] Physician MD CELESTE, KISHOR YOUNG Accession Number [id number] CPT4 Codes 21080 () Reason For Exam R10.11 RUQ pain [...] Your Medications These medications were sent to [address] - P [phone] - F [phone] [place] [address] ? pantoprazole 20 MG tablet Safety Check [...] home PT: No Does patient need home senior care: No If so, does it need to be within 24 hours: No Does patient have any new medications: No Prior auth needed: No Available at discharge: NA Home IV meds: NA Signed: Christina Marie PGY- 2 Pager # [phone] 01/30/2018 BASIC METABOLIC PANEL Collected: 12/27/2017 Status: F Source: [facility] 10:31 AM SYSTEM REPOSITORY TYPE CODE TESTS [...] 9.2 Performed By: #### BMP3M, HEMOG #### [facility] [facility] [address] [place] [address] HEMOGRAM Collected: 12/27/2017 Status: F Source: [facility] 10:31 AM SYSTEM REPOSITORY TYPE CODE TESTS [...] 8.0 Performed By: #### BMP3M, HEMOG #### [facility] [address] [place] [address] Observed: 12/27/2017 Status: F Source: [facility] SURGICAL PATHOLOGY 9:50 AM SYSTEM REPOSITORY [id number] [facility] PATHOLOGY AND LABORATORY MEDICINE [address] [place] [address] Fax - FINAL SURGICAL PATHOLOGY REPORT NAME: ROBYN FIELDS : 1960 57 Y F BILLING NO.: [id number] LOCATION: [place] [address] 2 PROCEDURE 12/27/2017 DATE: SURGEON: YVETTE VALENCIA M.D. [...] characteristics determined by the clinical laboratories of [facility]. They have not been cleared by the [...] negativity on decalcified specimens. Case reviewed at [address] [address]. DEPARTMENT OF PATHOLOGY AND LABORATORY MEDICINE [place], [place] [address] HEMOGLOBIN AND Collected: 12/27/2017 Status: F Source: [facility] HEMATOCRIT 12:07 AM SYSTEM REPOSITORY TYPE CODE TESTS RESULT OUT OF REFERENCE UNITS RANGE LAB HGB 11.7-16.0 g/dL Low Alert Hemoglobin 6.7 LAB HCT 35.0-47.0 % Low Hematocrit 20.9 Performed By: #### HGHCT #### [address] [facility] [facility] [address] [facility] [address] [facility] [address] HEMOGLOBIN AND Collected: 12/26/2017 Status: F Source: [facility] HEMATOCRIT 5:19 PM SYSTEM REPOSITORY TYPE CODE TESTS RESULT OUT OF REFERENCE UNITS RANGE LAB HGB 11.7-16.0 g/dL Low Hemoglobin 7.2 LAB HCT 35.0-47.0 % Low Hematocrit 22.2 Performed By: #### HGHCT, PT #### [employer] [facility] [address] [facility] [address] [facility] [address] PROTHROMBIN TIME Collected: 12/26/2017 Status: F Source: [facility] 5:19 PM SYSTEM REPOSITORY TYPE CODE TESTS [...] Infarction Performed By: #### HGHCT, PT #### [facility] [address] [place] [address] Observed: 12/26/2017 Status: F Source: [employer] TS GEL 11:48 AM SYSTEM REPOSITORY ABO Group: O Rh, Gel: POS Antibody Screen Gel: NEG Performed By: #### TSGL #### [place] [address] [place] [address] #### LRC #### [facility] [address] [place] [address] Observed: 12/26/2017 Status: F Source: [employer] LEUKODEPLETED RED CELLS 11:48 AM SYSTEM REPOSITORY Leukodepleted Red Cells: [id number] transfused 12/27/17 01:29 TR1 Unit Blood Type: O Unit Blood Rh: POS Blood Product Code: AS3 Unit Number: [id number] Unit Status: transfused Barcoded Unit Number: =[id number] Barcoded Product Code: =<W3183U48 Barcoded ABO/Rh: =%5100 Unit Expiration: Unit Volume Transfused: 300 Unit Transfusion Start Date/Time: Leukodepleted Red Cells: [id number] transfused 12/27/17 05:01 TR1 Unit Blood Type: O Unit Blood Rh: POS Blood Product Code: CP1 Unit Number: [id number] Unit Status: transfused Barcoded Unit Number: =[id number] Barcoded Product Code: =<U7992B05 Barcoded ABO/Rh: =%5100 Unit Expiration: Unit Volume Transfused: 250 Unit Transfusion Start Date/Time: [id number] Performed By: #### TSGL #### [place] [address] [place] [address] #### LRC #### [facility] [address] [place] [address] HEMOGRAM W/ AUTODIFF Collected: 12/26/2017 Status: F Source: [employer] 11:48 AM SYSTEM REPOSITORY TYPE CODE TESTS [...] fL MPV Normal 8.2 Performed By: #### MD TIESHAIFF #### [employer] [address] [place] [address] MANUAL DIFF Collected: 12/26/2017 Status: F Source: [facility] 11:48 AM SYSTEM REPOSITORY TYPE CODE TESTS [...] NA Comment: SLIDE SCANNED Performed By: #### GISEL MOTLEY #### [employer] [address] [place] [address] US ABDOMEN COMPLETE Observed: 12/24/2017 Status: F Source: [facility] 7:07 PM SYSTEM REPOSITORY Patient Name: ROBYN FIELDS Ultrasound Exam Date/Time 12/24/2017 17:41:00 EDT Exam US Abdomen Complete Ordering Physician MD CELESTE, KISHOR YOUNG Accession Number [id number] CPT4 Codes 84532 () Reason For Exam R10.11 RUQ pain [...] Report Dictated on Final Dictating Physician: MD MCLEOD JOHN R Signed Date and Time: 12/24/2017 7:14 pm Signed by: MD MCLEOD JOHN R Transcribed Date and Time: 12/24/2017 7:15 CR CHEST PA/LAT Observed: 12/02/2017 Status: F Source: [facility] 8:47 AM SYSTEM REPOSITORY Patient Name: ROBYN FIELDS Diagnostic Radiology Exam Date/Time 11/27/2017 10:22:47 EDT Exam CR Chest PA/LAT Ordering Physician MD MUNSON KATHERINE A. Accession Number [id number] CPT4 Codes 10711 () Reason For Exam Follow-up film for [...] LEAD ELECTROCARDIOGRAM Observed: 10/14/2017 Status: F Source: [place] 3:20 PM [facility] Cardiovascular Services [address] [facility] [place] [address] 12 Lead EKG 10/11/17 1209 MR#: [id number] Acct: [id number] Name: ROBYN FIELDS Rep #: [id number] : 1960 57 From: Dennis Tariq MD [...] Abnormal ECG Confirmed by DENNIS TARIQ MD ([id number]), book editor ABIMAEL CLARK ([id number]) on 10/14/2017 3:19:52 PM Referred By: ER Confirmed By:DENNIS TARIQ MD 10/14/17 1519 Date Dennis Tariq MD CC: No Primary Care Physician; Gilberto Greene MD Signed 12 LEAD ELECTROCARDIOGRAM Observed: 10/14/2017 Status: F Source: [place] 3:14 PM [facility] Cardiovascular Services [address] [place] [address] 12 Lead EKG 10/10/17 1423 MR#: [id number] Acct: [id number] Name: ROBYN FIELDS Rep #: [id number] : 1960 57 From: Dennis Tariq MD [...] normal ECG Confirmed by DENNIS TARIQ MD ([id number]), book editor ABIMAEL CLARK (56) on 10/14/2017 3:14:21 PM Referred By: CF Confirmed By:DENNIS TARIQ MD 10/14/17 1514 Date Dennis Tariq MD CC: Chapin Hogan MD; OUT OF TOWN DOCTOR Signed DISCHARGE INSTRUCTION Observed: 10/11/2017 Status: F Source: [place] 1:18 PM [facility] Medical Records Department [address] [place] [address] Discharge Instruction 10/11/17 1317 MR#: [id number] Acct: [id number] Name: ROBYN FIELDS Rep #: [id number] : 1960 57 From: Gilberto Greene MD PCP: Care Physician, No Primary Status: REG ER ED [...] problems, contact your Primary Care Provider. Call [facility] ([phone]) or report to the closest Emergency Room. Call 911 if necessary. 10/11/17 1318 <Electronically signed by Gilberto Greene MD> Date Gilberto Greene MD Cosigner Signature (If Indicated): Date CC: No Primary Care Physician EMERGENCY DEPARTMENT Observed: 10/11/2017 Status: F Source: [place] SUMMARY 1:17 PM [facility] Medical Records Department [address] [place] [address] Emergency Department Summary 10/11/17 1315 MR#: [id number] Acct: [id number] Name: ROBYN FIELDS Rep #: [id number] : 1960 57 From: Gilberto Greene MD PCP: Care Physician, No Primary Status: REG ER - [...] Alcohol withdrawal This note was generated with [employer] dictation software. It may contain incorrect words, [...] your Primary Care Provider. Call [facility] ([phone]) or report to the closest Emergency Room. Call 911 if necessary. 10/11/17 1317 <Electronically signed by Gilberto Greene MD> Date Gilberto Greene MD Cosigner Signature (If Indicated): Date CC: No Primary Care Physician CBC W/DIFF, AUTOMATED Collected: 10/11/2017 Status: F Source: [place] 12:16 PM [facility] TYPE CODE TESTS RESULT OUT OF [...] Lymph 1.17 Performed By: #### L100.0100 #### [facility] [address] [place], [address] BASIC METABOLIC Collected: 10/11/2017 Status: F Source: [place] [facility] 12:16 PM [facility] RE[facility] TYPE CODE TESTS RESULT OUT OF [...] 8 Performed By: #### L500.2500, L501.4010 #### [facility] [address] [place], [address] TROPONIN-I Collected: 10/11/2017 Status: F Source: [place] 12:16 PM [facility] REPOSIT[facility] TYPE CODE TESTS RESULT OUT OF RANGE REFERENCE UNITS LAB L501.4010 <0.045 ng/mL Normal < 0.015 TROPONIN-I Result Comment: TROPONIN-I EXPECTED VALUES <0.045 Negative 0.045 - 0.590 Consistent with Cardiac Damage > OR = 0.600 Critical Value Not every elevated troponin is indicative of MS. These values should be used with clinical judgement in examining the patient's clinical picture for diagnosis. To establish a diagnosis of MS versus myocardial injury, there must be a demonstrated rise and/or fall in the troponin values, in addition to ischemic symptoms, EKG changes, new regional wall motion abnormality, and/or angiographical evidence. PLEASE NOTE: REFERENCE RANGES EDITED 17 Performed By: #### L500.2500, L501.4010 #### [facility] [address] [place], [address] CONSULTATION Observed: 10/10/2017 Status: F Source: [place] 4:10 PM [facility] Medical Records Department [address] [facility] [place] [address] Consultation 10/10/17 1603 MR#: [id number] Acct: [id number] Name: MAHSAROBYN Stan Rep #: [id number] : 1960 57 From: Jose Crowley DO [...] consult. Code Visit Office Visits / Consults: [id number] OP Consult L4 10/10/17 1610 <Electronically signed by Jose Crowley DO> Date Jose Crowley DO Cosigner Signature (if applicable): Date CC: OUT OF TOWN DOCTOR Signed EMERGENCY DEPARTMENT Observed: 10/10/2017 Status: F Source: [place] SUMMARY 3:52 PM [facility] Medical Records Department [address] [place] [address] Emergency Department Summary 10/10/17 1535 MR#: [id number] Acct: [id number] Name: ROBYN FIELDS Rep #: [id number] : 1960 57 From: Cuong Hogan MD [...] [Alcohol Abuse] This note was generated with [employer] dictation software. It may contain incorrect words, [...] problems, contact your Primary Care Provider. Call [facility] ([phone]) or report to the closest Emergency Room. Call 911 if necessary. 10/10/17 1541 <Electronically signed by Cuong Hogan MD> Date Cuong Hogan MD Cosigner Signature (If Indicated): Date CC: OUT OF TOWN DOCTOR URINE DRUG SCREEN Collected: 10/10/2017 Status: F Source: [place] ([place]) 2:20 PM [facility] TYPE CODE TESTS RESULT OUT OF [...] Normal NEGATIVE Performed By: #### L505.5000 #### [facility] [address] [place], [address] COMPREHENSIVE METABOLIC Collected: 10/10/2017 Status: F Source: [place] 2:20 PM [facility] RE[facility] TYPE CODE TESTS RESULT OUT OF [...] 18 Performed By: #### L500.4050, L501.2450 #### [facility] [address] [place], [address] LIPASE Collected: 10/10/2017 Status: F Source: [place] 2:20 PM [facility] REPOS[facility] TYPE CODE TESTS RESULT OUT OF RANGE REFERENCE UNITS LAB L501.2450 73-393 U/L Normal LIPASE 220 Performed By: #### L500.4050, L501.2450 #### [facility] [address] [place], [address] ALCOHOL, BLOOD Collected: 10/10/2017 Status: F Source: [place] (MEDICAL)-SERUM 2:20 PM [facility] REPOSIT[facility] TYPE CODE TESTS RESULT OUT OF [...] fatal coma Performed By: #### L501.9100 #### [facility] [address] [facility], [address] CHEST 1 VIEW Observed: 10/10/2017 Status: F Source: [place] (PORTABLE) 2:14 PM [facility] Imaging Services [address] [place] [address] Chest 1 View (Portable) MR#: [id number] Acct: [id number] Name: ROBYN FIELDS Rep #: [id number] : 1960 F 57 From: Javed Aquino MD PCP: OUT OF TOWN DOCTOR Status: REG ER Study: Chest 1 View (Portable) Date of Exam: 10/10/17 Exam# [id number] Ordering Dr: Cuong Hogan MD STUDY: X-RAY [...] Chapin Hogan MD; OUT OF TOWN DOCTOR [employer]: Signed ALLERGIES ALLERGIES DATE TYPE / CODE NAME / CODE REACTION SEVERITY SOURCE 02/17/2018 Drug sulfamethoxa Rash Unknown [facility] Allergy/4160 zole/[id number] [facility](SNOMED 827(RXNORM) Repository CT) 02/17/2018 Drug trimethoprim Rash Unknown [facility] Allergy/4160 /[id number]( [facility](SNOMED RXNORM) Repository CT) ENCOUNTERS ENCOUNTERS ADMIT/DISCHARGE ACCOUNT NUMBER ADMITTING ENCOUNTER LOCATION SOURCE CLASS 02/17/2018/02/19/20 [id number] Emergency [address] ding:ED Repository 01/30/2018/02/01/20 [id number] Emergency [address] ding:ED Repository 01/07/2018 [id number] Ambulatory [facility] System Repository 01/06/2018 [id number] Emergency [address] [place] [address] EDRoom: 2A System 444Bed: Repository [id number] 12/31/2017 [id number] Emergency [address] [place] [address] EDRoom: 2A System 444Bed: Repository [id number] 12/31/2017 [id number] [facility] Repository 12/26/2017 [id number] Inpatient [facility] Encounter 2ERoom: System 9U544Dqa: Repository [id number] 12/26/2017 [id number] [facility] Repository 12/24/2017 [id number] [facility] Repository 12/24/2017 [id number] [facility] Repository 12/23/2017 [id number] [facility] Repository 12/22/2017 [id number] [facility] ng:H.JK 12/19/2017 [id number] [facility] Repository 11/29/2017 [id number] [facility] Repository 11/27/2017 [id number] [facility] Repository 11/06/2017 [id number] [facility] Repository 10/15/2017 [id number] [facility] Repository 10/11/2017/10/12/19 [id number] Emergency [facility] [address] ding:ED Repository 10/10/2017/10/11/19 [id number] Emergency [address] ding:ED Repository 10/10/2017 [id number] Ambulatory BMSBuilding: Mega BMS.Pending sale to [facility] Repository 09/03/2017 [id number] [facility] Repository 06/26/2017 [id number] [facility] Repository 05/02/2017 [id number] Ambulatory [facility] Repository 04/23/2017 [id number] Ambulatory [facility] Repository PAYERS PAYERS ENCOUNTER GUARANTOR PAYER SUBSCRIBER SOURCE 02/17/2018 ROBYN A Primary ROBYN A [place] [id number] Insurance:[facility]: [facility] [id number] [id number], Number: Repository [place] [address]Ask: [id number] Date:7693-26-65TY [address]OX () [place], [place] [address]OS: 02/17/2018 Secondary NOT GIVENUNK [place] Insurance:SELF PAY [facility] Number: Effective Repository Date:2018-02-17 01/30/2018 ROBYN A Primary ROBYN A [place] [id number] Insurance[facility] [id number] [place], Number: Repository [place] [address]Jnk: [id number] Date:7956-71-38GQ [address] () [address]26932UNLJZZB, [place] [address]LM: 01/30/2018 Secondary NOT GIVENUNK [place] Insurance:SELF PAY [facility] Number: Effective Repository Date:2018-01-30 01/07/2018 Robyn A Primary Robyn A [facility] [id number] Repository [place] Number: [place], [place]: [place] [address]Odd: (HP) 01/06/2018 Robyn A Primary Robyn A [address] [facility] Center[facility]: Insurance:[facility] HospitalB: System HealthcarePolicy [id number] Repository [place] Number: Effective [address], Date: [place] [address]Xgc: (HP) 12/31/2017 Robyn A Primary Robyn A [address] [facility] System HealthcarePolicy [id number] Repository [place] Number: Effective [place], [place]: [place] [address]Vzs: (HP) 12/31/2017 Robyn A Primary Robyn A [address] [facility] Center[facility]: Insurance[facility]: System HealthcarePolicy [id number] Repository [place] Number: Effective [address], Date: [place] [address]Myq: (HP) 12/26/2017 Robyn A Primary Robyn A [facility] Center[facility]: Insurance:[facility] HospitalB: System [facility] [id number] Repository [place] Number: Effective [address], [place]: [place] [address]Owc: (HP) 12/26/2017 Secondary Robyn A [facility] Insurance:MedicaidPoli [place]woodDOB: System cy Number: Effective [id number] Repository Date: 12/26/2017 Robyn A Primary Robyn A [facility] [place]: Insurance:[facility] HospitalB: System [facility] [id number] Repository [place] Number: Effective [place], [place]: [place] [address]Shy: () 12/24/2017 Robyn A Primary Robyn A [facility] Health [place]DOB: Insurance:[facility] HospitalB: System [facility] [id number] Repository [place] Number: Effective [place], [place]: [place] [address]Rie: (HP) 12/24/2017 Robyn A Primary Robyn A [facility] CenterwoodDOB: Insurance:[facility] HospitalB: System [facility] [id number] Repository [place] Number: Effective [place], [place]: [place] [address]Loo: (HP) 12/23/2017 Robyn A Primary Robyn A [facility] WallCompass [place]OB: Insurance:[facility] HospitalB: System [facility] [id number] Repository [place] Number: Effective [address], [place]: [place] [address]Wzu: (HP) 12/22/2017 ROBYN A Primary Insurance:[facility] ROBYN A [place] [id number] [facility] [place]ER Number: Repository [place], [id number] [place] [address]Gbv: Date: [address], [place] () [address]FE: 12/19/2017 Robyn A Primary Robyn A [facility] CenterwoodDOB: Insurance:[facility] HospitalB: System Healthcare[facility] [id number] Repository [place] Number: Effective [address], [place]: [place] [address]Jgb: (HP) 11/29/2017 Robyn A Primary Robyn A [facility] WallCompass [place]OB: Insurance:[facility] HospitalB: [facility] [id number] Repository [place] Number: Effective [address], [place]: [place] [address]Dgc: (HP) 11/27/2017 Robyn A Primary Robyn A [facility] WallCompass [place]DOB: Insurance:[facility] HospitalB: System HealthcarePolicy [id number] Repository [place] Number: Effective [place], Date: [place] [address]Yrh: (HP) 11/06/2017 Robyn A Primary Robyn A [facility] WallCompass [place]OB: Insurance:[facility] HospitalB: System [facility] [id number] Repository [place] Number: Effective [address], [place]: [place] [address]Myx: (HP) 10/15/2017 Robyn A Primary Robyn A [facility] Health SherwoodDOB: Insurance:[facility] HospitalB: System [facility] [id number] Repository [place] Number: Effective [address], Date: [place] [address]Ufo: (HP) 10/11/2017 ROBYN A Primary ROBYN A [place] [id number] Insurance:[facility]OSPITALD[facility]: [facility] [address]Ukiwch [id number], Number: Repository [place] [address]Qlj: [id number] Date:2254-94-88SS [address]OX () [address]67[address]KHGSUQP, [place] [address]BR: 10/11/2017 Secondary NOT GIVENUNK [place] Insurance:SELF PAY [facility] Number: Effective Repository Date:2017-10-11 10/10/2017 ROBYN A Primary ROBYN A [place] [id number] Insurance:[facility] HEALTHB: [address] [id number], Number: [place]ository [place] [address]Tvz: [id number] Date:7764-42-04TO [address]OX () [address]04[address]QGAWHIT, [place] [address]LJ: 10/10/2017 Secondary NOT GIVENUNK [place] Insurance:SELF PAY [facility] Number: Effective Repository Date:2017-10-10 10/10/2017 ROBYN A Primary ROBYN A Mega [id number] Insurance:[facility]: [place] [id number] [id number] [facility] Number: Repository , [place] [address]Pno: [id number] Date:4982-92-62BB [address] () [address]88[address]RUGSFSA, [place] [address]ZN: 10/10/2017 Secondary NOT GIVENUNK [place] Insurance:SELF PAY [facility] Number: Effective Repository Date:2017-10-10 09/03/2017 Robyn A Primary [facility] A [facility] Center[facility]: Insurance:[facility]: System [id number] [facility] [id number] Rehabilitation Hospital [place] Number: Effective [facility], Date: [place] [address]Unq: () 06/26/2017 Robyn A Primary [facility]yn A [facility]: Insurance:[facility]: System [id number] [facility] [id number] Repository [place] Number: Effective [place], Date: [place] [address]Gwy: () 05/02/2017 Robyn A Primary Robyn A [address] [place]: Insurance:[facility]: System [facility] [id number] Repository [place] Number: Effective [place], [place]: [place] [address]Hsl: (HP) 04/23/2017 Robyn A Primary Robyn A [address] [place]: Insurance:[facility]: System [facility] [id number] Repository [place] Number: Effective [place], [place]: [place] [address]Ppd: ()
== END 2018-02-18 23:38 ==
PROVIDERS: Emergency Medicine; Emergency Provider Emergency Medicine
DX: R45.851 Suicidal ideations (principal); F10.129 Alcohol abuse with intoxication, unspecified; Y90.8 Blood alcohol level of 240 mg/100 ml or more; R00.0 Tachycardia, unspecified; F32.9 Major depressive disorder, single episode, unspecified; Z72.0 Tobacco use; Z79.02 Long term (current) use of antithrombotics/antiplatelets; Z79.899 Other long term (current) drug therapy
CPT/HCPCS: 36415; 80053; 80307; 80320; 81001; 85025; 93005; 99283; G0480

== ENCOUNTER 2023-08-17 19:11 | Inpatient (IN) | payer MEDICAID, SELFPAY ==
[2023-08-17] VITALS (14 sets, daily range): BP systolic 116–144; BP diastolic 69–100; PULSE 75–105; RESP 11–24; TEMP 36.1–36.6; O2SAT 77–95; BMI 28.0; BMI 27.5
--- NOTE | 2023-08-17 19:40 | CT_ITS ---
EXAM: CT ANGIOGRAPHY CHEST WITHOUT AND WITH INTRAVENOUS CONTRAST CLINICAL INDICATION: syncope, hypoxia TECHNIQUE: Helically acquired angiography images were obtained of the chest without and with intravenous contrast. This CT exam was performed using one or more of the following dose reduction techniques: automated exposure control, adjustment of the mA and/or kV according to patient size, and/or use of iterative reconstruction technique. MIP reconstructed images were created and reviewed. CONTRAST: IV 100mL Isovue-370 RADIATION DOSE: CTDIvol = 17.97 mGy, DLP = 402.04 mGy-cm COMPARISON: No relevant prior studies available. FINDINGS: PULMONARY ARTERIES: Unremarkable. No demonstrated pulmonary embolism or arterial dissection. AORTA: There is atherosclerotic calcification of the aortic arch with tortuosity and elongation of the aortic arch and descending thoracic aorta. Normal in caliber. No evidence of dissection. GREAT VESSELS OF AORTIC ARCH: Unremarkable. Normal in caliber. No evidence of dissection. LUNGS AND PLEURAL SPACES: Interlobular septal thickening may suggest mild pulmonary edema. There is bilat. Midlung and lower lobe infiltrates suggesting a pneumonia. No mass. No pleural effusion or thickening. HEART: There are calcifications of the coronary arteries. Heart size is normal. No pericardial effusion. MEDIASTINUM: Unremarkable. No mediastinal or hilar adenopathy. Esophagus is unremarkable. No hiatal hernia. THYROID: Unremarkable. No thyroid lesions. BONES/JOINTS: There are degenerative changes of the shoulders. There are multi-level degenerative changes of the thoracic spine. Multilevel lower thoracic compression deformities with several segments of retropulsed fragment. These appear old. If of concern MRI can better evaluate. No suspicious lytic or blastic abnormality. OTHER FINDINGS: Post-processing of the images was performed, with axial imaging and 3D reconstruction. MIPS images were obtained. CT/CTA Chest W/WO Contrast IMPRESSION: 1. No demonstrated pulmonary embolism or arterial dissection. 2. Interlobular septal thickening may suggest mild pulmonary edema. 3. There is bilateral Midlung and lower lobe infiltrates suggesting a pneumonia. 4. Multilevel lower thoracic compression deformities with several segments of retropulsed fragments into the spinal canal. These appear old. If of concern MRI can better evaluate. Electronically Signed: Maikel Verduzco MD at 21:02 EDT ,
--- NOTE | 2023-08-17 19:41 | EKG12_ITS ---
Test Reason : CP Blood Pressure : / mmHG Vent. Rate : 101 BPM Atrial Rate : 101 BPM P-R Int : 192 ms QRS Dur : 086 ms QT Int : 372 ms P-R-T Axes : 029 131 047 degrees QTc Int : 482 ms Sinus tachycardia Possible Left atrial enlargement Left posterior fascicular block Possible Inferior infarct , age undetermined Cannot rule out Anterior infarct , age undetermined Abnormal ECG Confirmed by ALEXANDRA CARSON, MARRY ([id number]), society editor JYOTHI GAMING ([id number]) on 08/19/2023 9:54:17 AM Referred By: LIVAN Confirmed By:LAWRENCE MORRIS MD
--- NOTE | 2023-08-17 19:43 | EX.ED.DYSGE1 ---
HPI <JOVANI Tavarez - Last Filed: 08/17/23 21:25> History of Present Illness Chief Complaint: Chest Pain Narrative Narrative: 62-year-old female with past medical history of HTN, HLD, CAD with 1 stent, tobacco use presents after a syncopal episode. She states she did not eat much yesterday and today was at a family constitution party and only had crackers and fruit. She felt well until walking to the car to leave and then felt lightheaded and passed out. Family member states she fell into the car hitting the seat and was out for about a minute. When she woke up she was confused and only remembers being transported here by EMS. Paramedics state her blood sugar was 61 and gave her oral glucose and it's up to 79. Since passing out she has chest pain and was noted to be 75% on room air and started on O2. She does not wear home oxygen. She smokes 5+ cigarettes daily but has not been diagnosed with COPD. She admits to 1 month of intermittent pleuritic chest pain but denies dyspnea on exertion. She has a chronic smoker's cough. No history of DVT/PE. [facility] <JOVANI Tavarez - Last Filed: 08/17/23 21:25> [facility] Medical History (Updated 08/17/23 @ 21:10 by JOVANI Tavarez) Depression HTN (hypertension) CAD (coronary artery disease) Home Medications ?Medication ?Instructions ?Recorded ?Last Taken ?Type fluoxetine 20 mg capsule (Prozac) 40 mg PO DAILY 01/31/18 Unknown History alendronate 70 mg tablet 70 mg PO QWEEK 08/17/23 Unknown History bupropion HCl 300 mg 24 hr tablet, 300 mg PO DAILY 08/17/23 Unknown History extended release cholecalciferol (vitamin D3) 25 25 mcg PO DAILY 08/17/23 Unknown History mcg (1,000 unit) capsule (Vitamin D3) gabapentin 800 mg tablet 800 mg PO BID 08/17/23 Unknown History lorazepam 1 mg tablet 1 mg PO BID 08/17/23 Unknown History Allergy/AdvReac Type Severity Reaction Status Date / Time sulfamethoxazole (From Allergy Rash Verified 02/17/18 16:24 Bactrim) trimethoprim (From Bactrim) Allergy Rash Verified 02/17/18 16:24 Social History Smoking Status: Current every day smoker tobacco type: cigarettes ROS <JOVANI Tavarez - Last Filed: 08/17/23 21:25> ROS ED ROS Narrative Constitutional: Negative for fever, chills, malaise. CVS: Positive for chest pain, syncope. Respiratory: Positive for chronic cough. Negative for shortness of breath. GI: Negative for abdominal pain, nausea, vomiting, melena, hematochezia. Neuro: Negative for headache. EXAM <JOVANI Tavarez - Last Filed: 08/17/23 21:25> Physical Exam Narrative Exam Narrative: CONST: Patient sitting in no acute distress. EYES: Normal appearance. NECK: Normal inspection. RESP: On 4 L nasal cannula, no respiratory distress, faint bibasilar crackles. CVS: Regular rate and rhythm, no murmur, no gallop. ABD: Soft and nontender, no guarding or rebound, nondistended, no hepatosplenomegaly. SKIN: Normal color, warm dry and intact. EXTREMITIES: Normal appearance, no pedal edema, no calf tenderness. 2+ radial and DP pulses. NEURO: Alert and answering questions appropriately. PSYCH: Normal affect. Const Vital Signs: 08/17/23 19:12 08/17/23 19:17 08/17/23 19:20 Temperature 96.9 F L Temperature Source Temporal Pulse Rate 105 H Respiratory Rate 22 H Respiratory Effort Normal Non-Labored Respiratory Pattern Blood Pressure 139/100 H Blood Pressure Mean 113 Pulse Ox 91 77 Oxygen Delivery Method Nasal Cannula Room Air Oxygen Flow Rate (L/min) 4 Fraction of Inspired Oxygen (FIO2) 08/17/23 19:20 08/17/23 19:21 08/17/23 20:11 Temperature Temperature Source Pulse Rate 100 92 Respiratory Rate 11 L 13 Respiratory Effort Normal Non-Labored Respiratory Pattern Normal Blood Pressure Blood Pressure Mean Pulse Ox 90 92 Oxygen Delivery Method Nasal Cannula Oxygen Flow Rate (L/min) Fraction of Inspired Oxygen (FIO2) 4 08/17/23 20:15 08/17/23 20:30 08/17/23 20:37 Temperature Temperature Source Pulse Rate 92 92 Respiratory Rate 15 24 H Respiratory Effort Respiratory Pattern Blood Pressure 118/82 H 116/69 Blood Pressure Mean 93 84 Pulse Ox 91 92 Oxygen Delivery Method Nasal Cannula Nasal Cannula Oxygen Flow Rate (L/min) 4 4 Fraction of Inspired Oxygen (FIO2) 08/17/23 20:45 08/17/23 21:00 Temperature Temperature Source Pulse Rate 89 85 Respiratory Rate 14 12 Respiratory Effort Respiratory Pattern Blood Pressure 136/81 H Blood Pressure Mean 97 Pulse Ox 93 92 Oxygen Delivery Method Oxygen Flow Rate (L/min) Fraction of Inspired Oxygen (FIO2) <Dr. Jose Smith DO - Last Filed: 08/17/23 22:15> Physical Exam Const Vital Signs: 08/17/23 19:12 08/17/23 19:17 08/17/23 19:20 Temperature 96.9 F L Temperature Source Temporal Pulse Rate 105 H Respiratory Rate 22 H Respiratory Effort Normal Non-Labored Respiratory Pattern Blood Pressure 139/100 H Blood Pressure Mean 113 Pulse Ox 91 77 Oxygen Delivery Method Nasal Cannula Room Air Oxygen Flow Rate (L/min) 4 Fraction of Inspired Oxygen (FIO2) 08/17/23 19:20 08/17/23 19:21 08/17/23 20:11 Temperature Temperature Source Pulse Rate 100 92 Respiratory Rate 11 L 13 Respiratory Effort Normal Non-Labored Respiratory Pattern Normal Blood Pressure Blood Pressure Mean Pulse Ox 90 92 Oxygen Delivery Method Nasal Cannula Oxygen Flow Rate (L/min) Fraction of Inspired Oxygen (FIO2) 4 08/17/23 20:15 08/17/23 20:30 08/17/23 20:37 Temperature Temperature Source Pulse Rate 92 92 Respiratory Rate 15 24 H Respiratory Effort Respiratory Pattern Blood Pressure 118/82 H 116/69 Blood Pressure Mean 93 84 Pulse Ox 91 92 Oxygen Delivery Method Nasal Cannula Nasal Cannula Oxygen Flow Rate (L/min) 4 4 Fraction of Inspired Oxygen (FIO2) 08/17/23 20:45 08/17/23 21:00 Temperature Temperature Source Pulse Rate 89 85 Respiratory Rate 14 12 Respiratory Effort Respiratory Pattern Blood Pressure 136/81 H Blood Pressure Mean 97 Pulse Ox 93 92 Oxygen Delivery Method Oxygen Flow Rate (L/min) Fraction of Inspired Oxygen (FIO2) MDM <JOVANI Tavarez - Last Filed: 08/17/23 21:25> [facility] MDM Narrative Medical decision making narrative: History gathered from: Patient and friend Differential: ACS, PE, pneumonia, cardiac arrhythmia Patient reports a month of intermittent pleuritic chest pain. She is a smoker with chronic cough. She had a syncopal episode and then complained of chest pain. She appears well and nontoxic. She was 70% on room air and is on 4 L nasal cannula satting around 92%. She has faint bibasilar crackles. No signs of lower extremity edema. EKG is sinus tachycardia at 101 with no acute ischemic changes and troponin is 8. Labs notable for mild hemoconcentration at 16.6, potassium 3.2, creatinine 1.13. She was given p.o. potassium and IV fluids. CTA of the chest shows bilateral midlung and lower lobe infiltrate suggesting pneumonia. There is no pulmonary embolism or dissection. There is also questionable mild pulmonary edema. BNP is 18. She was treated with IV Rocephin and Zithromax for pneumonia and case will be discussed with the hospitalist. The hospitalist also requested a dose of IV Solu-Medrol which was given in the ED. Patient admitted to PCU. Lab Data Attestation: I reviewed the patient's lab results. Labs: Laboratory Results - last 24 hr 08/17/23 19:24 WBC 7.3 RBC 5.40 Hgb 16.6 H Hct 50.5 H MCV 93.5 MCH 30.7 MCHC 32.9 RDW Std Deviation 49.9 H RDW Coeff of Raya 14.6 Plt Count 165 MPV 10.5 Immature Gran % (Auto) 1.100 H Neut % (Auto) 59.5 Lymph % (Auto) 27.5 Franklin % (Auto) 9.3 Eos % (Auto) 1.9 Baso % (Auto) 0.7 Absolute Neuts (auto) 4.4 Absolute Lymphs (auto) 2.01 Nucleated RBC % 0 Sodium 139 Potassium 3.2 L Chloride 104 Carbon Dioxide 23.0 Anion Gap 12 BUN 10 Creatinine 1.13 H Estim Creat Clear Calc 46.58 Est GFR (MDRD) Af Amer 62 Est GFR (MDRD) Non-Af 52 L BUN/Creatinine Ratio 8.8 L Glucose 131 H Calcium 9.3 Troponin I High Sens 8 B-Natriuretic Peptide 18.8 Radiography Diagnostic Testing: Clinical Impression(s) from Imaging Studies Chest CTA 08/17/23 19:40 IMPRESSION: 1. No demonstrated pulmonary embolism or arterial dissection. 2. Interlobular septal thickening may suggest mild pulmonary edema. 3. There is bilateral Midlung and lower lobe infiltrates suggesting a pneumonia. 4. Multilevel lower thoracic compression deformities with several segments of retropulsed fragments into the spinal canal. These appear old. If of concern MRI can better evaluate. Electronically Signed: Maikel Verduzco MD at 21:02 EDT , EKG Initial EKG: Attestation: I personally reviewed and interpreted this EKG as follows: Interpretation: Sinus Tachycardia Comments: Sinus tachycardia at 101 bpm Left posterior fascicular block No acute ST changes. <Dr. Jose Smith, DO - Last Filed: 08/17/23 22:15> [facility] Lab Data Labs: Laboratory Results - last 24 hr 08/17/23 19:24 WBC 7.3 RBC 5.40 Hgb 16.6 H Hct 50.5 H MCV 93.5 MCH 30.7 MCHC 32.9 RDW Std Deviation 49.9 H RDW Coeff of Raya 14.6 Plt Count 165 MPV 10.5 Immature Gran % (Auto) 1.100 H Neut % (Auto) 59.5 Lymph % (Auto) 27.5 Franklin % (Auto) 9.3 Eos % (Auto) 1.9 Baso % (Auto) 0.7 Absolute Neuts (auto) 4.4 Absolute Lymphs (auto) 2.01 Nucleated RBC % 0 Sodium 139 Potassium 3.2 L Chloride 104 Carbon Dioxide 23.0 Anion Gap 12 BUN 10 Creatinine 1.13 H Estim Creat Clear Calc 46.58 Est GFR (MDRD) Af Amer 62 Est GFR (MDRD) Non-Af 52 L BUN/Creatinine Ratio 8.8 L Glucose 131 H Calcium 9.3 Troponin I High Sens 8 B-Natriuretic Peptide 18.8 Radiography Diagnostic Testing: Clinical Impression(s) from Imaging Studies Chest CTA 08/17/23 19:40 IMPRESSION: 1. No demonstrated pulmonary embolism or arterial dissection. 2. Interlobular septal thickening may suggest mild pulmonary edema. 3. There is bilateral Midlung and lower lobe infiltrates suggesting a pneumonia. 4. Multilevel lower thoracic compression deformities with several segments of retropulsed fragments into the spinal canal. These appear old. If of concern MRI can better evaluate. Electronically Signed: Maikel Verduzco MD at 21:02 EDT , Management Discussion w/another healthcare provider: Hospitalist Treatment and Re-Evaluation :: I have personally performed a face to face assessment of the patient and have reviewed the SURAJ Note. I performed a substantive portion of the visit including all aspects of the following. My alicia findings include: History: Patient presents with chest pain and syncopal episode that occurred today. Patient states she had a syncopal episode and then when she regained consciousness, she started having some pain in her chest. Patient states the pain is over the left upper chest. Patient does admit to some shortness of breath. Patient states she has chronic shortness of breath. Patient describes her pain as a pressure over her left upper chest. Patient states nothing makes it better nothing makes it worse. Exam: Vital signs are stable. Patient is afebrile. Patient is in no acute distress. Patient pulse oximeter was noted to be 77% on room air. Patient is not on home oxygen. Patient was started on nasal cannula oxygen at 4 L/min. Patient's pulse oximeter improved to 92% with this. Oral mucosa is pink and moist. Neck is supple. Trachea is midline. There is no JVD. Heart was regular rate and rhythm. Lungs are diminished bilaterally but equal. There is adequate respiratory effort noted. There is mild tenderness over the left upper chest wall. There is no bony crepitance or step-off. There is no subcutaneous emphysema palpated. Abdomen is soft. Bowel sounds are normal. There is no tenderness. Cranial nerves II through XII are intact. There are no focal motor or sensory deficits noted. Medical Decision Making: Differential diagnosis includes cardiac dysrhythmia, cardiac ischemia, pulmonary embolism, pneumonia, congestive heart failure, electrolyte abnormality, and anxiety. EKG will be obtained to assess for cardiac dysrhythmia and cardiac ischemia. CTA of the chest will be obtained to assess for pulmonary embolism and pneumonia. CBC will be obtained to assess for leukocytosis and anemia. Basic metabolic profile will be obtained to assess for electrolyte abnormality and renal function. High-sensitivity troponin will be obtained to assess for cardiac ischemia. BNP will be obtained to assess for congestive heart failure. Patient was given IV fluids, morphine, and Zofran. CBC was reviewed. There is slight increased hemoglobin of 16.6 and hematocrit of 50.5. The remainder was within normal limits. Basic metabolic profile was reviewed. Potassium was slightly low at 3.2. Creatinine was slightly elevated at 1.13. The remainder was essentially within normal limits. High-sensitivity troponin was reviewed and was normal at 8. BNP was reviewed and was normal at 18.8. CTA of the chest was obtained. There is no evidence of pulmonary embolism or arterial dissection. There is bilateral midlung and lower lobe infiltrates. This was interpreted by the radiologist was also independently reviewed by myself. Patient was started on Rocephin and Zithromax. Patient was given a dose of oral potassium here. Case was discussed with the hospitalist. He will admit the patient to his service. Patient understood and was agreeable with the plan. All questions were answered. Discharge Plan Dx/Rx/DC Orders Clinical Impression: Multifocal pneumonia, Chest pain, Syncope, Tobacco use, Hypoxia Disposition Disposition: Acute Care Hospital [facility] Discharge Date/Time: 08/17/23 22:03
[2023-08-17 19:58] LABS: Absolute Lymphocyte Count 2.01 X10^3/uL (0.83-4.51); Absolute Neutrophil Count 4.4 X10^3/uL (2.0-7.7); Basophil# 0.05 X10^3/uL; Basophil% 0.7 % (0-1); Eosinophil# 0.14 X10^3/uL; Eosinophils% 1.9 % (0-5); Hematocrit 50.5 % (37-47); Hemoglobin 16.6 g/dL (12.0-15.0); Lymphocyte # 2.01 X10^3/ul (0.83-4.51); Lymphocyte % 27.5 % (19-41); Mean Corp Hgb Conc 32.9 g/dL (32-36); Mean Corpuscular Hgb 30.7 pg (27.0-32.0); Mean Corpuscular Volume 93.5 fL (81-99); Mean Platelet Vol. 10.5 fl (6.2-12.0); Monocyte# 0.68 X10^3/uL; Monocyte% 9.3 % (0-10); NRBC Flagged by Analyzer 0 % (0-5); Neutrophil # 4.35 X10^3/uL (2.7-7.7); Neutrophil % 59.5 % (47-70); Platelet Count 165 K/mm3 (150-450); RBC Distribution Width CV 14.6 % (11.6-14.6); RBC Distribution Width SD 49.9 fl (35.1-43.9); White Blood Count 7.3 K/mm3 (4.4-11.0)
[2023-08-17 20:11] LABS: Anion Gap 12 (5-15); BUN 10 mg/dL (7-18); BUN/Creat Ratio 8.8 RATIO (10-20); Calcium,Total 9.3 mg/dL (8.5-10.1); Chloride 104 mmol/L (98-107); Creatinine, Serum 1.13 mg/dL (0.55-1.02); EST Glomerular Filtration Rate 52 mL/min (>60); Est Glom Filt Rate - Afr Amer 62 mL/min (>60); Estimated Creatinine Clearance 46.58 ml/min; Glucose 131 mg/dL (74-106); Potassium 3.2 mmol/L (3.5-5.1); Sodium Level 139 mmol/L (136-145); Troponin-I HS 8 pg/mL (3.0-54.0)
[2023-08-17 20:20] LABS: BNP,B-Type NATRIURETIC PEPTIDE 18.8 pg/mL (0-100)
[2023-08-17] MEDS: Potassium Chloride Oral Tablet 20 MEQ 40 MEQ PO (20:38)
[2023-08-17] MEDS: 0.9% Normal Saline (1000mL) 1,000 ML 999 ML IV (20:38)
[2023-08-17] MEDS: Morphine 4 MG/ML Syringe IV (21:01)
[2023-08-17] MEDS: Ondansetron 4 MG/2 ML Vial IV (21:01)
--- NOTE | 2023-08-17 21:18 | PCM.HP.STD ---
HPI - General General Date of Admission: 08/17/23 Date of Service: 08/17/23 Chief Complaint: Syncopal episode, worsening shortness of breath with exertion HPI Narrative ALEXIS BRAGG, is a 62 F who presented to [facility] ED on 08/17/2023 after a syncopal episode. Saw patient at bedside on the floor shortly after arrival over from ED. Patient was sleeping on arrival to the room. Upon awakening, patient was answering questions appropriately and appeared comfortable. She was breathing comfortably on 3 L nasal cannula at rest. Patient states she was at a family alliance party today, felt well at the alliance party until walking out to the car when she somewhat suddenly developed lightheadedness and passed out. Family member noted that she fell into the car onto the seat and was out for about a minute. They called EMS at that time. Her blood sugar was noted to be low at 61 and her oxygen saturation was at 75% on room air. She was given oral glucose with some improvement in glucose to 79 and was started on supplemental oxygen. In the ED, she remained hypoxic and was requiring 3 L nasal cannula to maintain saturations in the low 90s. CTA chest was obtained and showed no PE but findings were consistent with possible pneumonia. Patient does not have diagnosed COPD but she is a longtime smoker and currently smokes about 5 cigarettes/day. Given concern for pneumonia and new hypoxia, she was admitted for further management. Patient currently denies any shortness of breath at rest. She denies any chest pain or fever/chills. Patient states that she has had a dry cough and intermittent pleuritic chest pain for about 1 month. She has noticed worsening shortness of breath with exertion over that timeframe. She lives at home with her and is generally able to do everything around the house for herself without issue. Denies any other acute concerns today. Vitals on admit notable for oxygen saturations in the low 90s on 3 to 4 L nasal cannula, otherwise unremarkable. Labs notable for potassium 3.2, creatinine 1.13 (baseline 0.7-0.8), otherwise unremarkable. BNP 18. Troponins negative x 2. CTA chest showed no PE and was read as showing bilateral mid and lower lung infiltrates suggesting pneumonia along with interlobular septal thickening suggesting mild pulmonary edema; on my read, patient has prominent airways and seems to have mild diffuse groundglass opacities bilaterally. [facility] Medical History (Updated 08/17/23 @ 21:10 by JOVANI Tavarez) Depression HTN (hypertension) CAD (coronary artery disease) Home Medications ?Medication ?Instructions ?Recorded ?Last Taken ?Type fluoxetine 20 mg capsule (Prozac) 40 mg PO DAILY 01/31/18 Unknown History alendronate 70 mg tablet 70 mg PO QWEEK 08/17/23 Unknown History bupropion HCl 300 mg 24 hr tablet, 300 mg PO DAILY 08/17/23 Unknown History extended release cholecalciferol (vitamin D3) 25 25 mcg PO DAILY 08/17/23 Unknown History mcg (1,000 unit) capsule (Vitamin D3) gabapentin 800 mg tablet 800 mg PO BID 08/17/23 Unknown History lorazepam 1 mg tablet 1 mg PO BID 08/17/23 Unknown History Allergy/AdvReac Type Severity Reaction Status Date / Time sulfamethoxazole (From Allergy Rash Verified 02/17/18 16:24 Bactrim) trimethoprim (From Bactrim) Allergy Rash Verified 02/17/18 16:24 Social History Smoking Status: Light Smoker (<10/day) ROS Constitutional Constitutional: Reports fatigue; Denies chills, fever(s) or weakness ENT HEENT: Denies nasal congestion or sore throat Cardiovascular Cardiovascular: Reports dyspnea on exertion; Denies chest pain, edema, lightheadedness or palpitations Respiratory/Chest Respiratory/Chest: Reports cough and shortness of breath with exertion; Denies productive cough, shortness of breath at rest or wheezing Gastrointestinal Gastrointestinal: Denies abdominal pain, constipation, diarrhea, nausea or vomiting Genitourinary Genitourinary: Denies dysuria Musculoskeletal Musculoskeletal: Denies arthralgias or myalgias Neurologic Neurologic: Denies dizziness, focal weakness or headache(s) Vital Signs Vital Signs Vital Signs: 08/17/23 19:12 08/17/23 19:17 08/17/23 19:20 Temperature 96.9 F L Temperature Source Temporal Pulse Rate 105 H Respiratory Rate 22 H Respiratory Effort Normal Non-Labored Respiratory Pattern Blood Pressure 139/100 H Blood Pressure Mean 113 Pulse Ox 91 77 Oxygen Delivery Method Nasal Cannula Room Air Oxygen Flow Rate (L/min) 4 Fraction of Inspired Oxygen (FIO2) 08/17/23 19:20 08/17/23 19:21 08/17/23 20:11 Temperature Temperature Source Pulse Rate 100 92 Respiratory Rate 11 L 13 Respiratory Effort Normal Non-Labored Respiratory Pattern Normal Blood Pressure Blood Pressure Mean Pulse Ox 90 92 Oxygen Delivery Method Nasal Cannula Oxygen Flow Rate (L/min) Fraction of Inspired Oxygen (FIO2) 4 08/17/23 20:15 08/17/23 20:30 08/17/23 20:37 Temperature Temperature Source Pulse Rate 92 92 Respiratory Rate 15 24 H Respiratory Effort Respiratory Pattern Blood Pressure 118/82 H 116/69 Blood Pressure Mean 93 84 Pulse Ox 91 92 Oxygen Delivery Method Nasal Cannula Nasal Cannula Oxygen Flow Rate (L/min) 4 4 Fraction of Inspired Oxygen (FIO2) 08/17/23 20:45 08/17/23 21:00 Temperature Temperature Source Pulse Rate 89 85 Respiratory Rate 14 12 Respiratory Effort Respiratory Pattern Blood Pressure 136/81 H Blood Pressure Mean 97 Pulse Ox 93 92 Oxygen Delivery Method Oxygen Flow Rate (L/min) Fraction of Inspired Oxygen (FIO2) Weight Weight: 69.6 kg Body Mass Index (BMI) 28.0 Physical Exam Const alert, oriented x3, no apparent distress and average body habitus Constitutional Narrative: Pleasant elderly female, moderately fatigued appearing, otherwise laying comfortably in bed, conversing normally, in no acute distress. General Appearance: cooperative and comfortable HEENT normocephalic, head/scalp atraumatic, hearing grossly normal bilaterally and nasal mucous membranes and turbinates normal Eyes PERRL, EOMs intact bilaterally and conjunctivae normal Neck full ROM Chest inspection of chest normal Resp normal respiratory effort and no use of accessory muscles Resp Narrative: Breathing comfortably on 3 L nasal cannula at rest. Moderately diminished breath sounds bilaterally throughout with mild crackles noted, no wheezing noted. Cardio regular rate, regular rhythm, no murmurs and peripheral pulses 2+ throughout GI normal to inspection, nondistended, normoactive bowel sounds, soft to palpation, non-tender and non-distended Back/Spine normal ROM Extremity normal to inspection, full ROM and no pedal edema Skin no rashes or lesions noted Neuro moves all extremities and no focal motor deficits Speech: speech normal Psych mental status grossly normal Results Lab / Micro Data 08/17/23 19:24 08/17/23 19:24 Labs: Laboratory Results - last 24 hr 08/17/23 19:24: WBC 7.3, RBC 5.40, Hgb 16.6 H, Hct 50.5 H, MCV 93.5, MCH 30.7, MCHC 32.9, RDW Std Deviation 49.9 H, RDW Coeff of Raya 14.6, Plt Count 165, MPV 10.5, Immature Gran % (Auto) 1.100 H, Neut % (Auto) 59.5, Lymph % (Auto) 27.5, [place] % (Auto) 9.3, Eos % (Auto) 1.9, Baso % (Auto) 0.7, Absolute Neuts (auto) 4.4, Absolute Lymphs (auto) 2.01, Nucleated RBC % 0, Sodium 139, Potassium 3.2 L, Chloride 104, Carbon Dioxide 23.0, Anion Gap 12, BUN 10, Creatinine 1.13 H, Estim Creat Clear Calc 46.58, Est GFR (MDRD) Af Amer 62, Est GFR (MDRD) Non-Af 52 L, BUN/Creatinine Ratio 8.8 L, Glucose 131 H, Calcium 9.3, Troponin I High Sens 8, B-Natriuretic Peptide 18.8 Imaging Radiology Impression Chest CTA 08/17/23 19:40 IMPRESSION: 1. No demonstrated pulmonary embolism or arterial dissection. 2. Interlobular septal thickening may suggest mild pulmonary edema. 3. There is bilateral Midlung and lower lobe infiltrates suggesting a pneumonia. 4. Multilevel lower thoracic compression deformities with several segments of retropulsed fragments into the spinal canal. These appear old. If of concern MRI can better evaluate. Electronically Signed: Maikel Verduzco MD at 21:02 EDT Reading Location ID and State: [facility] / [place] , Service support , Assessment & Plan Assessment/Plan (1) Multifocal pneumonia: (2) Hypoxia: (3) Syncope: PLAN: Plan Patient is a 62-year-old female who [facility] after a syncopal episode. 1. Community-acquired pneumonia with hypoxia in setting of suspected COPD, concern for possible inflammatory lung disease ? Admit under inpatient status to PCU. Pulmonology consulted. CTA chest findings could be consistent with bilateral pneumonia but mild diffuse GGO's also concerning for possible inflammatory lung disease. COVID, respiratory PCR panel and sputum culture ordered. Legionella and strep urine antigens ordered. Will treat with IV steroids, azithromycin and ceftriaxone for now. Scheduled DuoNebs and albuterol as needed ordered. Wean supplemental oxygen as able. 2. Syncopal episode ? Unclear etiology but seems most likely related to hypoxia and dehydration. Low concern for cardiac etiology at this time. EKG on admit with normal sinus rhythm, no ST changes. BNP normal, troponins negative x 2. Continue cardiac monitoring but will hold on ordering an echo at this time. Treating as above. 3. Mild NICHOLAS with dehydration ? Creatinine 1.13 on admit, baseline creatinine 0.7-0.8. Labs generally appear hemoconcentrated. Given 1 L normal saline in the ED. Will hold on further IV fluids for now, encouraged p.o. intake. Follow-up a.m. BMP. 4. Mild hypokalemia ? Potassium 3.2 on admit. Magnesium 1.8, phosphorus 2.8. Suspect due to poor p.o. intake. Replete as needed. Chronic medical conditions: ? Anxiety/depression: Stable. Continue home bupropion, fluoxetine and Ativan twice daily. ? Tobacco abuse: Current smoker, smokes about 5 cigarettes/day. Around 90-[id number] history. Nicotine patch ordered per patient request. ? Chronic thoracic compression fractures with low back pain and neuropathy: Stable. Continue home gabapentin. DVT prophylaxis: Lovenox CODE STATUS: Full code, verified Expected disposition: Home, TBD Total clinical time spent by myself addressing the patient's medical issues, reviewing all the data, and collaborating with patient's care team: 55 minutes. Charges/Coding Visit Charges Inpatient E&M: 38714 Init Hosp L2
[2023-08-17] MEDS: Ceftriaxone 1 GM/50 ML BAG IV (21:41)
[2023-08-17] MEDS: MethylPREDNISolone 125 MG/2 ML Vial IV (21:42)
[2023-08-17 21:47] LABS: Troponin-I HS 10 pg/mL (3.0-54.0)
[2023-08-17 22:19] LABS: Magnesium 1.8 mg/dL (1.6-2.6); Phosphorus 2.8 mg/dL (2.5-4.9)
[2023-08-17] MEDS: Azithromycin 500 MG in Dextrose 5%-Water (250mL Bag) 250 ML 250 MG IV (22:24)
[2023-08-17] MEDS: Gabapentin 800 MG Tablet PO (22:29)
[2023-08-17] MEDS: Ipratropium/Albuterol Sulfate 3 ML AMPUL.NEB INHALATION (22:53)
[2023-08-17] MEDS: LORazepam 0.5 MG Tablet PO (23:14)
[2023-08-18] VITALS (15 sets, daily range): BP systolic 104–137; BP diastolic 61–96; PULSE 67–101; RESP 18–20; TEMP 36.4–36.9; O2SAT 87–95
[2023-08-18] MEDS: 0.9% Saline Lock 10 ML Syringe IV ×2 (05:38→13:58)
[2023-08-18 06:18] LABS: Hematocrit 48.1 % (37-47); Hemoglobin 15.6 g/dL (12.0-15.0); Mean Corp Hgb Conc 32.4 g/dL (32-36); Mean Corpuscular Hgb 30.4 pg (27.0-32.0); Mean Corpuscular Volume 93.6 fL (81-99); Mean Platelet Vol. 10.6 fl (6.2-12.0); Platelet Count 148 K/mm3 (150-450); RBC Distribution Width CV 14.5 % (11.6-14.6); RBC Distribution Width SD 50.1 fl (35.1-43.9); Red Blood Count 5.14 M/mm3 (4.2-5.4); White Blood Count 3.6 K/mm3 (4.4-11.0)
[2023-08-18 06:36] LABS: Anion Gap 5 (5-15); BUN 7 mg/dL (7-18); BUN/Creat Ratio 8.9 RATIO (10-20); Calcium,Total 8.7 mg/dL (8.5-10.1); Chloride 106 mmol/L (98-107); Creatinine, Serum 0.79 mg/dL (0.55-1.02); EST Glomerular Filtration Rate 78 mL/min (>60); Est Glom Filt Rate - Afr Amer 95 mL/min (>60); Estimated Creatinine Clearance 65.98 ml/min; Glucose 199 mg/dL (74-106); Potassium 4.4 mmol/L (3.5-5.1); Sodium Level 136 mmol/L (136-145)
[2023-08-18] MEDS: Enoxaparin 40 MG/0.4 ML Syringe SC (08:24)
[2023-08-18] MEDS: Fluoxetine HCl 40 MG CAPSULE PO (08:25)
[2023-08-18] MEDS: Cholecalciferol (VIT D3) 25 MCG TABLET (1,000 UNITS) PO (08:25)
[2023-08-18] MEDS: buPROPion (XL) 300 MG TABLET.XL PO (08:25)
[2023-08-18] MEDS: Gabapentin 800 MG Tablet PO ×2 (08:28→20:59)
--- NOTE | 2023-08-18 10:42 | PN.HOSP_ITS ---
Subjective Subjective No issues overnight, no lightheadedness or dizziness Objective Data Objective Data Vital Signs: Vital Signs Temp Pulse Resp BP Pulse Ox O2 Del Method O2 Flow Rate 97.7 F L 67 18 137/96 H 91 Nasal Cannula 5 08/18/23 08:57 08/18/23 09:04 08/18/23 08:57 08/18/23 08:57 08/18/23 08:57 08/18/23 08:57 08/18/23 08:57 FiO2 4 08/17/23 19:20 Oxygen Flow Rate (L/min) 5 Oxygen Delivery Method Nasal Cannula Weight: 150 lb 5.684 oz Body Mass Index (BMI) 27.5 Intake & Output: Intake and Output for Last 24 Hours 08/17/23 08/18/23 08/19/23 03:59 03:59 03:59 Intake Total 1425 / 1425 240 / 240 Output Total 650 / 650 Balance 1425 / 1425 -410 / -410 Lab / Micro Data 08/18/23 06:00 08/18/23 06:00 Labs: Laboratory Results - last 24 hr 08/17/23 19:24: WBC 7.3, RBC 5.40, Hgb 16.6 H, Hct 50.5 H, MCV 93.5, MCH 30.7, MCHC 32.9, RDW Std Deviation 49.9 H, RDW Coeff of Raya 14.6, Plt Count 165, MPV 10.5, Immature Gran % (Auto) 1.100 H, Neut % (Auto) 59.5, Lymph % (Auto) 27.5, [place] % (Auto) 9.3, Eos % (Auto) 1.9, Baso % (Auto) 0.7, Absolute Neuts (auto) 4.4, Absolute Lymphs (auto) 2.01, Nucleated RBC % 0, Sodium 139, Potassium 3.2 L , Chloride 104, Carbon Dioxide 23.0, Anion Gap 12, BUN 10, Creatinine 1.13 H, Estim Creat Clear Calc 46.58, Est GFR (MDRD) Af Amer 62, Est GFR (MDRD) Non-Af 52 L, BUN/Creatinine Ratio 8.8 L, Glucose 131 H, Calcium 9.3, Troponin I High Sens 8, B-Natriuretic Peptide 18.8 08/17/23 21:18: Phosphorus 2.8, Magnesium 1.8, Troponin I High Sens 10 08/18/23 06:00: WBC 3.6 L, RBC 5.14, Hgb 15.6 H, Hct 48.1 H, MCV 93.6, MCH 30.4, MCHC 32.4, RDW Std Deviation 50.1 H, RDW Coeff of Raya 14.5, Plt Count 148 L, MPV 10.6, Sodium 136, Potassium 4.4, Chloride 106, Carbon Dioxide 25.0, Anion Gap 5, BUN 7, Creatinine 0.79, Estim Creat Clear Calc 65.98, Est GFR (MDRD) Af Amer 95, Est GFR (MDRD) Non-Af 78, BUN/Creatinine Ratio 8.9 L, Glucose 199 H, Calcium 8.7 Micro: Microbiology 08/18/23 04:10 Urine, Clean Catch Streptococcus pneumoniae Antigen (M - Final 08/18/23 04:10 Urine, Clean Catch Legionella Antigen - Final 08/17/23 22:45 Mucosa - Nasopharyngeal Respiratory Panel (PCR) - Final 08/17/23 22:45 Mucosa - Nasopharyngeal Coronavirus COVID-19 PCR - Final Radiography Diagnostic Testing: Radiology Impression Chest CTA 08/17/23 19:40 IMPRESSION: 1. No demonstrated pulmonary embolism or arterial dissection. 2. Interlobular septal thickening may suggest mild pulmonary edema. 3. There is bilateral Midlung and lower lobe infiltrates suggesting a pneumonia. 4. Multilevel lower thoracic compression deformities with several segments of retropulsed fragments into the spinal canal. These appear old. If of concern MRI can better evaluate. Electronically Signed: Maikel Verduzco MD at 21:02 EDT Reading Location ID and State: [facility] / [place] , Service support , Physical Exam Narrative General: Alert, Oriented x3, Cooperative, No apparent distress HEENT: Atraumatic, PERRLA, EOMI, Normocephalic Oral: Moist Mucosa Neck: Supple, No JVD Lungs: Diminished, Normal air movement, No rhonchi, No wheeze, No rales, bibasilar crackles Cardiovascular: Regular rate, Regular Rhythm, Normal S1, Normal S2, No murmurs Abdomen: Soft, Non Tender, Non-Distended, No Hepato-splenomegaly Extremities: No edema, Capillary Refill Less than 3 Seconds Skin: No rashes, No breakdown Musculoskeletal: No Tenderness to Palpation of Joints or Extremities Neurological: No focal neurological deficits, Motor Exam 5/5 strength throughout, Sensory exam intact to light touch and pain Psych/Mental Status: Normal Affect, Appropriate Assessment & Plan Assessment/Plan (1) Multifocal pneumonia: (2) Hypoxia: (3) Syncope: PLAN: Plan 1. Community-acquired pneumonia with hypoxia with COPD exacerbation/tobacco abuse ? Continue with steroids ? Continue breathing treatments ? Continue with antibiotics ? Discussed tobacco cessation ? Sputum cultures pending ? Syncopal episode is likely related to the hypoxia no further cardiac workup unless she has a syncopal episode while here in the hospital ? NICHOLAS resolved 2. Anxiety/depression ? Stabilized ? Continue with her home medications 3. Chronic thoracic compression fractures ? Chronic low back pain with neuropathy ? Continue with gabapentin DVT: Lovenox Charges/Coding Visit Charges Inpatient E&M: 94558 Subs Hosp L2
[2023-08-18] MEDS: Ipratropium/Albuterol Sulfate 3 ML AMPUL.NEB INHALATION ×3 (11:03→19:21)
--- NOTE | 2023-08-18 11:04 | CON.PCM.CC_ITS ---
HPI Consult Data Date of Consult: 08/18/23 HPI Narrative Reason for Consultation: Hypoxemia with PNA HPI Narrative: ALEXIS BRAGG, is a 62 F who presented to [facility] ED on 08/17/23 via EMS following a syncopal episode. The patient reports she had not been eating in the previous two days. She had been attending a democrat and was leaving to get into her 's car. She reports leaning over to place her energy drink ([employer]) into the console and then the next thing she recalls is being in an ambulance. Per chart, she was noted to fall into the car and onto the seat. EMS was called. She was found to have a glucose of 61 and O2 saturation of 75%. Upon become alert she reports having some SOB and left anterior chest pain. She denies having drank any alcohol. In the ED she was still requiring supplemental O2: 3 L/min NC. She had a CTA that was negative for PE but had concerns for PNA. She is now admitted to the floor with O2 and antibiotics. She has reported a cough productive of thick, white/yellowish phlegm without any fever. She does not report any dynamic SOB. Her chest pain is left anterior without radiation. There is no associated nausea or diaphroesis. [facility] Medical History (Updated 08/17/23 @ 21:10 by JOVANI Tavarez) Depression HTN (hypertension) CAD (coronary artery disease) Home Medications ?Medication ?Instructions ?Recorded ?Last Taken ?Type fluoxetine 20 mg capsule (Prozac) 40 mg PO DAILY 01/31/18 Unknown History alendronate 70 mg tablet 70 mg PO QWEEK 08/17/23 Unknown History bupropion HCl 300 mg 24 hr tablet, 300 mg PO DAILY 08/17/23 Unknown History extended release cholecalciferol (vitamin D3) 25 25 mcg PO DAILY 08/17/23 Unknown History mcg (1,000 unit) capsule (Vitamin D3) gabapentin 800 mg tablet 800 mg PO BID 08/17/23 Unknown History lorazepam 1 mg tablet 1 mg PO BID 08/17/23 Unknown History Allergy/AdvReac Type Severity Reaction Status Date / Time sulfamethoxazole (From Allergy Rash Verified 02/17/18 16:24 Bactrim) trimethoprim (From Bactrim) Allergy Rash Verified 18 16:24 Social History Smoking Status: Light Smoker (<10/day) ROS Constitutional Constitutional: Reports poor appetite Cardiovascular Cardiovascular: Reports as per HPI Respiratory/Chest Respiratory/Chest: Reports as per HPI Gastrointestinal Gastrointestinal: Reports as per HPI Neurologic Neurologic: Reports as per HPI Objective Data Objective Data Vital Signs: Vital Signs Last response 3 Temperature 36.5 C L 08/18/23 08:57 Temperature Source Oral 08/18/23 08:57 Pulse Rate 67 08/18/23 09:04 Pulse Strength Normal (2+) 08/18/23 08:57 Respiratory Rate 18 08/18/23 08:57 Respiratory Effort Normal, Non-Labored 08/18/23 04:15 Respiratory Depth Normal 08/17/23 22:56 Respiratory Pattern Normal 08/18/23 07:07 Blood Pressure 137/96 H 08/18/23 08:57 Blood Pressure Mean 109 08/18/23 08:57 Blood Pressure Source Monitor 08/18/23 08:57 Blood Pressure Position Semi-Fowlers 08/18/23 08:57 Blood Pressure Location Right Arm 08/18/23 08:57 Pulse Ox 91 08/18/23 08:57 Oxygen Delivery Method Nasal Cannula 08/18/23 08:57 Oxygen Flow Rate (L/min) 5 08/18/23 08:57 Fraction of Inspired Oxygen (FIO2) 4 08/17/23 19:20 I&O: I&O Last 24 Hours 3 08/17/23 08/17/23 08/18/23 11:59 23:59 11:59 Intake Total 1425 / 1425 240 / 240 Output Total 650 / 650 Balance 1425 / 1425 -410 / -410 I&O: Total Stay 3 08/17/23 19:11 thru 08/18/23 06:00 Intake Total 1665 Output Total 650 Balance 1015 Current Meds Ordered / Administered: Current meds ordered / Administered 3 Generic Name Dose Route Start Last Admin Trade Name Freq PRN Reason Stop Dose Admin Acetaminophen 650 mg 08/17/23 21:57 Acetaminophen 325 Mg Tablet PO Q6H PRN PRN Pain 1-10 Or Fever>100.7 Albuterol Sulfate 2.5 mg 08/17/23 21:57 Albuterol 2.5 Mg/3 Ml Vial.Neb. INHALATION Q2H PRN PRN Dyspnea, wheezing Albuterol/Ipratropium 3 ml 08/17/23 21:57 08/17/23 22:53 Ipratropium/Albuterol Sulfate 3 Ml Ampul.Neb INHALATION 3 ml Q4HWA.RT LYUDMILA Administration Bupropion HCl 300 mg 08/18/23 10:00 08/18/23 08:25 Bupropion (Xl) 300 Mg Tablet.Xl PO 300 mg DAILY LYUDMILA Administration Cholecalciferol 25 mcg 08/18/23 10:00 08/18/23 08:25 Cholecalciferol (Vit D3) 25 Mcg Tablet (1,000 Units) PO 25 mcg DAILY LYUDMILA Administration Enoxaparin Sodium 40 mg 08/18/23 10:00 08/18/23 08:24 Enoxaparin 40 Mg/0.4 Ml Syringe SC 40 mg DAILY LYUDMILA Administration Fluoxetine HCl 40 mg 08/18/23 10:00 08/18/23 08:25 Fluoxetine Hcl 40 Mg Capsule PO 40 mg DAILY LYUDMILA Administration Gabapentin 800 mg 08/17/23 22:00 08/18/23 08:28 Gabapentin 800 Mg Tablet PO 800 mg BID LYUDMILA Administration Azithromycin 500 mg/ Dextrose 255 mls @ 250 mls/hr 08/18/23 22:00 IV Q24H LYUDMILA Ceftriaxone Sodium 1 gm in 50 mls @ 100 mls/hr 08/18/23 22:00 Rocephin IV Q24H LYUDMILA Sodium Chloride 250 mls @ 15 mls/hr 08/17/23 22:23 IV .[id number] PRN Additional IVPB Infusion Sodium Chloride 250 mls @ 15 mls/hr 08/17/23 22:23 IV .[id number] PRN Saline Flush Lorazepam 0.5 mg 08/17/23 21:57 08/17/23 23:14 Lorazepam 0.5 Mg Tablet PO 0.5 mg BID PRN PRN Administration ANXIETY/AGITATION Melatonin 3 mg 08/17/23 21:57 Melatonin 3 Mg Tablet PO QHS PRN PRN INSOMNIA Methylprednisolone 40 mg 08/18/23 06:00 08/18/23 05:38 Methylprednisolone 40 Mg/Ml Vial IV 40 mg Q8 LYUDMILA Administration Nicotine 14 mg 08/17/23 22:50 08/18/23 08:24 Nicotine 14 Mg Patch TD 14 mg DAILY LYUDMILA Administration Nutritional Formula (Lactose Free) 120 ml 08/18/23 12:00 Ensure Plus High Protein 120 Ml Liquid PO TIDCM LYUDMILA Ondansetron HCl 4 mg 08/17/23 21:57 Ondansetron 4 Mg/2 Ml Vial IV Q8H PRN PRN NAUSEA/VOMITING Sodium Chloride 10 - 40 ml 08/17/23 22:23 08/18/23 05:38 0.9% Saline Lock 10 Ml Syringe IV 10 ml UD PRN Administration SALINE FLUSH Physical Exam Const oriented x3 and no apparent distress General Appearance: cooperative, comfortable and well developed Orientation / Consciousness: awake, oriented to person, oriented to place and oriented to time Exam Limitations: no limitations HEENT normocephalic and head/scalp atraumatic Face and Sinus: normal facial exam Mouth: lips normal and tongue normal Eyes PERRL and EOMs intact bilaterally General Eye: normal appearance of both eyes Neck full ROM Chest inspection of chest normal Resp normal respiratory effort, normal air movement, no retractions, no use of accessory muscles and clear to auscultation bilaterally Cardio regular rate and regular rhythm GI normal to inspection, nondistended, normoactive bowel sounds Extremity normal to inspection Skin no rashes or lesions noted Neuro oriented x3, CN's II-XII intact bilaterally, moves all extremities and no focal motor deficits Psych mental status grossly normal, thought process normal, cooperative, affect normal and speech normal Medical Records Data Attestation: I reviewed the patient's medical records Lab / Micro Data Attestation: I reviewed the patient's lab results. 08/18/23 06:00 08/18/23 06:00 Labs: Laboratory Results - last 24 hr 08/17/23 19:24: WBC 7.3, RBC 5.40, Hgb 16.6 H, Hct 50.5 H, MCV 93.5, MCH 30.7, MCHC 32.9, RDW Std Deviation 49.9 H, RDW Coeff of Raya 14.6, Plt Count 165, MPV 10.5, Immature Gran % (Auto) 1.100 H, Neut % (Auto) 59.5, Lymph % (Auto) 27.5, [place] % (Auto) 9.3, Eos % (Auto) 1.9, Baso % (Auto) 0.7, Absolute Neuts (auto) 4.4, Absolute Lymphs (auto) 2.01, Nucleated RBC % 0, Sodium 139, Potassium 3.2 L , Chloride 104, Carbon Dioxide 23.0, Anion Gap 12, BUN 10, Creatinine 1.13 H, Estim Creat Clear Calc 46.58, Est GFR (MDRD) Af Amer 62, Est GFR (MDRD) Non-Af 52 L, BUN/Creatinine Ratio 8.8 L, Glucose 131 H, Calcium 9.3, Troponin I High Sens 8, B-Natriuretic Peptide 18.8 08/17/23 21:18: Phosphorus 2.8, Magnesium 1.8, Troponin I High Sens 10 08/18/23 06:00: WBC 3.6 L, RBC 5.14, Hgb 15.6 H, Hct 48.1 H, MCV 93.6, MCH 30.4, MCHC 32.4, RDW Std Deviation 50.1 H, RDW Coeff of Raya 14.5, Plt Count 148 L, MPV 10.6, Sodium 136, Potassium 4.4, Chloride 106, Carbon Dioxide 25.0, Anion Gap 5, BUN 7, Creatinine 0.79, Estim Creat Clear Calc 65.98, Est GFR (MDRD) Af Amer 95, Est GFR (MDRD) Non-Af 78, BUN/Creatinine Ratio 8.9 L, Glucose 199 H, Calcium 8.7 Micro: Microbiology 08/18/23 04:10 Urine, Clean Catch Streptococcus pneumoniae Antigen (M - Final 08/18/23 04:10 Urine, Clean Catch Legionella Antigen - Final 08/17/23 22:45 Mucosa - Nasopharyngeal Respiratory Panel (PCR) - Final 08/17/23 22:45 Mucosa - Nasopharyngeal Coronavirus COVID-19 PCR - Final Imaging Radiology Impression Chest CTA 08/17/23 19:40 IMPRESSION: 1. No demonstrated pulmonary embolism or arterial dissection. 2. Interlobular septal thickening may suggest mild pulmonary edema. 3. There is bilateral Midlung and lower lobe infiltrates suggesting a pneumonia. 4. Multilevel lower thoracic compression deformities with several segments of retropulsed fragments into the spinal canal. These appear old. If of concern MRI can better evaluate. Electronically Signed: Maikel Verduzco MD at 21:02 EDT , Assessment and Plan . Assessment and plan: 1. Syncope 2. Community Acquired PNA 3. Hypoxemia 4. Chest Pain 5. Fluid overload 6. Hypoglycemia 7. Multilevel lower thoracic compression deformities with several segments of retropulsed fragments into the spinal canal -Cont to follow neuro exam; judicious use of any sedatives or narcotics -Recommend checking TSH and Free T4 -Continuous Tele monitoring -Recommend checking ECHO with bubble study -Troponin I sent x 1 -Continue to titrate FiO2 to keep saturations > 92% -Encourage IS 10x per hour while awake -Cont abx: Azithro and Rocephin -Monitor fever and WBC -Forced diuresis with lasix; follow Cr and U op; replete lytes as needed -Recommend PFTs as outpatient once current issues improve -Encourage po and continue to monitor glucose levels -Will need to further evaluate issues noted in her thoracic spine -PT/OT The entirety of this encounter was done via Telemedicine
[2023-08-18] MEDS: Ensure Plus High Protein 120 ML LIQUID PO ×2 (11:36→16:35)
[2023-08-18 11:47] LABS: Troponin-I HS 4 pg/mL (3.0-54.0)
[2023-08-18] MEDS: QUEtiapine 100 MG Tablet 400 MG PO (20:59)
[2023-08-18] MEDS: Ceftriaxone 1 GM/50 ML BAG IV (20:59)
[2023-08-18] MEDS: Azithromycin 500 MG in Dextrose 5%-Water (250mL Bag) 250 ML 250 MG IV (21:09)
[2023-08-19] VITALS (9 sets, daily range): BP systolic 102–129; BP diastolic 60–79; PULSE 74–92; RESP 14–18; TEMP 36.4–36.9; O2SAT 80–95
[2023-08-19 06:43] LABS: Absolute Lymphocyte Count 0.95 X10^3/uL (0.83-4.51); Absolute Neutrophil Count 6.9 X10^3/uL (2.0-7.7); Basophil# 0.02 X10^3/uL; Basophil% 0.2 % (0-1); Hemoglobin 14.9 g/dL (12.0-15.0); Lymphocyte # 0.95 X10^3/ul (0.83-4.51); Lymphocyte % 11.1 % (19-41); Mean Corp Hgb Conc 31.7 g/dL (32-36); Mean Corpuscular Volume 94.6 fL (81-99); Mean Platelet Vol. 10.8 fl (6.2-12.0); Monocyte# 0.64 X10^3/uL; Monocyte% 7.5 % (0-10); NRBC Flagged by Analyzer 0 % (0-5); Neutrophil # 6.92 X10^3/uL (2.7-7.7); Neutrophil % 80.6 % (47-70); Platelet Count 164 K/mm3 (150-450); RBC Distribution Width CV 14.4 % (11.6-14.6); RBC Distribution Width SD 49.7 fl (35.1-43.9); Red Blood Count 4.97 M/mm3 (4.2-5.4); White Blood Count 8.6 K/mm3 (4.4-11.0)
[2023-08-19] MEDS: Ipratropium/Albuterol Sulfate 3 ML AMPUL.NEB INHALATION ×2 (06:53→10:53)
[2023-08-19 07:10] LABS: Anion Gap 6 (5-15); BUN 12 mg/dL (7-18); Calcium,Total 8.9 mg/dL (8.5-10.1); Chloride 109 mmol/L (98-107); EST Glomerular Filtration Rate 77 mL/min (>60); Est Glom Filt Rate - Afr Amer 93 mL/min (>60); Estimated Creatinine Clearance 65.15 ml/min; Glucose 148 mg/dL (74-106); Potassium 4.7 mmol/L (3.5-5.1); Sodium Level 139 mmol/L (136-145)
--- NOTE | 2023-08-19 10:27 | NURSING ---
pt given VSA override to q4h checks.
[2023-08-19] MEDS: Ensure Plus High Protein 120 ML LIQUID PO ×2 (10:39→13:50)
[2023-08-19] MEDS: Enoxaparin 40 MG/0.4 ML Syringe SC (10:39)
[2023-08-19] MEDS: buPROPion (XL) 300 MG TABLET.XL PO (10:39)
[2023-08-19] MEDS: Cholecalciferol (VIT D3) 25 MCG TABLET (1,000 UNITS) PO (10:39)
[2023-08-19] MEDS: Fluoxetine HCl 40 MG CAPSULE PO (10:39)
[2023-08-19] MEDS: Gabapentin 800 MG Tablet PO (10:39)
--- NOTE | 2023-08-19 11:55 | CASEMGMT ---
PAUL LINDO Assessment Face to Face with patient for initial transition planning/care coordination assessment. PAUL LINDO introduced self and role at [facility], pt voices understanding. Pt is A&Ox4 and is resting comfortably in bed and is calm. Care providers, pharmacy, and demographics verified. Admitting dx: Syncopal Episode, Pneumonia with Hypoxia PCP: Scooby Lion Specialists: Dr. Dank Dacosta (Ortho) Preferred Pharmacy: [facility] Insurance: [email or web address].ly Prescription Benefit: Yes LNOK: Eloy Fields (H) Living Arrangements: Pt lives with her SO in a 2 story home with a FFSU and 5 steps to enter ADLs/IADLs: Ind Transportation: Self, DME: [facility]. Crutches. Pt states that she does not have a pulse ox at home and was then educated about purchasing options. Pt is currently on 3L via [place]. A verbal list of local in-network DME companies provided to the pt at this time. Pt states that she prefers [facility] if she qualifies for home O2. HHC/SNF: States HHC history x5 years ago and cannot recall the agency. Denies SNF Smoking History: Pt states that she smokes 4 cigarettes per day and plans to quit Pt?s goal: Home with OP therapy Plan: Pt denies the need for HHC at this time. Pt states that she would be interested in attending OP therapy through [facility]. ASSISTANT DIRECTOR OF NURSING CM updated and to follow. Pt denies further questions or concerns at this time. CM to follow. Sandee Marquez RN, CM
[2023-08-19] MEDS: 0.9% Saline Lock 10 ML Syringe IV (13:53)
--- NOTE | 2023-08-19 14:16 | DCINST_ITS ---
Discharge Instructions Diet Discharge Diet: No restrictions Activity Discharge Activity: Return to Normal Activity Dressing / Incision Call your doctor if you observe: Fever of 101 or Higher, Shortness of breath, Dizziness, Fainting spells, Swelling in the ankles, Chest pain and Increased palpitations (irregular heartbeat) Follow Up Care Test Results: Test results from this visit will be discussed in further detail at your follow- up appointment, if applicable. Discharge Plan Admission Admit Date/Time: 08/17/23 21:20 Attending Provider: Erick Hughes Primary Care Provider: Scooby Lion Consulting Providers: Enio Glass; Feliciano Bruno; Wilder Aguilar; Adam Lange; Eloy Traylor; Janice Lopez; Isaías Escalera; Alfredo cMkenzie; Olivia Muse; Flaco Friend; Kyle Vail; Miki Gutierrez; Arun Live; Jason Smith; Dank Lora; Remi Patel Discharge Orders/Prescriptions Prescriptions: New prednisone 10 mg tablet 10 mg PO DAILY Qty: 32 0RF Rx Instructions: Take 4 tablets daily for 3 days then 3 tablets daily for 3 days then 2 tablets daily for 3 days then 1 tablet daily for 3 days then half tablet daily for 4 days cefdinir 300 mg capsule 300 mg PO BID Qty: 10 0RF azithromycin 500 mg tablet 500 mg PO DAILY 3 Days Qty: 3 0RF Continued fluoxetine [Prozac] 20 MG capsule 40 mg PO DAILY alendronate 70 mg tablet 70 mg PO QWEEK bupropion HCl 300 mg tablet extended release 24 hr 300 mg PO DAILY gabapentin 800 mg tablet 800 mg PO BID lorazepam 1 mg tablet 1 mg PO BID cholecalciferol (vitamin D3) [Vitamin D3] 25 mcg (1,000 unit) capsule 25 mcg PO DAILY quetiapine 400 mg tablet 400 mg PO QHS Referrals / Follow Up: Scooby Lion DO [Primary Care Provider] - Within 1 Week Disposition Disposition (needs filled in before D/C Order can be placed): Home, Self Care
--- NOTE | 2023-08-19 14:31 | PCM.DC.SUM ---
Providers Date of Admission: 08/17/23 Primary Care Physician: Dr. cSooby Lion, DO Consultations 08/17/23 21:57 Consult: Junior Sales Representative / Pulmonary Medicine Routine Consulting Provider: Intensivists/Pulmonary Med Reason for Consult: Pneumonia with hypoxia, diffuse ground glass opacities EMERGENT Consult: No MD Notified: Yes Date Notified: 08/17/23 Time Notified: 22:46 Method of Notification: Answering Service Comments:: Tele Pulmonary Reason For Visit: SYNCOPAL EPISODE, PNEUMONIA WITH HYPOXIA Diagnosis Discharge Diagnosis (1) Multifocal pneumonia: Status: Acute Code(s): J18.9 - Pneumonia, unspecified organism (2) Hypoxia: Status: Acute Code(s): R09.02 - Hypoxemia (3) Syncope: Status: Acute Code(s): R55 - Syncope and collapse Medications at Discharge Home Medications fluoxetine 20 mg capsule (Prozac) 40 mg PO DAILY 01/31/18 alendronate 70 mg tablet 70 mg PO QWEEK 08/17/23 bupropion HCl 300 mg 24 hr tablet, extended release 300 mg PO DAILY 08/17/23 cholecalciferol (vitamin D3) 25 mcg (1,000 unit) capsule (Vitamin D3) 25 mcg PO DAILY 08/17/23 gabapentin 800 mg tablet 800 mg PO BID 08/17/23 lorazepam 1 mg tablet 1 mg PO BID 08/17/23 quetiapine 400 mg tablet 400 mg PO QHS sleep 08/18/23 albuterol sulfate 90 mcg/actuation aerosol inhaler 2 puff inhalation Q6H PRN shortness of breath or wheezing #6.7 grams 08/19/23 azithromycin 500 mg tablet 500 mg PO DAILY 3 days #3 tabs 08/19/23 cefdinir 300 mg capsule 300 mg PO BID #10 caps 08/19/23 prednisone 10 mg tablet 10 mg PO DAILY #32 tabs 08/19/23 Hospital Course Operations None Procedures None Summary of Care Provided Minutes Spent on Discharge: 34 Hospital Course: Per HPI: ALEXIS BRAGG, is a 62 F who presented to [facility] ED on 08/17/2023 after a syncopal episode. Saw patient at bedside on the floor shortly after arrival over from ED. Patient was sleeping on arrival to the room. Upon awakening, patient was answering questions appropriately and appeared comfortable. She was breathing comfortably on 3 L nasal cannula at rest. Patient states she was at a family libertarian today, felt well at the libertarian until walking out to the car when she somewhat suddenly developed lightheadedness and passed out. Family member noted that she fell into the car onto the seat and was out for about a minute. They called EMS at that time. Her blood sugar was noted to be low at 61 and her oxygen saturation was at 75% on room air. She was given oral glucose with some improvement in glucose to 79 and was started on supplemental oxygen. In the ED, she remained hypoxic and was requiring 3 L nasal cannula to maintain saturations in the low 90s. CTA chest was obtained and showed no PE but findings were consistent with possible pneumonia. Patient does not have diagnosed COPD but she is a longtime smoker and currently smokes about 5 cigarettes/day. Given concern for pneumonia and new hypoxia, she was admitted for further management. Patient currently denies any shortness of breath at rest. She denies any chest pain or fever/chills. Patient states that she has had a dry cough and intermittent pleuritic chest pain for about 1 month. She has noticed worsening shortness of breath with exertion over that timeframe. She lives at home with her and is generally able to do everything around the house for herself without issue. Denies any other acute concerns today. Vitals on admit notable for oxygen saturations in the low 90s on 3 to 4 L nasal cannula, otherwise unremarkable. Labs notable for potassium 3.2, creatinine 1.13 (baseline 0.7-0.8), otherwise unremarkable. BNP 18. Troponins negative x 2. CTA chest showed no PE and was read as showing bilateral mid and lower lung infiltrates suggesting pneumonia along with interlobular septal thickening suggesting mild pulmonary edema; on my read, patient has prominent airways and seems to have mild diffuse groundglass opacities bilaterally. Hospital Course: 1. Community-acquired pneumonia with hypoxia secondary to COPD exacerbation/tobacco abuse?62-year-old female presented to the hospital with increasing shortness of breath. She had a CT of the chest that demonstrated no PE but multifocal pneumonia. She also has a chronic back pain issue and was noted to have a compression fracture with bony fragments retropulsed, neurologically she is intact and this is a chronic issue that she can follow-up for as an outpatient. She was started on broad-spectrum antibiotics with Rocephin and Romycin and sputum cultures pending Gram stain is positive and I discussed with patient that it would be beneficial to stay for another day or 2 to see if this could finalize so we could narrow down antibiotics however she preferred to go home today. She is breathing little bit better and she did have an amatory pulse ox that demonstrated the need of 3 L while at rest and with ambulation. I have reviewed the oxygen testing, and this patient qualifies for the home equipment and portability. The patient is mobile in the home and the community. Will plan to discharge on a steroid taper as well as cefdinir for another 5 days and azithromycin for another 3 days. She does not have any volume overload troponins, have been negative and her BNP was normal, she does not need Lasix. Will continue with albuterol as well on discharge and given the likelihood of COPD would recommend outpatient follow-up with pulmonology for PFTs and continue treatment. I discussed with her the plan for discharge today she expressed understanding of the risk and benefits of going home and would like to go home today. 2. Anxiety, depression, chronic thoracic compression fractures are chronic medical problems which complicate her care. Her home medications were continued where appropriate Physical Exam Narrative General: Alert, Oriented x3, Cooperative, No apparent distress HEENT: Atraumatic, PERRLA, EOMI, Normocephalic Oral: Moist Mucosa Neck: Supple, No JVD Lungs: Diminished, Normal air movement, No rhonchi, No wheeze, No rales, bibasilar crackles Cardiovascular: Regular rate, Regular Rhythm, Normal S1, Normal S2, No murmurs Abdomen: Soft, Non Tender, Non-Distended, No Hepato-splenomegaly Extremities: No edema, Capillary Refill Less than 3 Seconds Skin: No rashes, No breakdown Musculoskeletal: No Tenderness to Palpation of Joints or Extremities Neurological: No focal neurological deficits, Motor Exam 5/5 strength throughout, Sensory exam intact to light touch and pain Psych/Mental Status: Normal Affect, Appropriate Weight / BMI Weight Weight: 150 lb 5.684 oz Body Mass Index (BMI) 27.5 ABG / Lab / Microbiology Data 08/19/23 06:20 08/19/23 06:20 Laboratory: Laboratory Results - last 24 hr 08/19/23 06:20: WBC 8.6, RBC 4.97, Hgb 14.9, Hct 47.0, MCV 94.6, MCH 30.0, MCHC 31.7 L, RDW Std Deviation 49.7 H, RDW Coeff of Raya 14.4, Plt Count 164, MPV 10.8, Immature Gran % (Auto) 0.600, Neut % (Auto) 80.6 H, Lymph % (Auto) 11.1 L, [place] % (Auto) 7.5, Eos % (Auto) 0.0, Baso % (Auto) 0.2, Absolute Neuts (auto) 6.9, Absolute Lymphs (auto) 0.95, Nucleated RBC % 0, Sodium 139, Potassium 4.7, Chloride 109 H, Carbon Dioxide 24.0, Anion Gap 6, BUN 12, Creatinine 0.80, Estim Creat Clear Calc 65.15, Est GFR (MDRD) Af Amer 93, Est GFR (MDRD) Non-Af 77, BUN/Creatinine Ratio 15.0, Glucose 148 H, Calcium 8.9 Microbiology: Microbiology 08/18/23 21:15 Sputum, Expectorated/Coughed Gram Stain - Final 08/18/23 04:10 Urine, Clean Catch Streptococcus pneumoniae Antigen (M - Final 08/18/23 04:10 Urine, Clean Catch Legionella Antigen - Final 08/17/23 22:45 Mucosa - Nasopharyngeal Respiratory Panel (PCR) - Final 08/17/23 22:45 Mucosa - Nasopharyngeal Coronavirus COVID-19 PCR - Final D/C Instructions Discharge Diet: No restrictions Call your doctor if you observe: Fever of 101 or Higher, Shortness of breath, Dizziness, Fainting spells, Swelling in the ankles, Chest pain and Increased palpitations (irregular heartbeat) Meaningful Use Info Meaningful Use Meaningful Use Diagnoses (Choose all that apply): None applicable Ischemic Stroke Statin Dosing Therapy Reference: STATIN DOSE THERAPY REFERENCE: * Patients > 75 years receive moderate or high dose statin therapy. * Patients 75 years or YOUNGER should receive HIGH intensity statin dose unless contraindicated. You will be required to document reason for non-treatment if statin daily dose does not meet guidelines. HIGH DOSE STATIN THERAPY DAILY Atorvastatin > than or = to 40 mg Rosuvastatin > than or = to 20 mg Amlodipine + Atorvastatin > than or = to 2.5/40 mg Ezetimibe + Simvastatin 10/80 mg Simvastatin 80mg Discharge Plan Admission Admit Date/Time: 08/17/23 21:20 Attending Provider: Erick Hughes Primary Care Provider: Scooby Lion Consulting Providers: Enio Glass; Feliciano Bruno; Wilder Aguilar; Adam Lange; Eloy Traylor; Janice Lopez; Isaías Escalera; Alfredo Mckenzie; Olivia Muse; Flaco Friend; Kyle Vail; Miki Gutierrez; Arun Live; Jason Smith; Dank Lora; Remi Patel Discharge Orders/Prescriptions Prescriptions: New prednisone 10 mg tablet 10 mg PO DAILY Qty: 32 0RF Rx Instructions: Take 4 tablets daily for 3 days then 3 tablets daily for 3 days then 2 tablets daily for 3 days then 1 tablet daily for 3 days then half tablet daily for 4 days cefdinir 300 mg capsule 300 mg PO BID Qty: 10 0RF azithromycin 500 mg tablet 500 mg PO DAILY 3 Days Qty: 3 0RF albuterol sulfate 90 mcg/actuation HFA aerosol inhaler 2 puff inhalation Q6H PRN (Reason: shortness of breath or wheezing) Qty: 6.7 3RF Continued fluoxetine [Prozac] 20 MG capsule 40 mg PO DAILY alendronate 70 mg tablet 70 mg PO QWEEK bupropion HCl 300 mg tablet extended release 24 hr 300 mg PO DAILY gabapentin 800 mg tablet 800 mg PO BID lorazepam 1 mg tablet 1 mg PO BID cholecalciferol (vitamin D3) [Vitamin D3] 25 mcg (1,000 unit) capsule 25 mcg PO DAILY quetiapine 400 mg tablet 400 mg PO QHS Referrals / Follow Up: Scooby Lion DO [Primary Care Provider] - Within 1 Week Wilder Aguilar DO [Med Staff - Active Staff] - Within 3 Months Disposition Disposition (needs filled in before D/C Order can be placed): Home, Self Care Charges/Coding Visit Charges Inpatient E&M: [id number] Disch Hosp >30min
--- NOTE | 2023-08-19 14:52 | PHA.DC.MC.R ---
Pharmacy [facility] has performed discharge medication reconciliation and counseling for this patient. Patient would like meds to beds, this [facility] called retail and requested delivery. 1. ALBUTEROL MDI 2PUFFS INHALATION Q6H PRN SOB/WHEEZING 1. AZITHROMYCIN 500MG PO DAILY X 3 DAYS 2. CEFDINIR 300MG PO BID X 5 DAYS 3. PREDNISONE 40MG PO DAILY X 3 DAYS, 30MG X 3 DAYS, 20MG X 3 DAYS, 10MG X 3 DAYS, 5MG X 4 DAYS The patient's discharge medication list was reviewed for discrepancies and discrepancies were resolved. The patient was counseled on the following discharge medications and changes in medications for homegoing were reviewed. The Reason for Use, instructions for use, and potential side effects were reviewed for all new medications. The patient's questions regarding all of their medications were answered. The patient was able to verbally demonstrate an understanding of their discharge medications. Patient counseled by sample finisherPoncho. Medications at Discharge Home Medications fluoxetine 20 mg capsule (Prozac) 40 mg PO DAILY 01/31/18 alendronate 70 mg tablet 70 mg PO QWEEK 08/17/23 bupropion HCl 300 mg 24 hr tablet, extended release 300 mg PO DAILY 08/17/23 cholecalciferol (vitamin D3) 25 mcg (1,000 unit) capsule (Vitamin D3) 25 mcg PO DAILY 08/17/23 gabapentin 800 mg tablet 800 mg PO BID 08/17/23 lorazepam 1 mg tablet 1 mg PO BID 08/17/23 quetiapine 400 mg tablet 400 mg PO QHS sleep 08/18/23 albuterol sulfate 90 mcg/actuation aerosol inhaler 2 puff inhalation Q6H PRN shortness of breath or wheezing #6.7 grams 08/19/23 azithromycin 500 mg tablet 500 mg PO DAILY 3 days #3 tabs 08/19/23 cefdinir 300 mg capsule 300 mg PO BID #10 caps 08/19/23 prednisone 10 mg tablet 10 mg PO DAILY #32 tabs 08/19/23
--- NOTE | 2023-08-19 15:00 | CASEMGMT ---
PAUL LINDO NOTE: Home O2 testing has been completed. Pt qualifies for O2 @ 3 l/m continuously. Script obtained from Dr Hughes for home O2 and [facility] w[facility]home O2 testing results. Call placed to Dianne @ [facility] and she was made aware of referral and that pt is discharging today. She states will have O2 tank delivered to pt's room today. Script for OP therapy also obtained from Dr Hughes and provided to pt at this time. She was made aware she can take to any location of choice. She verbalizes understanding. She denies having other discharge needs or concerns. Ysabel PERALES RN CM
--- NOTE | 2023-08-19 17:19 | CASEMGMT ---
ADVANCE DIRECTIVE VALIDATION Upon admission patient reported to have advance directives in place. Directies not on file. Met with patient and as patient preparing to leave the hospital. Patient confirms to have directives and verbally agreed to bring forms in at a later time. Patient up and moving, ready for discharge. -SKYLAR Terry
--- NOTE | 2023-08-19 20:02 | NURSING ---
08/19/23@ 1000 and 0913, this nurse reviewed assessment and POC.
--- NOTE | 2023-08-20 12:10 | CASEMGMT ---
Addendum entered by Filomena Wahl 08/20/23 14:46: 1401- TC to pt, she states she does have her oxygen set up. Pt states Steven was in her driveway when she got home. Pt states she feels well. She states she does not feel sob. Denies any questions at this time. Original Note: PAUL LINDO notified that pt was in main lobby with oxygen tank. RN BELGICA to lobby, pt reports she ran out of oxygen and wondered how she was to get it filled. Pt states she was not aware to call DME company upon arriving home. Pt unsure of DME company. Pt states she does not have a pox and is not able to afford one. PAUL LINDO to office and obtained pox, also looked up pt DME provider. Noted on dc plan, Steven. TC to Steven, spoke with Charis, she states that the [employer] branch attempted to call pt without success and did a drive by last evening also without success. RN BELGICA arrived back with pt, another RN BELGICA stayed with pt at this time, pt states she did not get home until 8pm. Provided pt with pox and checked oxygen level, read 91% and heartrate 94%. Provided pt with Steven's phone number. Pt is aware that Steven will be to her home within a half hour as she states she is on her way home now. Pt aware to call [facility] if Steven does not arrive. Pt phone is a landline, pt does not have cell phone. Offered to take pt portable tank to her car, pt denies need for this. Pt reports on her way here she ran out of gas and had to walk 2 blocks. Pt denies further needs at this time. She does feel well to go home.
== END 2023-08-19 17:51 | disposition home or self-care (01) | DRG 140 ==
LOC: ED 20:23 → PCU 21:34
PROVIDERS: Internal Medicine; Physician Assistant; Admitting Provider Hospitalist; Emergency Provider Emergency Medicine; PCP Family Medicine; Visit Provider Family Medicine
DX: J44.0 Chronic obstructive pulmonary disease with (acute) lower respiratory infection (principal); J18.9 Pneumonia, unspecified organism; N17.9 Acute kidney failure, unspecified; J44.1 Chronic obstructive pulmonary disease with (acute) exacerbation; I10 Essential (primary) hypertension; F32.A Depression, unspecified; E86.0 Dehydration; F17.210 Nicotine dependence, cigarettes, uncomplicated; I25.10 Atherosclerotic heart disease of native coronary artery without angina pectoris; E78.5 Hyperlipidemia, unspecified; E87.6 Hypokalemia; G62.9 Polyneuropathy, unspecified; E87.70 Fluid overload, unspecified; F41.9 Anxiety disorder, unspecified; E16.2 Hypoglycemia, unspecified; M48.54XD Collapsed vertebra, not elsewhere classified, thoracic region, subsequent encounter for fracture with routine healing; R55 Syncope and collapse; R09.02 Hypoxemia; G89.29 Other chronic pain; Z11.52 Encounter for screening for COVID-19; Z79.899 Other long term (current) drug therapy; Z95.5 Presence of coronary angioplasty implant and graft
CPT/HCPCS: 36415; 71275; 80048; 83735; 83880; 84100; 84484; 85025; 85027; 87070; 87205; 87449; 87633; 87635; 93005; 94640; 94668; 97802; 99252; 99285; 99406; J7030; Q9967; A4216; G0463; J2405

== ENCOUNTER → 2024-07-31 | Outpatient (CLI) | payer MEDICAID, SELFPAY ==
[2024-08-04 21:07] LABS: Hepatitis B Core Ab Total Negative (Negative); QNTFERON TB Mitogen Value 1.21 IU/mL (.); QNTFERON TB Nil Value 0.05 IU/mL (.); QNTFERON TB1+ Ag Value 0.05 IU/mL (.); QNTFERON TB2+ Ag Value 0.04 IU/mL (.); QNTIFERON TB Positive Criteria Negative (Negative)
== END | disposition home or self-care (01) ==
LOC: MTLAB 09:37
PROVIDERS: PCP Family Medicine; Referring Provider Family Medicine; Visit Provider Family Medicine
DX: L40.0 Psoriasis vulgaris (principal); Z79.899 Other long term (current) drug therapy
CPT/HCPCS: 36415; 86480; 86704